=== PATIENT | female | born 1950 | race Caucasian/White ===

== ENCOUNTER 2020-12-11 11:03 | Outpatient (REF) | payer MEDICARE, SELFPAY ==
--- NOTE | ~2020-12-11 | XR_ITS ---
EXAMINATION: XR CHEST CLINICAL INFORMATION: Cough COMPARISON: None TECHNIQUE: 2 views of the chest were obtained. FINDINGS: The lungs are well expanded. There is no focal consolidation, edema, or effusion. No pneumothorax. The cardiomediastinal silhouette is within normal limits. No acute osseous abnormality. XR/XR chest 2V IMPRESSION: No acute pulmonary finding.
== END 2020-12-11 11:04 | disposition home or self-care (01) ==
LOC: HO.XRAY 11:03
PROVIDERS: Absent Provider Internal Medicine Geriatric Medicine; PCP Internal Medicine Geriatric Medicine; Visit Provider Emergency Medicine
DX: R05 Cough (principal)
CPT/HCPCS: 71046

== ENCOUNTER 2022-07-30 10:46 | Outpatient (REF) | payer MEDICARE, SELFPAY ==
--- NOTE | ~2022-07-30 | MM_ITS ---
EXAMINATION: MM SCREENING DIGITAL BREAST TOMOSYNTHESIS, BILATERAL CLINICAL INFORMATION: Screening. Asymptomatic. The lifetime risk of breast cancer based on the Tyrer-Cuzick Model is 5.7%. COMPARISON: Mammography: May 21, 2018 and studies dating back to September 02, 2014 TECHNIQUE: Digital breast tomosynthesis is performed in both the craniocaudal and mediolateral oblique views along with computer-aided detection (CAD). Synthesized 2D images are generated from the tomosynthesis. FINDINGS: The breasts are almost entirely fatty (ACR BI-RADS breast composition Category a). There are no significant masses, abnormal calcifications, or other abnormalities. MM/MM tomosynthesis screening BI IMPRESSION: No significant changes from prior exam. ASSESSMENT: BI-RADS 1: Negative RECOMMENDATION: Routine annual mammography screening. This patient's information was entered into a reminder system with a target due date for their next mammogram.
== END 2022-07-30 10:47 | disposition home or self-care (01) ==
LOC: HO.MAMMO 10:46
PROVIDERS: PCP Internal Medicine Geriatric Medicine; Visit Provider Internal Medicine Geriatric Medicine
DX: Z12.31 Encounter for screening mammogram for malignant neoplasm of breast (principal)
CPT/HCPCS: 77063; 77067

== ENCOUNTER 2023-07-18 12:11 | Outpatient (REF) | payer MEDICARE, SELFPAY ==
--- NOTE | ~2023-07-18 | XR_ITS ---
EXAMINATION: XR ELBOW, LEFT CLINICAL INFORMATION: Left elbow tendinitis, pain began today. COMPARISON: None available. TECHNIQUE: AP, lateral, and oblique views of the left elbow. FINDINGS: The bones and soft tissues are normal. No fracture or joint effusion. Alignment is anatomic. Joint spaces are maintained. XR/XR elbow LT min 3V IMPRESSION: Unremarkable left elbow.
== END 2023-07-18 12:12 | disposition home or self-care (01) ==
LOC: HO.HHCX 12:11
PROVIDERS: Visit Provider Internal Medicine
DX: M77.8 Other enthesopathies, not elsewhere classified (principal)
CPT/HCPCS: 73080

== ENCOUNTER 2023-07-28 12:43 | Outpatient (AMB) | payer MEDICARE, SELFPAY ==
--- NOTE | 2023-07-28 12:53 | MHC.OFFVIS ---
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 Patient reports ongoing pain for a month. She states that she went to a walk in center and they gave her prednisone for her pain which is giving her relief. Patient reports her pain is getting better every day. Allergies acetaminophen [From MIDRIN] Allergy (Severe, Verified 07/28/23 12:57) VOMITING dichloralphenazone [From MIDRIN] Allergy (Severe, Verified 07/28/23 12:57) VOMITING isometheptene [From MIDRIN] Allergy (Severe, Verified 07/28/23 12:57) VOMITING metoclopramide [From REGLAN] Allergy (Severe, Verified 07/28/23 12:57) SEVERE VOMITNG morphine [MORPHINE] Allergy (Severe, Verified 07/28/23 12:57) ANXIOUS, DYSPHORIA, anomalous reaction acyclovir [ACYCLOVIR] Allergy (Intermediate, Verified 07/28/23 12:57) HIVES sumatriptan Allergy (Unknown, Verified 07/28/23 12:57) Unknown amitriptyline Adverse Reaction (Unknown, Verified 07/28/23 12:57) palpitations Amitriptyline Allergy (Unknown, Uncoded 07/28/23 12:57) Unknown Organidin NR Allergy (Unknown, Uncoded 07/28/23 12:57) Unknown Midrin Adverse Reaction (Unknown, Uncoded 05/28/17 00:00) vomiting 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 The patient reports ongoing pain for a month, since 06/2023. She claims she was seen at a Walk-in center and was prescribed Prednisone for her pain, which gave her relief. She states the pain is getting better daily. [facility] Social History (Updated 07/28/23 @ 13:00 by Lili Christianson) Alcohol intake: never Patient Tobacco Use Status: Never used Tobacco Current occupational status: disabled Current occupation: right hand dominant Review of Systems Const All systems reviewed & are unremarkable except as noted in HPI and below Physical Exam Vital Signs: BMI result Body Mass Index 35.3 Const General: cooperative and no acute distress Orientation/consciousness: patient oriented x3 Resp Effort & Inspection: normal respiratory effort and able to speak in complete sentences Cardio Peripheral pulses: Peripheral pulses 2+ throughout Skin General skin exam: no rashes or lesions noted Neuro General: patient oriented x3 Extrem Other: Left elbow: Normal to inspection. No ecchymosis, erythema, or edema. No tenderness to palpation over the olecranon. Minimal tenderness to palpation lateral epicondyle. No tenderness medial epicondyle. Able to full flexion, extend, pronation, and supination. Diminished sensation numbness and tingling bilaterally upper extremities due to diabetic neuropathy. Assessment & Plan Assessment & Plan (1) Left tennis elbow: Code(s): M77.12 - Lateral epicondylitis, left elbow Plan Ms. Bernal is a 72-year-old right hand dominant female who presents in the office today, as a new patient, for an evaluation of left elbow pain. The patient reports ongoing pain for a month, since 06/2023. She claims she was seen at a Walk-in center and was prescribed Prednisone for her pain, which gave her relief. She states the pain is getting better daily. The patient confirms completion of the prescription for Prednisone, which gave her relief from her pain. She is no longer experiencing any symptoms. However, she would like to be referred to be seen for her bilateral upper extremity numbness and tingling in regards to her diabetic neuropathy. She will be scheduled to physiatry for further evaluation and treatment. Follow up with orthopedics will be PRN, or sooner if needed. Patient Instructions: Scribed for Edna Stout PA-C by [facility], on 07/28/2023 at 12:46 pm, EST. Coding Level of Care Code New Pt Level 3 (81343) Diagnoses Left tennis elbow M77.12
[2023-07-28 13:00] VITALS: BMI 35.3
== END 2023-07-28 13:21 | disposition home or self-care (01) ==
PROVIDERS: PCP Internal Medicine Geriatric Medicine; Visit Provider Physician Assistant
DX: M77.12 Lateral epicondylitis, left elbow (principal)
CPT/HCPCS: 99203

== ENCOUNTER → 2023-07-28 12:43 | Outpatient (BNVA) | payer MEDICARE, SELFPAY | PROVIDERS: PCP Internal Medicine Geriatric Medicine; Visit Provider Physician Assistant | DX: M77.12 Lateral epicondylitis, left elbow (principal) | CPT/HCPCS: 99202 ==

== ENCOUNTER 2023-09-24 09:26 | Outpatient (AMB) | payer MEDICARE, SELFPAY ==
[2023-09-24 09:46] VITALS: BMI 34.7
--- NOTE | 2023-09-24 09:46 | A.OFFVIS_ITS ---
Intake Vital Signs 09/24/23 09:46 Height 5 ft 2 in Weight 190 lb BMI 34.7 Intake Visit Reasons: New Prob- B/L Hand Feet pain Intake Note: Elsa 72 yr old female presents today for a new problem visit for bilateral foot and hand pain. States she is experiencing numbness and tingling in her upper and lower extremities. States she is diabetic and feels her symptoms are worsening. States she has had EMG studies about 6-7 years ago. States she has fallen multiple times injuring her knees and hands. Patient has tried P.T with temporary relief. Hx of left hand fx about 5-6 years ago. Allergies acetaminophen [From MIDRIN] Allergy (Severe, Verified 09/24/23 10:00) VOMITING dichloralphenazone [From MIDRIN] Allergy (Severe, Verified 09/24/23 10:00) VOMITING isometheptene [From MIDRIN] Allergy (Severe, Verified 09/24/23 10:00) VOMITING metoclopramide [From REGLAN] Allergy (Severe, Verified 09/24/23 10:00) SEVERE VOMITNG morphine [MORPHINE] Allergy (Severe, Verified 09/24/23 10:00) ANXIOUS, DYSPHORIA, anomalous reaction acyclovir [ACYCLOVIR] Allergy (Intermediate, Verified 09/24/23 10:00) HIVES sumatriptan Allergy (Unknown, Verified 09/24/23 10:00) Unknown amitriptyline Adverse Reaction (Unknown, Verified 09/24/23 10:00) palpitations Amitriptyline Allergy (Unknown, Uncoded 09/24/23 10:00) Unknown Organidin NR Allergy (Unknown, Uncoded 09/24/23 10:00) Unknown Midrin Adverse Reaction (Unknown, Uncoded 09/24/23 10:00) vomiting HPI HPI Comments History of Present Illness Details Diabetic diagnosed 1990. At one time she was on insulin. Now on Trulicity. Non alcohol drinker. Hypothyroid. No history of cancer, hepatitis or HIV. Numbness on her feet and hands, tingling in hands. 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 Trigger finger right middle finger. EMG not available for my review. Was seeing neurologist for memory issues and frequent falls. Does not know what diagnosis was. [facility] Social History Alcohol intake: never Patient Tobacco Use Status: Never used Tobacco Current occupational status: disabled Current occupation: right hand dominant Review of Systems Const All systems reviewed & are unremarkable except as noted in HPI and below Physical Exam Vital Signs: BMI result Body Mass Index 34.7 Constitutional: Patient appears to be in no acute distress, well nourished and well developed. MSK: She complains of trigger finger but none seen on exam today. No intrinsic hand weakness noted. No atrophy noted. Jeff test negative. Carpal compression test negative. Tinel sign negative. Strength is 5/5 in all muscle groups tested. No increased tone noted. Neurological: Neurologic examination of the upper and lower extremities was nonfocal with intact sensation, muscle stretch reflexes and without focal motor deficits . Villarreal?s negative bilaterally. Babinski was down going bilaterally. Clonus was negative. Results Reviewed Results Reviewed: Last HBA1c 7.4 I reviewed records from the following: ortho Assessment & Plan Assessment & Plan (1) Numbness in feet: Code(s): R20.0 - Anesthesia of skin (2) Numbness in both hands: Code(s): R20.0 - Anesthesia of skin (3) Trigger finger of right hand: Code(s): M65.30 - Trigger finger, unspecified finger Qualifiers: Trigger finger location: middle finger Qualified Code(s): M65.331 - Trigger finger, right middle finger Plan Suspect neuropathy, could be related to diabetes or hypothyroidism. No signs of Carpal Tunnel Syndrome clinical on exam. Possible trigger finger right 3rd digit. We will schedule for EMG bilateral upper and lower extremities. We will put on a finger splint for possible trigger finger. Assessment and plan discussed with patient, and patient was agreeable. All questions were answered thoroughly. Carly Talbert MD, NIKOLAI Board Certified, [place] [employer] and Rehabilitation (ABPMR) Board Certified, [place] [employer] Electrodiagnostic Medicine (ABEM) Orders: Orders NE electromyogram (EMG) Today R20.0 - Anesthesia of skin NE nerve conduction velocity Today R20.0 - Anesthesia of skin Coding Level of Care Code New Pt Level 4 (09190) Diagnoses Numbness in feet R20.0 Numbness in both hands R20.0 Trigger middle finger of right hand M65.331 Trigger finger location: middle finger
== END 2023-09-24 10:32 | disposition home or self-care (01) ==
PROVIDERS: PCP Internal Medicine Geriatric Medicine; Visit Provider Physical Medicine & Rehabilitation
DX: R20.0 Anesthesia of skin (principal); M65.331 Trigger finger, right middle finger
CPT/HCPCS: 99204

== ENCOUNTER → 2023-09-24 09:26 | Outpatient (BNVA) | payer MEDICARE, SELFPAY | PROVIDERS: PCP Internal Medicine Geriatric Medicine; Visit Provider Physical Medicine & Rehabilitation | DX: R20.0 Anesthesia of skin (principal); M65.331 Trigger finger, right middle finger | CPT/HCPCS: 99202 ==

== ENCOUNTER 2023-11-06 13:07 | Outpatient (REF) | payer MEDICARE, SELFPAY ==
--- NOTE | 2023-11-06 13:12 | EMG_ITS ---
Chief complaint: History of diabetes, hypothyroidism, numbness on both hands, right worse than left. Numbness on right leg worse than left. Trigger finger right digit 3. Reason for referral: Evaluate for ne Procedure done: Bilateral upper extremities and lower extremity NCS/EMG Precautions and/or limitations: None The limb temperature was monitored continuously and remained between 32-36 degrees C during the performance of the NCS. Nerve Conduction Studies Anti Sensory Summary Table ?Stim Site NR Onset (ms) Norm Onset (ms) Peak (ms) Norm Peak (ms) O-P Amp (?V) Norm O-P Amp Site1 Site2 Delta-0 (ms) Dist (cm) Mark (m/s) Norm Mark (m/s) Left Median Anti Sensory (2nd Digit) Wrist ? 3.3 4.0 <3.6 22.9 >10 Wrist 2nd Digit 3.3 14.0 42 Right Median Anti Sensory (2nd Digit) Wrist ? 3.3 4.7 <3.6 13.3 >10 Wrist 2nd Digit 3.3 14.0 42 Right Radial Anti Sensory (Thumb) Forearm ? 1.4 2.0 <3.1 21.0 Forearm Thumb 1.4 0.0 Left Sural Anti Sensory (Lat Mall) Calf ? 1.9 2.9 <4.0 11.6 >5.0 Calf Lat Mall 1.9 14.0 74 Right Sural Anti Sensory (Lat Mall) Calf ? 2.7 3.5 <4.0 5.3 >5.0 Calf Lat Mall 2.7 14.0 52 Left Ulnar Anti Sensory (5th Digit) Wrist ? 2.8 3.3 <3.7 4.2 >15.0 Wrist 5th Digit 2.8 14.0 50 Right Ulnar Anti Sensory (5th Digit) Wrist ? 2.4 3.1 <3.7 3.2 >15.0 Wrist 5th Digit 2.4 14.0 58 Motor Summary Table ?Stim Site NR Onset (ms) Norm Onset (ms) O-P Amp (mV) Norm O-P Amp iAmp (mV) Amp (1st) (%) Site1 Site2 Delta-0 (ms) Dist (cm) Mark (m/s) Norm Mark (m/s) Left Median Motor (Abd Poll Brev) Wrist ? 3.9 <3.9 4.8 >4.5 6.0 100.0 Elbow Wrist 3.3 20.0 61 >45 Elbow ? 7.2 4.1 5.2 85.4 Right Median Motor (Abd Poll Brev) Wrist ? 4.8 <3.9 6.8 >4.5 8.2 100.0 Elbow Wrist 3.6 19.0 53 >45 Elbow ? 8.4 6.2 7.7 91.2 Left Peroneal Motor (Ext Dig Brev) Ankle ? 3.9 <4.0 2.8 >2.5 3.3 100.0 Ankle Ext Dig Brev 3.9 0.0 B Fib ? 9.8 3.1 3.7 110.7 B Fib Ankle 5.9 30.0 51 >40 Poplt ? 10.5 3.0 3.6 107.1 Poplt B Fib 0.7 5.0 71 >40 Right Peroneal Motor (Ext Dig Brev) Ankle ? 3.0 <4.0 1.2 >2.5 1.3 100.0 Ankle Ext Dig Brev 3.0 0.0 B Fib ? 9.6 1.3 1.6 108.3 B Fib Ankle 6.6 29.0 44 >40 Poplt ? 11.0 1.4 1.6 116.7 Poplt B Fib 1.4 5.0 36 >40 Left Tibial Motor (Abd Morales Brev) Ankle ? 4.3 <5 3.9 >2.5 5.6 100.0 Ankle Abd Morales Brev 4.3 0.0 Knee ? 11.6 1.9 2.4 48.7 Knee Ankle 7.3 34.0 47 >40 Right Tibial Motor (Abd Morales Brev) Ankle ? 3.8 <5 2.9 >2.5 4.3 100.0 Ankle Abd Morales Brev 3.8 0.0 Knee ? 10.7 3.7 5.1 127.6 Knee Ankle 6.9 37.0 54 >40 Left Ulnar Motor (Abd Dig Minimi) Wrist ? 3.0 <3.0 6.4 >5 7.3 100.0 B Elbow Wrist 3.0 18.0 60 >45 B Elbow ? 6.0 5.4 6.4 84.4 A Elbow B Elbow 1.5 10.0 67 >45 A Elbow ? 7.5 5.1 6.1 79.7 Right Ulnar Motor (Abd Dig Minimi) Wrist ? 2.7 <3.0 6.5 >5 7.8 100.0 B Elbow Wrist 3.0 18.0 60 >45 B Elbow ? 5.7 7.2 8.4 110.8 A Elbow B Elbow 1.6 10.0 63 >45 A Elbow ? 7.3 5.9 7.0 90.8 EMG ?Side Muscle Nerve Root Ins Act Fibs Psw Amp Dur Poly Recrt Int Pat Comment Right 1stDorInt Ulnar C8-T1 Nml Nml Nml Nml Nml 0 Nml Complete Right Biceps Musculocut C5-6 Nml Nml Nml Nml Nml 0 Nml Complete Right Triceps Radial C6-7-8 Nml Nml Nml Nml Nml 0 Nml Complete Right Deltoid Axillary C5-6 Nml Nml Nml Nml Nml 0 Nml Complete Right FlexCarpiUln Ulnar C8,T1 Nml Nml Nml Nml Nml 0 Nml Complete Right AbdHallucis MedPlantar S1-2 Nml Nml Nml Nml Nml 0 Nml Complete Right AntTibialis Dp Br Peron L4-5 Nml Nml Nml Nml Nml 0 Nml Complete Right PostTibialis Tibial L5, S1 Nml Nml Nml Nml Nml 0 Nml Complete Right MedGastroc Tibial S1-2 Nml Nml Nml Nml Nml 0 Nml Complete Right VastusMed Femoral L2-4 Nml Nml Nml Nml Nml 0 Nml Complete FINDINGS: Right median motor nerve showed prolonged distal latency, normal amplitude and normal conduction velocity. Bilateral median sensory nerve showed prolonged peak latency. Right peroneal nerve showed normal distal latency, small amplitude and slow conduction velocity across the fibular neck. All other nerves tested were within normal. Concentric needle EMG was performed in selected muscles of the right upper and lower extremity. Study did not reveal signs of electric abnormalities as shown in the table below. IMPRESSION: 1. This is an abnormal study. 2. There is electrodiagnostic evidence for right moderate-severe and left mild median neuropathy at the wrist, consistent with Carpal Tunnel Syndrome. 3. There is electrodiagnostic evidence for right peroneal neuropathy at the fibular neck. 4. There is no electrodiagnostic evidence for ulnar neuropathy, brachial plexopathy, cervical radiculopathy. tibial neuropathy. lumbosacral plexopathy, lumbar radiculopathy, or a more diffuse peripheral neuropathy. CLINICAL COMMENT: For Carpal Tunnel Syndrome: We will refer to Dr. Gonzales for consideration of surgery.. For peroneal neuropathy: Will refer to PT. Watch out for footdrop. Continue good control of diabetes. Thank you for your kind referral. Carly Talbert MD, NIKOLAI Board Certified, [place] Board [employer] and Rehabilitation (ABPMR) Board Certified, [place] Board [employer] Electrodiagnostic [employer] (ABEM) CODIN [id number] x 2 MTDD
== END 2023-11-06 13:08 | disposition home or self-care (01) ==
LOC: HO.NEURO 13:07
PROVIDERS: PCP Internal Medicine Geriatric Medicine; Visit Provider Physical Medicine & Rehabilitation
DX: R20.0 Anesthesia of skin (principal); R20.2 Paresthesia of skin; M65.331 Trigger finger, right middle finger
CPT/HCPCS: 95886; 95913

== ENCOUNTER → 2023-11-06 13:12 | Outpatient (BNV) | payer MEDICARE, SELFPAY | PROVIDERS: PCP Internal Medicine Geriatric Medicine; Visit Provider Physical Medicine & Rehabilitation | DX: G56.03 Carpal tunnel syndrome, bilateral upper limbs (principal); G57.31 Lesion of lateral popliteal nerve, right lower limb | CPT/HCPCS: 95886; 95913 ==

== ENCOUNTER 2023-12-23 12:27 | Outpatient (AMB) | payer MEDICARE, SELFPAY ==
[2023-12-23 13:02] VITALS: BMI 34.7
--- NOTE | 2023-12-23 13:02 | A.OFFVIS_ITS ---
Intake Vital Signs 12/23/23 13:02 Height 5 ft 2 in Weight 190 lb BMI 34.7 Intake Visit Reasons: New Prob-Carpal tunnel syndrome, bilateral Intake Note: Elsa 73 yr old right hand dominant female presents today for her numbness and tingling in bilateral hands. Symptoms have been presents for about 1 year and has worsen in the last few months. States her right is worse. She is also hav0ng locking of her right middle finger every morning. States it takes her a while to straighten her finger and is painful. EMG done with Dr. Fischer. Patient is diabetic and doesn't recall her A1C number. Allergies acetaminophen [From MIDRIN] Allergy (Severe, Verified 12/23/23 13:09) VOMITING dichloralphenazone [From MIDRIN] Allergy (Severe, Verified 12/23/23 13:09) VOMITING isometheptene [From MIDRIN] Allergy (Severe, Verified 12/23/23 13:09) VOMITING metoclopramide [From REGLAN] Allergy (Severe, Verified 12/23/23 13:09) SEVERE VOMITNG morphine [MORPHINE] Allergy (Severe, Verified 12/23/23 13:09) ANXIOUS, DYSPHORIA, anomalous reaction acyclovir [ACYCLOVIR] Allergy (Intermediate, Verified 12/23/23 13:09) HIVES sumatriptan Allergy (Unknown, Verified 12/23/23 13:09) Unknown amitriptyline Adverse Reaction (Unknown, Verified 12/23/23 13:09) palpitations Amitriptyline Allergy (Unknown, Uncoded 12/23/23 13:09) Unknown Organidin NR Allergy (Unknown, Uncoded 12/23/23 13:09) Unknown Midrin Adverse Reaction (Unknown, Uncoded 12/23/23 13:09) vomiting HPI New Prob-Carpal tunnel syndrome, bilateral HPI Details Elsa is a 73 year old right hand dominant Diabetic woman who presents for a NCS review of her bilateral hand numbness. She complains of numbness in the thumb, index, and middle fingers bilaterally, R>L. Symptoms intermittent, but daily, worse at night, and have been present for ~1 year. She also complains of painful locking of her right middle finger. She reports having memory issues and cannot remember her last HgA1c. She reports having neuropathy in her legs PFSH Social History Alcohol intake: never Patient Tobacco Use Status: Never used Tobacco Current occupational status: disabled Current occupation: right hand dominant Review of Systems Const All systems reviewed & are unremarkable except as noted in HPI and below Physical Exam Vital Signs: BMI result Body Mass Index 34.7 Const General: cooperative, healthy appearing and no acute distress Orientation/consciousness: patient oriented x3 HEENT Head: Yes normocephalic and Yes atraumatic Eyes EOM: EOMs intact bilaterally Resp Effort & Inspection: normal respiratory effort and able to speak in complete sentences Cardio Jugular venous distension: no JVD Skin General skin exam: turgor normal Rashes: no rashes Neuro General: patient oriented x3 Extrem Other: Evaluation of Bilateral Upper Extremity: The patient is alert, oriented, and in no acute distress Neuro: Decreased sensation in the median nerve distribution bilaterally. normal sensation in the ulnar nerve distribution bilaterally No thenar or intrinsic wasting Good APB muscle belly firing and good finger cross Vascular: Cap refill brisk ROM: She can make a fist and extend all her digits Visible and palpable locking & catching of the right middle finger Tender over the a1 ashia of the right middle finger Flexion contracture of the right middle finger PIP joint of ~20 degrees After working on ROM exercises she was able to reduce this to ~10 degrees. Skin: No lacerations or abrasions. General: No Ecchymosis. No Erythema or evidence of infection. Nerve Conduction Study: IMPRESSION: 1. This is an abnormal study. 2. There is electrodiagnostic evidence for right moderate-severe and left mild median neuropathy at the wrist, consistent with Carpal Tunnel Syndrome. 3. There is electrodiagnostic evidence for right peroneal neuropathy at the fibular neck. 4. There is no electrodiagnostic evidence for ulnar neuropathy, brachial plexopathy, cervical radiculopathy. tibial neuropathy. lumbosacral plexopathy, lumbar radiculopathy, or a more diffuse peripheral neuropathy. Carly Talbert MD, NIKOLAI 11/06/23 Psych Appearance: grossly normal Affect: normal affect Attitude: cooperative Assessment & Plan Assessment & Plan (1) Carpal tunnel syndrome of right wrist: Code(s): G56.01 - Carpal tunnel syndrome, right upper limb (2) Carpal tunnel syndrome of left wrist: Code(s): G56.02 - Carpal tunnel syndrome, left upper limb (3) Trigger finger, right middle finger: Code(s): M65.331 - Trigger finger, right middle finger (4) Diabetes mellitus: Code(s): E11.9 - Type 2 diabetes mellitus without complications Plan Assessment & Plan: 1. Right carpal tunnel syndrome, moderate-severe Symptoms intermittent, but daily, worse at night This is her primary complaint today. 2. Right middle finger trigger finger I educated her about this condition I discussed operative and non-operative treatment options The patient would like to proceed with surgery The risks and benefits of operative treatment were discussed with the patient and the patient wishes to proceed with surgery. These risks include, but are not limited to risk of damage to blood vessels, nerves, tendons, infection, recurrence, incomplete relief of preoperative symptoms, persistent pain, possib le need for further surgery and the risks associated with regional blocks and anesthesia. The plan is to take the patient to the operating room sometime in the next few weeks for the following procedures: 1. Right carpal tunnel release, under local 2. Right middle finger trigger release, under local All of the preoperative paperwork including the consent was reviewed today. All the patient's questions were answered. The patient understands that they will be contacted by our senior master scheduler soon to schedule this procedure She denies blood thinners, asthma, heart, lung, kidney issues She is a Diabetic and does not know her most recent HgA1c They will need an updated HgA1c that is <8.1% in order to proceed with surgery, and they expressed understanding 3. Left carpal tunnel syndrome, mild Symptoms intermittent, but daily, worse at night Scribed for Caron Gonzales MD by Jorge Haque medical coding technician, on 12/23/23 at 1:35 PM, EST. Coding Level of Care Code New Pt Level 4 (04313) Diagnoses Carpal tunnel syndrome of right wrist G56.01 Carpal tunnel syndrome of left wrist G56.02 Trigger finger, right middle finger M65.331 Diabetes mellitus E11.9
== END 2023-12-23 13:43 | disposition home or self-care (01) ==
PROVIDERS: PCP Internal Medicine Geriatric Medicine; Visit Provider Orthopaedic Surgery
DX: G56.03 Carpal tunnel syndrome, bilateral upper limbs (principal); M65.331 Trigger finger, right middle finger; E11.9 Type 2 diabetes mellitus without complications
CPT/HCPCS: 99204

== ENCOUNTER → 2023-12-23 12:27 | Outpatient (BNVA) | payer MEDICARE, SELFPAY | PROVIDERS: PCP Internal Medicine Geriatric Medicine; Visit Provider Orthopaedic Surgery | DX: G56.01 Carpal tunnel syndrome, right upper limb (principal); G56.02 Carpal tunnel syndrome, left upper limb; M65.331 Trigger finger, right middle finger; E11.9 Type 2 diabetes mellitus without complications | CPT/HCPCS: 99202 ==

== ENCOUNTER 2024-01-13 11:00 | Outpatient (RCR) | payer MEDICARE, SELFPAY ==
--- NOTE | 2023-11-18 12:40 | MHC.PT.EP ---
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 Pt had nerve conduction tested on 11/06/23 which revealed There is electrodiagnostic evidence for right peroneal neuropathy at the fibular neck . Upon assessment, pt has LE sensation and proprioception equal and intact. She presents to PT with current impairments in pain, numbness, decreased LE strength, decreased muscle length, decreased balance, and impaired gait. She is limited functionally by prolonged standing and walking. She is a good candidate for skilled PT in order to address current impairments to maximize safety, functional mobility, and to decrease risk of falls. She is recommended to be seen 2x/week for 4 weeks and will be reassessed at that time Frequency and Duration: The patient will be seen 2x/week for 4 weeks Short Term Goals: Pt will be I with HEP to promote self management of symptoms Pt will improve R DF strength to at least 4+/5 Pt will improve B quad strength to at least 4+/5 Color Specialist Goals: Pt will improve B quad strength to 5/5 to assist with standing and walking Pt will tolerate standing and walking > 15 minutes with improved gait mechanics with LRAD Pt will demonstrate improvements in function as evidenced by statistically significant improvement in LEFI outcome measure Treatment Plan: Modalities to reduce pain, spasms and effusion. Manual therapy to restore motion and function. Therapeutic exercise to improve strength and flexibility. Neuromuscular re-education for posture and balance. Therapeutic activities to return to functional activities of daily living. Electronically signed by: Lilia Long, PT, DPT Please sign and return to therapist. Thank you for your referral.
--- NOTE | 2024-01-13 17:46 | MHC.PT.DC ---
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 She has demonstrated improvements in LE strength. She has improved her balance and gait noted throughout sessions. She is independent with HEP. She is being D/C to HEP. Provided pt with printed, updated copy of HEP. Pt reports no further questions or concerns for PT Electronically signed by: Please sign and return to therapist. Thank you for your referral.
== END 2024-01-13 17:46 | disposition home or self-care (01) ==
LOC: HO.PT 11:00
PROVIDERS: PCP Internal Medicine Geriatric Medicine; Visit Provider Physical Medicine & Rehabilitation
DX: G57.30 Lesion of lateral popliteal nerve, unspecified lower limb (principal)
CPT/HCPCS: 97110; 97112; 97162

== ENCOUNTER 2024-04-15 11:45 | Day surgery (SDC) | payer MEDICARE, SELFPAY ==
--- OUTSIDE RECORDS SUMMARY | 2024-04-15 11:47 | XMS_ITS | Continuity of Care Document ---
Author Organization [facility] Address [address] [place] [address]- Care Team Providers Care Orchard Sprayer Name Role Phone Name Alex MONTANEZ Primary Care Phys[id number] Date(s): 10/11[facility]20 - [facility]10[facility] [address] 4[address] Floor [place], [place] [address] Allergies, Adverse Reactions, Alerts Substance Reaction Severity Status acyclovir Active amitriptyline Active ergotamine Active metoclopramide Active morphine Active dichloralphenazone Active isometheptene mucate Active Imitrex Active Phenergan Active Inderal Active Compazine Active Midodrine Hydrochloride Acti ve Medications aspirin 81 mg oral tablet 1 tablet = 81 mg, By Mouth, Daily, 0 Refills, Maintenance, 12/07/16 15:05:24 Start Date: 12/07/16 Status: Ordered Atorvastatin 10 mg, By Mouth, Daily at bedtime, Maintenance, 06/12/15 14:15:26 Start Date: 06/12/15 Status: Ordered BiPAP Machine See Instructions, # 1 each, Maintenance, , 11/11/19 14:57:00 EST, Compound Start Date: 11/11/19 Status: Ordered Chlorthalidone By Mouth, Daily, 0 Refills, Maintenance, 03/22/19 8:18:00 EDT Start Date: 03/22/19 Status: Ordered Citalopram = 30 mg, By Mouth, Daily, 0 Refills, Maintenance, 06/12/15 14:14:06 Start Date: 06/12/15 Status: Ordered Estrace Vaginal Cream 0.1 mg/g 1 gram, Vaginally, Daily at bedtime, Apply daily at bedtime for 2 weeks and then 2 times per week, # 42 Gm, 3 Refills, Maintenance, 08/24/18 11:25:11 EST Start Date: 08/24/18 Status: Ordered ferrous sulfate 325 mg oral tablet 1 tablet = 325 mg, By Mouth, 2 times a day, 0 Refills, Maintenance, 12/07/16 15:05:46 EST Start Date: 12/07/16 Status: Ordered Flovent 110 mcg Inhaler HFA Refills 0, Maintenance, 08/15/17 8:41:25 Start Date: 08/15/17 Status: Ordered Freestyle Lite Lancets Maintenance, 08/15/17 8:42:53, Compound Start Date: 08/15/17 Status: Ordered Freestyle Lite Test Strips Maintenance, 08/15/17 8:43:07, Compound Start Date: 08/15/17 Status: Ordered glipiZIDE 5 mg oral tablet 5 mg, 1, tablet, By Mouth, Daily, Refills 0, Maintenance Start Date: 09/09/20 Status: Ordered Januvia 25 mg oral tablet 1 tablet = 25 mg, By Mouth, Daily, Maintenance Start Date: 09/09/20 Status: Ordered Latanoprost Ophthalmic 1 drops, Eyes, Both, Daily at bedtime, 0 Refills, Maintenance, 06/12/15 14:16:18 Start Date: 06/12/15 Status: Ordered levothyroxine 112 mcg (0.112 mg) oral capsule 1 capsule = 112 mcg, By Mouth, Daily, Maintenance Start Date: 09/09/20 Status: Ordered Lisinopril = 10 mg, By Mouth, Daily, 0 Refills, Maintenance, 06/12/15 14:14:31 EDT Start Date: 06/12/15 Status: Ordered Metformin = 500 mg, By Mouth, 0 Refills, Maintenance, 02/20/16 14:16:38 Start Date: 02/20/16 Status: Ordered mirabegron 50 mg oral tablet, extended release 1 tablet = 50 mg, By Mouth, Daily, do not crush or chew, # 30 tablet, 2 Refills, Maintenance, 10/12/20 8:43:00 EST, ER Tablet, [facility], Pt needs to make an appointment for more refills!, 155, cm, 05/22/20 20:55:00 EDT, Height Start Date: 10/12/20 Status: Ordered Misc Rx Refills 0, Maintenance, 07/18/17 11:39:09, Compound Start Date: 07/18/17 Status: Ordered ondansetron 4 mg oral tablet 1 tablet = 4 mg, By Mouth, PRN Nausea & Vomiting, 0 Refills, Maintenance, 07/18/17 11:38:32 Start Date: 07/18/17 Status: Ordered oxyCODONE 5 mg oral tablet = 5 mg, By Mouth, Every 6 hours, PRN Pain , Mild, # 30 tablet, 0 Refills, Acute 11/10/16 8:00:00, 11/10/15 12:21:17, Tablet Start Date: 11/10/15 Stop Date: 11/10/16 Status: Ordered Slow Fe (as elemental iron) 45 mg oral tablet, extended release 1 tablet = 45 mg, By Mouth, Daily, 0 Refills, Maintenance, 08/19/18 13:15:21 EST Start Date: 08/19/18 Status: Ordered Vitamin B12 500 mcg/mL injectable solution 0 Refills, Maintenance, 12/07/16 15:06:06 Start Date: 12/07/16 Status: Ordered Vitamin C 500 mg oral tablet 1 tablet = 500 mg, By Mouth, Daily, 0 Refills, Maintenance, 08/15/17 8:42:07 Start Date: 08/15/17 Status: Ordered Vitamin D 19903 iu oral capsule 50,000 International_Units, 1, capsule, By Mouth, Every week, Refills 0, Maintenance, 08/15/17 8:42:30 Start Date: 08/15/17 Status: Ordered Problem List Condition Effective Dates Status Health Status Inform ant Asthma(Confirmed) Active Vulvar atrophy(Confirmed) Active Depression(Confirmed) Active 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
--- OUTSIDE RECORDS SUMMARY | 2024-04-15 11:47 | XMS_ITS | Continuity of Care Document ---
Author Organization [facility] Address [address] [place] [address]- Care Team Providers Care Configuration Management Specialist Name Role Phone Name Alex MONTANEZ Primary Care Physician [phone] [id number] Date(s): 02/13/24 - 03/14/24 [facility] [address] [place] [address]- Attending Physician: Irving Marks Admitting Physician: Irving Marks Referring Physician: Irving Marks Referring Physician: Kinga Borrego Allergies, Adverse Reactions, Alerts Substance Reaction Severity Status acyclovir Active amitriptyline Active ergotamine Active metoclopramide Active morphine Active dichloralphenazone Active isometheptene mucate Active Imitrex Active Phenergan Active Inderal Active Compazine Active Midodrine Hydrochloride Acti ve Medications amLODIPine 5 mg oral tablet 0 Refills, Maintenance, 06/07/23 11:25:00 EDT, Partial fill upon patient request if the prescription is for a schedule II opioid drug. Start Date: 06/07/23 Status: Ordered aspirin 81 mg oral capsule 1 capsule = 81 mg, By Mouth, Daily, Maintenance Start Date: 06/07/23 Status: Ordered ASPIRIN LOW EC 81MG TAB TAKE 1 TABLET BY MOUTH ONCE DAILY Start Date: 11/22/22 Status: Ordered atorvastatin 10 mg oral tablet 1 tablet = 10 mg, By Mouth, Daily, # 30 tablet, 0 Refills, Maintenance, 11/22/22 1:55:00 EST, Partial fill upon patient request if the prescription is for a schedule II opioid drug. Start Date: 11/22/22 Status: Ordered cetirizine 10 mg oral tablet 1 tablet = 10 mg, By Mouth, Daily, # 30 tablet, 0 Refills, Maintenance, 11/22/22 1:54:00 EST, Tablet, Partial fill upon patient request if the prescription is for a schedule II opioid drug. Start Date: 11/22/22 Status: Ordered chlorthalidone 50 mg oral tablet TAKE 1 TABLET BY MOUTH ONCE DAILY Start Date: 06/07/23 Status: Ordered citalopram 20 mg oral tablet TAKE 1 & 1/2 (ONE & ONE-HALF) TABLETS BY MOUTH ONCE DAILY Start Date: 11/22/22 Status: Ordered citalopram 20 mg oral tablet TAKE 1 & 1/2 (ONE & ONE-HALF) TABLETS BY MOUTH ONCE DAILY Start Date: 08/04/23 Status: Ordered Farxiga 10 mg oral tablet TAKE 1 TABLET BY MOUTH ONCE DAILY IN THE MORNING Start Date: 06/06/23 Status: Ordered ferrous sulfate 324 mg (65 mg elemental iron) oral delayed release tablet 0 Refills, Maintenance, 11/22/22 1:55:00 EST, Partial fill upon patient request if the prescriptionis for a schedule II opioid drug. Start Date: 11/22/22 Status: Ordered ferrous sulfate 324 mg (65 mg elemental iron) oral delayed release tablet TAKE 1 TABLET BY MOUTH ON MONDAYS, FRIDAY, AND FRIDAYS Start Date: 08/04/23 Status: Ordered hydrALAZINE 10 mg oral tablet TAKE 1 TABLET BY MOUTH TWICE DAILY Start Date: 08/04/23 Status: Ordered levothyroxine 0.112 mg oral tablet 1 tablet = 112 mcg, By Mouth, Daily, # 30 tablet, 0 Refills, Maintenance, 11/22/22 1:55:00 EST, Tablet, Partial fill upon patient request if the prescription is for a schedule II opioid drug. Start Date: 11/22/22 Status: Ordered Lumigan 0.01% ophthalmic solution INSTILL 1 DROP INTO EACH EYE ONCE DAILY Start Date: 06/07/23 Status: Ordered Trulicity Pen 1.5 mg/0.5 mL subcutaneous solution INJECT 0.5 ML SUBCUTANEOUSLY ONCE A WEEK IN THE ABDOMEN, THIGH, OR UPPER ARM ROTATING INJECTION SITES Start Date: 08/04/23 Status: Ordered Vitamin B-12 1000 mcg oral tablet 1,000 mcg, 1, tablet, By Mouth, Daily, # 30 tablet, Refills 0, Maintenance, 11/22/22 1:55:00 EST, Partial fill upon patient request if the prescription is for a schedule II opioid drug. Start Date: 11/22/22 Status: Ordered Vitamin C By Mouth, Daily, 0 Refills, Maintenance, Partial fill upon patient request if the prescription is for a schedule II opioid drug. Start Date: 06/07/23 Status: Ordered Vitamin D3 2000 intl units oral tablet TAKE 1 TABLET BY MOUTH ONCE DAILY Start Date: 11/22/22 Status: Ordered Vitamin D3 50 mcg (2000 intl units) oral tablet, chewable 1 tablet = 50 mcg, By Mouth, Daily, 0 Refills, Maintenance, 02/04/23 8:07:00 EDT, Partial fill uponpatient request if the prescription is for a schedule II opioid drug. 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 Confirmed Active Glaucoma Confirmed 07/03/15 Active History of subarachnoid hemorrhage - while anticoagulated for PE Confirmed Active History of pulmonary embolus (PE) Confirmed Active Patient is Anabaptism Confirmed Active Hypercholesterolemia Confirmed Active Hypertension Confirmed Active Hypothyroidism Confirmed Active Morbid obesity Confirmed Active Obstructive sleep apnea Confirmed Active Pernicious anemia Confirmed Active Severe obesity (BMI 35.0-39.9) with comorbidity Confirmed Active Type II diabetes mellitus Confirmed Active Vitamin D deficiency Confirmed Active Social History Social History Type Response Smoking Status Never smoker entered on: 06/13/15 Sex Patient Care team information Care Team Personnel Name: Hayde Jerome RN Position: [facility] RN Member Role: Primary Care Nurse Name: Alex Veras MD Position: [facility] Outreach Member Role: PCP Address: Address: [address] [place] [address]- Name: Angelica Wylie RN Position: [facility] RN Member Role: Primary Care Nurse Name: Cherelle Pedraza RN Position: [facility] Onco RN Member Role: Primary Care Nurse Name: Emily Rivera RN Position: [facility] SN RN Member Role: Primary Care Nurse Name: Mio Marx MD Position: [facility] Renal MD Member Role: Lifetime Consulting Physician Address: Address: [address] [place] [address] [facility] [place] [address]- Care Team Related Persons Name: LARS BARAHONA Address: [address] [place] [address] Name: LAURE GARCIA Address: home [address] [facility] [place], [place]
--- OUTSIDE RECORDS SUMMARY | 2024-04-15 11:47 | XMS_ITS | Continuity of Care Document ---
Author Organization [facility] Address [address] [place] [address]- Care Team Providers Care Table Maker Name Role Phone Name Alex MONTANEZ Primary [facility] Physician [id number] Date(s): 10/09/20 - 11/08/20 [facility] [address] [address]- Attending Physician: Irving Marks Admitting Physician: Irving Marks Referring Physician: AdmtrIrving Allergies, Adverse Reactions, Alerts Substance Reaction Severity Status acyclovir Active amitriptyline Active Imitrex Active Phenergan Active Inderal Active Midodrine Hydrochloride Acti ve ergotamine Active metoclopramide Active isometheptene mucate Active morphine Active dichloralphenazone Active Compazine Active Medications aspirin 81 mg oral tablet 1 [...] Refills, Maintenance, 10/12/20 8:43:00 EST, ER Tablet, [facility], Pt needs to make an [...] Start Date: 08/15/17 Status: Ordered Vitamin D 63873 iu oral capsule 50,000 International_Units, 1, capsule, [...] of pulmonary embolus (PE)(Confirmed) Active Patient is Taoist(Confirmed) Active Hypercholesterolemia(Confirmed) Active Hypertension(Confirmed) Active Hypothyroidism(Confirmed) Active Morbid obesity(Confirmed) Active Obstructive sleep apnea(Confirmed) Active Pernicious anemia(Confirmed) Active Type II diabetes mellitus(Confirmed) Active Vitamin D deficiency(Confirmed) Active Social History Social History Type Response Smoking Status Never smoker entered on: 06/13/15 Sex
--- OUTSIDE RECORDS SUMMARY | 2024-04-15 11:47 | XMS_ITS | Continuity of Care Document ---
Author Organization [facility] Address [address] [place] [address]- Care Team Providers Care Landscape Account Manager Name Role Phone Name Alex MONTANEZ Primary Care Physician [phone] Encounter [facility] Date(s): 12/23/22 - 01/22/23 [facility] [address] [place], [place] [address] Attending Physician: Irving Marks Admitting Physician: AdmtrIrving Referring Physician: Admtr Ar8 Allergies, Adverse Reactions, Alerts Substance Reaction Severity Status acyclovir Active amitriptyline Active ergotamine Active metoclopramide Active morphine Active dichloralphenazone Active isometheptene mucate Active Imitrex Active Phenergan Active Inderal Active Compazine Active Midodrine Hydrochloride Acti ve Medications ASPIRIN LOW EC 81MG TAB TAKE 1 [...] opioid drug. Start Date: 11/22/22 Status: Ordered citalopram 20 mg oral tablet TAKE 1 & 1/2 (ONE & ONE-HALF) TABLETS BY MOUTH ONCE DAILY Start Date: 11/22/22 Status: Ordered ferrous sulfate 324 mg (65 mg elemental iron) oral delayed release tablet 0 Refills, Maintenance, 11/22/22 1:55:00 EST, Partial fill upon patient request if the prescriptionis for a schedule II opioid drug. Start Date: 11/22/22 Status: Ordered glipiZIDE 5 mg oral tablet 5 mg, 1, tablet, By Mouth, Daily, # 30 tablet, Refills 0, Maintenance, 11/22/22 1:55:00 EST, Partial fill upon patient request if the prescription is for a schedule II opioid drug. Start Date: 11/22/22 Status: Ordered levothyroxine 0.112 mg oral tablet 1 tablet = 112 mcg, By Mouth, Daily, # 30 tablet, 0 Refills, Maintenance, 11/22/22 1:55:00 EST, Tablet, Partial fill upon patient request if the prescription is for a schedule II opioid drug. Start Date: 11/22/22 Status: Ordered Trulicity Pen 1.5 mg/0.5 mL subcutaneous solution 0.5 mL = 1.5 mg, Subcutaneous Injection, Every week, 0 Refills, Maintenance, 11/22/22 1:54:00 EST, Solution, Partial fill upon patient request if the prescription is for a schedule II opioid drug. Start Date: 11/22/22 Status: Ordered Vitamin B-12 1000 mcg oral tablet 1,000 mcg, 1, tablet, By Mouth, Daily, # 30 tablet, Refills 0, Maintenance, 11/22/22 1:55:00 EST, Partial fill upon patient request if the prescription is for a schedule II opioid drug. 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 Confirmed Active History of subarachnoid hemorrhage - while anticoagulated for PE Confirmed Active History of pulmonary embolus (PE) Confirmed Active Patient is Episcopal Confirmed Active Hypercholesterolemia Confirmed Active Hypertension Confirmed [...] Team Personnel Name: Hayde Jerome RN Position: S RN Member Role: Primary Care Nurse Name: Alex Veras MD Position: S Outreach Member Role: PCP Address: Address: [address] [place] [id number] Name: Angelica Wylie RN Position: S RN Member Role: Primary Care Nurse Name: Cherelle Pedraza RN Position: [facility] RN Member Role: Primary Care Nurse Name: Emily Rivera RN Position: [facility] SN RN Member Role: Primary Care Nurse Care Team Related Persons Name: LARS BARAHONA Address: [address] [place] [address] Name: LAURE GARCIA Address: home [address] [facility]
--- OUTSIDE RECORDS SUMMARY | 2024-04-15 11:47 | XMS_ITS | Continuity of Care Document ---
Author Organization [facility] Address [address] [place] [address]- Care Team Providers Care Online Merchandising Manager Name Role Phone Name Alex MONTANEZ Primary [facility] Phys[id number] Date(s): [facility]/22 - 03/06/22 [facility] [address] [place] [address]- Attending Physician: Irving Marks Admitting Physician: Irving [...] Daily, do not crush or chew, # 90 tablet, 3 Refills, Maintenance, 02/04/22 8:47:00 EDT, ER Tablet, [facility], Pt needs to make an appointment for more refills!, 155, cm, 02/04/22 8:32:00 EDT, Height, 105.7, kg,... Start Date: 02/04/22 Status: Ordered Misc Rx Refills 0, Maintenance, [...] Start Date: 08/15/17 Status: Ordered Vitamin D 11962 iu oral capsule 50,000 International_Units, 1, capsule, [...] of pulmonary embolus (PE)(Confirmed) Active Patient is Worship(Confirmed) Active Hypercholesterolemia(Confirmed) Active Hypertension(Confirmed) Active Hypothyroidism(Confirmed) Active Morbid obesity(Confirmed) Active Obstructive sleep apnea(Confirmed) Active Pernicious anemia(Confirmed) Active Severe obesity(Confirmed) Active Type II diabetes mellitus(Confirmed) Active Vitamin D deficiency(Confirmed) Active Social History Social History Type Response Smoking Status Never smoker entered on: 06/13/15 Sex
--- OUTSIDE RECORDS SUMMARY | 2024-04-15 11:47 | XMS_ITS | Continuity of Care Document ---
Author Organization [facility] Address [address] [place] [address]- Care Team Providers Care Machinist General Name Role Phone Name Alex MONTANEZ Primary Care Physician [phone] [facility] [id number] Date(s): 12/22/20 - 01/21/21 [facility] [address] [address]- Attending Physician: Irving Marks Admitting Physician: Irving [...] not crush or chew, # 30 tablet, 0 Refills, Maintenance, 01/04/21 15:56:00 EDT, ER Tablet, [facility], Pt needs to make an appointment for more refills!, 155, cm, 05/22/20 20:55:00 EDT, Height Start Date: 01/04/21 Status: Ordered Misc Rx Refills 0, Maintenance, [...] Start Date: 08/15/17 Status: Ordered Vitamin D 78361 iu oral capsule 50,000 International_Units, 1, capsule, [...] of pulmonary embolus (PE)(Confirmed) Active Patient is Yazidi(Confirmed) Active Hypercholesterolemia(Confirmed) Active Hypertension(Confirmed) Active Hypothyroidism(Confirmed) Active Morbid obesity(Confirmed) Active Obstructive sleep apnea(Confirmed) Active Pernicious anemia(Confirmed) Active Type II diabetes mellitus(Confirmed) Active Vitamin D deficiency(Confirmed) Active Social History Social History Type Response Smoking Status Never smoker entered on: 06/13/15 Sex
--- OUTSIDE RECORDS SUMMARY | 2024-04-15 11:47 | XMS_ITS | Continuity of Care Document ---
Author Organization [facility] Address [address] [place] [address]- Care Team Providers Care Ebd Teacher Name Role Phone Name Alex MONTANEZ Primary Care Physician [phone] Encounter [facility] Date(s): 05/07/23 - 06/06/[address] [address] Allergies, Adverse Reactions, Alerts Substance Reaction Severity Status acyclovir Active amitriptyline Active ergotamine Active dichloralphenazone Active Imitrex Active Phenergan Active Inderal Active Midodrine Hydrochloride Acti ve metoclopramide Active isometheptene mucate Active morphine Active Compazine Active Medications amLODIPine 10 mg oral tablet 10 mg, 1, tablet, By Mouth, Daily, Refills 0, Maintenance, 02/04/23 8:08:00 EDT, Partial fill upon patient request if the prescription is for a schedule II opioid drug. Start Date: 02/04/23 Status: Ordered ASPIRIN LOW EC 81MG TAB [...] ONCE DAILY Start Date: 11/22/22 Status: Ordered Farxiga 10 mg oral tablet [...] drug. Start Date: 11/22/22 Status: Ordered Vitamin D3 [...] pulmonary embolus (PE) Confirmed Active Patient is Taoist Confirmed Active Hypercholesterolemia Confirmed Active Hypertension Confirmed [...] Team Personnel Name: Hayde Jerome RN Position: [facility] RN Member Role: Primary Care Nurse Name: Alex Veras MD Position: [facility] Outreach Member Role: PCP Address: Address: [address] [place] [address]- Name: Angelica Wylie RN Position: [facility] RN Member Role: Primary Care Nurse Name: Cherelle Pedraza RN Position: [facility] RN Member Role: Primary Care Nurse Name: Emily Rivera RN Position: [facility] SN RN Member Role: Primary Care Nurse Name: Mio Marx MD Position: [facility] Renal MD Member Role: Lifetime Consulting Physician Address: Address: [address] [facility] [place] [address]- Care Team Related Persons Name: LARS BARAHONA Address: [address] [place] [address] Name: LAURE GARCIA Address: [address] [facility]
--- OUTSIDE RECORDS SUMMARY | 2024-04-15 11:47 | XMS_ITS | Continuity of Care Document ---
Author Organization [facility] Address [address] [place] [address]- Care Team Providers Care Virginia Line Attendant Name Role Phone Name Alex MONTANEZ Primary Care Physician [phone] Encounter [facility] [place] Date(s): 12/19/22 - 01/22/23 [facility] [address] [place] [address]- Attending Physician: Denis Hernandez MD Admitting Physician: Denis Hernandez MD Referring Physician: Mio Marx MD Allergies, Adverse Reactions, Alerts Substance Reaction Severity [...] pulmonary embolus (PE) Confirmed Active Patient is Catholic Confirmed Active Hypercholesterolemia Confirmed Active Hypertension Confirmed [...] S Outreach Member Role: PCP Address: Address: [address] [place] [address] Name: Angelica Wylie RN Position: S RN Member Role: Primary Care Nurse Name: Cherelle Pedraza RN Position: S RN Member Role: Primary Care Nurse Name: Emily Rivera RN Position: [facility] SN RN Member Role: Primary Care Nurse Care Team Related Persons Name: LARS BARAHONA Address: [address] [place] [address] Name: LAURE GARCIA Address: home [address] [facility]
--- OUTSIDE RECORDS SUMMARY | 2024-04-15 11:47 | XMS_ITS | Continuity of Care Document ---
Author Organization [facility] Address [address] [place] [address]- Care Team Providers Care Painter Shipyard Name Role Phone Name Alex MONTANEZ Primary Care Physician En[place] [facility] [place] Date(s): 08/04/23 - 09/03/23 [facility] [address] [address]- Attending Physician: Irving Marks Admitting Physician: Irving [...] pulmonary embolus (PE) Confirmed Active Patient is Adventism Confirmed Active Hypercholesterolemia Confirmed Active Hypertension Confirmed [...] Team Personnel Name: Hayde Jerome RN Position: [facility] RN Member Role: Primary Care Nurse Name: Alex Veras MD Position: [facility] Outreach Member Role: PCP Address: Address: [address] [place] [address]- Name: Angelica Wylie RN Position: [facility] RN Member Role: Primary Care Nurse Name: Cherelle Pedraza RN Position: [facility] RN Member Role: Primary Care Nurse Name: Emily Rivera RN Position: [facility] RN Member Role: Primary Care Nurse Name: Mio Marx MD Position: [facility] Renal MD Member Role: Lifetime Consulting Physician Address: Address: [address] [place] [address] [facility] [place] [address]- Care Team Related Persons Name: LARS BARAHONA Address: [address] [place] [address] Name: LAURE GARCIA Address: home [address] [facility] [place]
--- OUTSIDE RECORDS SUMMARY | 2024-04-15 11:47 | XMS_ITS | Continuity of Care Document ---
Author Organization [facility] Emanuel frank [facility] Address [address] 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 Name Role Phone Name Alex MONTANEZ Primary Care Physician En[place] [facility] [place] Date(s): 02/04/23 - 03/06/23 [facility] [address], [address] [place] [address]- Attending Physician: Irving Marks Admitting Physician: Irving Marks Referring Physician: AdmtrIrving Allergies, Adverse Reactions, Alerts Substance Reaction Severity Status acyclovir Active amitriptyline Active ergotamine Active metoclopramide Active morphine Active dichloralphenazone Active isometheptene mucate Active Imitrex Active Phenergan Active Inderal Active Compazine Active Midodrine Hydrochloride Acti ve Medications amLODIPine 10 mg oral tablet 10 [...] pulmonary embolus (PE) Confirmed Active Patient is Jehovah's witness Confirmed Active Hypercholesterolemia Confirmed Active Hypertension Confirmed Active Hypothyroidism Confirmed Active Morbid obesity Confirmed Active Obstructive sleep apnea Confirmed Active Pernicious anemia Confirmed Active Severe obesity (BMI 35.0-39.9) with comorbidity Confirmed Active Type II diabetes mellitus Confirmed Active Vitamin D deficiency Confirmed Active Social History Social History Type Response Smoking Status Never smoker entered on: 06/13/15 Sex Laboratory * Event Display: Laboratory Result Scanned Authored Date: Patient Care team information Care Team Personnel Name: Hayde Jerome RN Position: S RN Member Role: Primary Care Nurse Name: Name Alex MONTANEZ Position: S Outreach Member Role: PCP Address: Address: [address] [place] [address] Name: Angelica Wylie RN Position: S RN Member Role: Primary Care Nurse Name: Cherelle Pedraza RN Position: S RN Member Role: Primary Care Nurse Name: Emily Rivera RN Position: [facility] SN RN Member Role: Primary Care Nurse Care Team Related Persons Name: LARS BARAHONA Address: [address] [place] [address] Name: LAURE GARCIA Address: home [address] [facility] [place] [place]
--- OUTSIDE RECORDS SUMMARY | 2024-04-15 11:47 | XMS_ITS | Continuity of Care Document ---
Author Organization [facility] Address [address] [facility], [address] [place] [address]- Care Team Providers Care Collar Separator Name Role Phone Name Alex MONTANEZ Primary Care Physician [facility] [id number] Date(s): 03/08/21 - 04/07/21 [facility] [employer] [facility] [address] [facility], [address] [place], [place] [address] Attending Physician: Irving Marks Admitting Physician: AdmIrving patel Referring Physician: AdmtrIrving Allergies, Adverse Reactions, Alerts [...] chew, # 90 tablet, 3 Refills, Maintenance, 03/08/21 16:32:00 EDT, ER Tablet, [facility], Pt needs to make an appointment for more refills!, 155, cm, 05/22/20 20:55:00 EDT, Height Start Date: 03/08/21 Status: Ordered Misc Rx Refills 0, Maintenance, [...] Start Date: 08/15/17 Status: Ordered Vitamin D 51051 iu oral capsule 50,000 International_Units, 1, capsule, [...] of pulmonary embolus (PE)(Confirmed) Active Patient is Congregation(Confirmed) Active Hypercholesterolemia(Confirmed) Active Hypertension(Confirmed) Active Hypothyroidism(Confirmed) Active Morbid obesity(Confirmed) Active Obstructive sleep apnea(Confirmed) Active Pernicious anemia(Confirmed) Active Type II diabetes mellitus(Confirmed) Active Vitamin D deficiency(Confirmed) Active Social History Social History Type Response Smoking Status Never smoker entered on: 06/13/15 Sex
--- OUTSIDE RECORDS SUMMARY | 2024-04-15 11:47 | XMS_ITS | Continuity of Care Document ---
Author Organization [facility] [facility] Address [address] [facility], [address] [place] [address]- Care Team Providers Care General Maintenance Technician Name Role Phone Name Alex MONTANEZ Primary [facility] Phys[id number] [address] [facility], [address] [place] [address]- Allergies, Adverse Reactions, Alerts Substance Reaction Severity [...] not crush or chew, # 90 tablet, 1 Refills, Maintenance, 10/24/21 17:02:00 EST, ER Tablet, [facility], Pt needs to make an appointment for more refills!, 155, cm, 03/08/21 16:36:00 EDT, Height, 105.7, kg... Start Date: 10/24/21 Status: Ordered Misc Rx Refills 0, Maintenance, [...] Start Date: 08/15/17 Status: Ordered Vitamin D 95122 iu oral capsule 50,000 International_Units, 1, capsule, [...] of pulmonary embolus (PE)(Confirmed) Active Patient is Confucianism(Confirmed) Active Hypercholesterolemia(Confirmed) Active Hypertension(Confirmed) Active Hypothyroidism(Confirmed) Active Morbid obesity(Confirmed) Active Obstructive sleep apnea(Confirmed) Active Pernicious anemia(Confirmed) Active Type II diabetes mellitus(Confirmed) Active Vitamin D deficiency(Confirmed) Active Social History Social History Type Response Smoking Status Never smoker entered on: 06/13/15 Sex
--- OUTSIDE RECORDS SUMMARY | 2024-04-15 11:47 | XMS_ITS | Continuity of Care Document ---
Author Organization [facility] Address [address] [place] [address]- Care Team Providers Care Lab Support Tech Name Role Phone Name Alex MONTANEZ Primary Care Physician Encounter [facility] [place] Date(s): 04/25/20 - 05/25/20 [facility] [address] [address]- [facility] Allergies, Adverse Reactions, Alerts Substance Reaction Severity [...] 8:43:07, Compound Start Date: 08/15/17 Status: Ordered Latanoprost Ophthalmic 1 drops, Eyes, Both, Daily at bedtime, 0 Refills, Maintenance, 06/12/15 14:16:18 Start Date: 06/12/15 Status: Ordered levothyroxine 100 mcg (0.1 mg) oral capsule 1 capsule = 100 mcg, By Mouth, Daily, 0 Refills, Maintenance, 11/11/19 13:34:00 EST Start Date: 11/11/19 Status: Ordered Lisinopril = 10 mg, By Mouth, Daily, 0 Refills, Maintenance, 06/12/15 14:14:31 EDT Start Date: 06/12/15 Status: Ordered Metformin = 500 mg, By Mouth, 0 Refills, Maintenance, 02/20/16 14:16:38 Start Date: 02/20/16 Status: Ordered mirabegron 50 mg oral tablet, extended release 1 tablet = 50 mg, By Mouth, Daily, do not crush or chew, # 30 tablet, 5 Refills, Maintenance, 03/14/20 14:26:00 EDT, ER Tablet, [facility], Pt needs to make an appointment for more refills., 155, cm, 12/10/19 10:35:00 EST, Height Start Date: 03/14/20 Status: Ordered Misc Rx Refills 0, Maintenance, [...] Start Date: 08/15/17 Status: Ordered Vitamin D 77302 iu oral capsule 50,000 International_Units, 1, capsule, [...] of pulmonary embolus (PE)(Confirmed) Active Patient is Muslim(Confirmed) Active Hypercholesterolemia(Confirmed) Active Hypertension(Confirmed) Active Hypothyroidism(Confirmed) Active Morbid obesity(Confirmed) Active Obstructive sleep apnea(Confirmed) Active Pernicious anemia(Confirmed) Active Type II diabetes mellitus(Confirmed) Active Vitamin D deficiency(Confirmed) Active Social History Social History Type Response Smoking Status Never smoker entered on: 06/13/15 Sex
--- OUTSIDE RECORDS SUMMARY | 2024-04-15 11:48 | XMS_ITS | Continuity of Care Document ---
Author Organization [facility] Address [address] [place] [address]- Care Team Providers Care Machine Cleaner Name Role Phone Name Alex MONTANEZ Primary Care Physician [phone] [id number] Date[facility] - 11/03/[address] [address]- Discharge Disposition: A-D/C Walkout Attending Physician: Not on Staff, Attending MD Admitting Physician: Not on Staff, Admitting MD Referring Physician: Not on Staff, Referring MD Allergies, Adverse Reactions, Alerts Substance Reaction [...] Refills, Maintenance, 02/04/22 8:47:00 EDT, ER Tablet, 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 Confirmed Active History of pulmonary embolus (PE) Confirmed Active Patient is Pentecostal Confirmed Active Hypercholesterolemia Confirmed Active Hypertension Confirmed Active Hypothyroidism Confirmed Active Morbid obesity Confirmed Active Obstructive sleep apnea Confirmed Active Pernicious anemia Confirmed Active Severe obesity Confirmed Active Type II diabetes mellitus Confirmed Active Vitamin D deficiency Confirmed Active Results Radiology Reports * Exam Date Time Procedure Performing Provider Status 11/03/22 2:07 AM Chest 2 Views Frontal and Lat Annabella Briones; Auth (Verified) Notes: (Chest 2 Views Frontal and Lat) Reason For Exam: Chest Pain;Other: RESULT: Chest 2 Views Frontal and Lat Chest 2 Views Frontal and Lat Hx of Present Illness: fall today; Reason: Other:; Chest Pain; Clinical Question(s): Other: COMPARISON: 10/26/2015. FINDINGS: LINES AND TUBES: None. LUNGS AND PLEURA: Clear lungs. Normal pulmonary vascularity. No pleural effusion. No pneumothorax. HEART, MEDIASTINUM AND MARGOT: Heart is normal in size. Normal mediastinal and hilar contour. BONES AND SOFT TISSUES: No acute abnormality. IMPRESSION: No acute abnormality. WSN: [id number] Ordering Physician: Ta Houston Dictated By: Noemi Rodríguez MD Dictated Date/Time: 11/03/22 8:24 am Reviewed By: Noemi Rodríguez MD Signed By: Noemi Rodríguez MD Signed Date/Time: 11/03/22 8:24 am Transcribed By: LULU Transcribed Date/Time: 11/03/22 8:24 am Vital Signs Most recent to oldest [Reference Range]: 1 2 3 Oxygen Saturation [94-100 %] 100 % (11/03/22 10:40 AM) 100 % (11/03/22 8:12 AM) 100 % (11/03/22 6:14 AM) Pulse Rate [55-90 bpm] 62 bpm (11/03/22 10:40 AM) 63 bpm (11/03/22 8:12 AM) 65 bpm (11/03/22 6:14 AM) Blood Pressure [90-138/55-84 mm Hg] 185/79mm Hg *H* (11/03/22 10:40 AM) 176/84mm Hg *H* (11/03/22 8:12 AM) 187/78mm Hg *H* (11/03/22 6:14 AM) Temperature [96.8-100.4 DegF] 98.6 DegF (11/03/22 10:40 AM) 98.0 DegF (11/03/22 8:12 AM) 97.8 DegF (11/03/22 6:14 AM) Mode of Delivery (Oxygen) Room air (11/03/22 10:40 AM) Room air (11/03/22 8:12 AM) Room air (11/03/22 6:14 AM) Blood pressure sites Arm, right (11/03/22 10:40 AM) Arm, right (11/03/22 8:12 AM) Arm, right (11/03/22 6:14 AM) Temperature Route Oral (11/03/22 10:40 AM) Oral (11/03/22 8:12 AM) Oral (11/03/22 6:14 AM) Social History Social History Type Response Smoking Status Never smoker entered on: 06/13/15 Sex EKG study * Event Display: ECG 12-Lead Authored Date: Please click on pdf link to open report * Event Display: ECG 12-Lead Authored Date: Ventricular Rate: 68 BPM QRS Duration: 98 ms Q-T Interval: 424 ms QTC Calculation(Bazett): 450 ms R [place]: 22 degrees T [place]: 46 degrees Normal sinus rhythm RSR' or QR pattern in V1 suggests right ventricular conduction delay Cannot rule out Anterior infarct , age undetermined Abnormal ECG When compared with ECG of 01-NOV-2015 08:53, Confirmed by KAROLINA PAYNE MD ([id number]) on 11/03/2022 5:25:44 PM [place]: KAROLINA PAYNE MD Note * BHSPowerscribe , CIS S: TRANSCRIBE Noemi Rodríguez MD: VERIFY Event Display: Result: Authored Date: [id number] Chest 2 Views Frontal and Lat Hx of Present Illness: fall today; Reason: Other:; Chest Pain; Clinical Question(s): Other: COMPARISON: 10/26/2015. FINDINGS: LINES AND TUBES: None. LUNGS AND PLEURA: Clear lungs. Normal pulmonary vascularity. No pleural effusion. No pneumothorax. HEART, MEDIASTINUM AND MARGOT: Heart is normal in size. Normal mediastinal and hilar contour. BONES AND SOFT TISSUES: No acute abnormality. IMPRESSION: No acute abnormality. WSN: [id number] Ordering Physician: Ta Houston Dictated By: Noemi Rodríguez MD Dictated Date/Time: 11/03/22 8:24 am Reviewed By: Noemi Rodríguez MD Signed By: Noemi Rodríguez MD Signed Date/Time: 11/03/22 8:24 am Transcribed By: LULU Transcribed Date/Time: 11/03/22 8:24 am Patient Care team information Care Team Personnel Name: Hayde Jeroem RN Position: S RN Member Role: Primary Care Nurse Name: Alex Veras MD Position: S Outreach Member Role: PCP Address: Address: [address] [place] [address] Name: Emily Rivera RN Position: [facility] SN RN Member Role: Primary Care Nurse Care Team Related Persons Name: LARS BARAHONA Address: [address] [place] [address] Name: LAURE GARCIA Address: home [address] [facility]
--- OUTSIDE RECORDS SUMMARY | 2024-04-15 11:48 | XMS_ITS | Continuity of Care Document ---
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 Name Role Phone Name Alex MONTANEZ Primary Care Physician Encounter [facility] Date(s): 11/21/22 - 11/22/[address] [id number] Discharge Disposition: A-D/C Home Attending Physician: Gilma Gregory MD Admitting Physician: Naeem Pablo MD Referring Physician: Not on Staff, Referring [...] pulmonary embolus (PE) Confirmed Active Patient is Confucianist Confirmed Active Hypercholesterolemia Confirmed Active Hypertension Confirmed Active Hypothyroidism Confirmed Active Morbid obesity Confirmed Active Obstructive sleep apnea Confirmed Active Pernicious anemia Confirmed Active Severe obesity (BMI 35.0-39.9) with comorbidity Confirmed Active Type II diabetes mellitus Confirmed Active Vitamin D deficiency Confirmed Active Results Radiology Reports * Exam Date Time Procedure Performing Provider Status 11/22/22 12:07 AM US Retroperitoneum Comp Fatimah Lan ; Auth (Verified) Notes: (US Retroperitoneum Comp) Reason For Exam: SIMONE, r/o hydro;Other: RESULT: US Retroperitoneum Comp US Retroperitoneum Comp History: Acute kidney injury. COMPARISON: None. FINDINGS: Right kidney: 10.7 cm in length. No hydronephrosis. Normal parenchymal thickness and mild increase in echotexture. No stones. No suspicious mass. Left kidney: 10.1 cm in length. No hydronephrosis. Normal parenchymal thickness and mild increase echotexture. No stones. No suspicious mass. Urinary bladder: Incompletely distended, but no evidence of stone, mass, wall thickening or debris. IMPRESSION: No evidence of hydroureteronephrosis. I have personally reviewed the images and I agree with this report. WSN: [id number] Ordering Physician: Scar Erazo Dictated By: Kevin Holland MD Dictated Date/Time: 11/22/22 6:44 am Reviewed By: Brennon Guo MD Signed By: Brennon Guo MD Signed Date/Time: 11/22/22 6:49 am Transcribed By: LULU Transcribed Date/Time: 11/22/22 0:01 am * Exam Date Time Procedure Performing Provider Status 11/21/22 11:35 PM Chest 2 Views Frontal and Lat Jen Franz; Jojo (Verified) Notes: (Chest 2 Views Frontal and Lat) Reason For Exam: Cough RESULT: Chest 2 Views Frontal and Lat Chest 2 Views Frontal and Lat Reason: Cough; Clinical Question(s): Pneumonia COMPARISON: 11/03/2022 FINDINGS: LINES AND TUBES: None. LUNGS AND PLEURA: Clear lungs. Normal pulmonary vascularity. No pleural effusion. No pneumothorax. HEART, MEDIASTINUM AND MARGOT: Unchanged. Aorta is calcified. BONES AND SOFT TISSUES: No acute abnormality. IMPRESSION: No acute abnormality. WSN: [id number] Ordering Physician: Scar Erazo Dictated By: Stephan Benz MD Dictated Date/Time: 11/21/22 11:37 p Reviewed By: Stephan Benz MD Signed By: Stephan Benz MD Signed Date/Time: 11/21/22 11:37 pm Transcribed By: LULU Transcribed Date/Time: 11/21/22 11:36 pm Vital Signs Most recent to oldest [Reference Range]: 1 2 3 Height 155 cm (11/22/22 3:51 PM) 155 cm (11/22/22 11:01 AM) 155 cm (11/22/22 7:24 AM) Weight 90 kg (11/22/22 4:20 AM) 90.0 kg (11/21/22 7:23 PM) Oxygen Saturation [94-100 %] 100 % (11/22/22 3:51 PM) 100 % (11/22/22 11:01 AM) 98 % (11/22/22 7:24 AM) Pulse Rate [55-90 bpm] 62 bpm (11/22/22 3:51 PM) 70 bpm (11/22/22 11:01 AM) 70 bpm (11/22/22 7:24 AM) Body Mass Index [18.5-24.99 kg/m2] 37.46 kg/m2 *>HHI* (11/22/22 4:20 AM) 37.46 kg/m2 *>HHI* (11/21/22 7:23 PM) Blood Pressure [90-138/55-84 mm Hg] 132/50mm Hg (11/22/22 3:51 PM) 143/60mm Hg *H* (11/22/22 11:01 AM) 148/66mm Hg *H* (11/22/22 7:24 AM) Respiratory Rate [16-30 br/min] 20 br/min (11/22/22 3:51 PM) 20 br/min (11/22/22 11:01 AM) 20 br/min (11/22/22 7:24 AM) Temperature [96.8-100.4 DegF] 98.4 DegF (11/22/22 3:51 PM) 97.5 DegF (11/22/22 11:01 AM) 97.5 DegF (11/22/22 7:24 AM) Mode of Delivery (Oxygen) Room air (11/22/22 3:51 PM) Room air (11/22/22 11:01 AM) Room air (11/22/22 7:24 AM) Blood pressure sites Arm, right (11/22/22 3:51 PM) Arm, left (11/22/22 11:01 AM) Arm, right (11/22/22 7:24 AM) Temperature Route Oral (11/22/22 3:51 PM) Oral (11/22/22 11:01 AM) Oral (11/22/22 7:24 AM) Dry Weight 90 kg (11/22/22 4:20 AM) 90.0 kg (11/21/22 7:23 PM) Weight Obtained Via Bed scale (11/22/22 4:20 AM) Standing scale (11/21/22 7:23 PM) Dry Weight Obtained Via Standing scale (11/21/22 7:23 PM) Social History Social History Type Response Smoking Status Never smoker entered on: 06/13/15 Sex Admission evaluation note * Yared MONTANEZ, Tania: MODIFY, MODIFY, PERFORM Event Display: Admission Note Authored Date: [id number] Patient: ??LILO JACKSON ? Age:??72 Years?Sex:??Female?:??1950?? History of Present Illness 72-year-old female with past medical history of asthma, depression, hyperlipidemia, hypertension, hypothyroidism, pernicious anemia, type 2 diabetes, had a DVT was anticoagulated with however developed a small subarachnoid hemorrhage, coming in today after being sent from her PCP for elevated kidney function. ?? According to the patient she went for routine lab work-up to the PCP.?? Her lab work obtained showed a creatinine of 4.1 which prompted her to be sent to the ED for further work-up.?? Apart from thispatient feels completely at her baseline and has no particular complaints.?? She denies any fever, chills, urinary issues, dysuria, difficulty urinating, decreased urination.?? Denied poor p.o. intake, nausea, vomiting, diarrhea.?? Denies chest pain, palpitations.?? Denies any new medications, denies NSAID use. ?? On presentation to ED patient is afebrile, hemodynamically stable.?? Lab work-up showing normal white count, stable anemia, normal INR, largely normal electrolytes.?? Creatinine of 4.3 which is increased from 4.1 previously.?? Her last known creatinine was in 2016 which was 1.0. ?? Looking at her urogynecology notes it appears the patient has issues with urinary frequency, urgency.?? She has mixed urinary incontinence, occasional UTIs for which she is on Myrbetriq and behavioral strategies. Review of Systems Full review of systems conducted, negative unless mentioned in the HPI Objective Vital Signs?? Temperature: 98.1 DegF (11/21/22 19:23:00) Temperature Route: Oral (11/21/22 19:23:00) Pulse Rate: 58 bpm (11/22/22 01:14:00) Respiratory Rate: 16 br/min (11/22/22 01:14:00) Systolic Blood Pressure: 137 mm Hg (11/22/22 01:14:00) Diastolic Blood Pressure: 78 mm Hg (11/22/22 01:14:00) Blood pressure sites: Arm, right (11/22/22 01:14:00) Mean Arterial Pressure: 94 mm Hg (11/21/22 19:23:00) Pulse Pressure: 59 mm Hg (11/22/22 01:14:00) Oxygen Saturation: 98 % (11/22/22:14:00) Mode of Delivery (Oxygen): Room air (11/22/22 01:14:00) Early Warning Score: 0 (11/22/22 01:28:36) Early Warning Score: 0 (11/22/22 01:28:36) ? Physical Exam ?? General Appearance: no acute distress Eyes: ROSANNA. No scleral icterus. ENT:?? MM moist. Cardiovascular: RRR S1 and S2 heard with no M/R/G. Respiratory: Clear to auscultation, no wheeze or crackles GI: Soft. Nontender and nondistended. Normal bowel sounds present. no guarding, rigidity MSK:?? No edema or erythema in the lower extremities. Skin: No rashes seen on chest, abdomen. Neuro:?? No slurred speech. Moving upper and lower extremities independently Psych: oriented x3. Lines: Peripheral IV in place. Assessment/Plan ??72-year-old female with past medical history of asthma, depression, hyperlipidemia, hypertension,hypothyroidism, pernicious anemia, type 2 diabetes, had a DVT was anticoagulated with however developed a small subarachnoid hemorrhage, coming in today after being sent from her PCP for elevated kidney function. ?? Acute kidney injury Sent from her PCP after??routine labs were drawn which showed a creatinine of 4.1. ??Last known creatinine??in 2016 was 1.0 Has some component of baseline CKD with creatinine around 1.0-1.1?? Patient denies any associated??complaints??including??difficulty urinating, fever, chills, poor p.o. intake,??leg swelling, fever, chills,??new medications, NSAID use ?? Repeat labs in the ED showed a creatinine of 4.3.?? No??pertinent??findings on physical exam,??patient is mildly dry on exam, will trial IV fluids and??recheck creatinine Otherwise unclear cause for patient's??elevated kidney function.?? Hard to say whether its been slowly rising over the??last few years versus acute increase. ?? Plan -UA ordered -Renal consult placed -Renal ultrasound ordered -Bladder scans every 6 hours -Continue LR at 100 cc an hour -Monitor BMP daily -Renally dose medications -Avoid nephrotoxic medications -Monitor urine output ? Chronic/stable medical condition Depression: Continue citalopram Hyperlipidemia: Continue atorvastatin Type 2 diabetes: Hold home glipizide, Trulicity, insulin sliding scale and POC glucose checks. Hypothyroidism: Continue home levothyroxine Mixed urinary incontinence, Myrbetriq nonformulary ?? Quality measures Code:??Full Diet:??Renal DVT prophylaxis:??Ambulating,??hold chemoprophylaxis ? [place] [id number] Histories Allergies Allergies ?(Active and Proposed Allergies Only) Imitrex? (Severity: Unknown severity, Onset: Unknown) Phenergan? (Severity: Unknown severity, Onset: Unknown) Inderal? (Severity: Unknown severity, Onset: Unknown) amitriptyline? (Severity: Unknown severity, Onset: Unknown) metoclopramide? (Severity: Unknown severity, Onset: Unknown) acyclovir? (Severity: Unknown severity, Onset: Unknown) isometheptene mucate? (Severity: Unknown severity, Onset: Unknown) dichloralphenazone? (Severity: Unknown severity, Onset: Unknown) ergotamine? (Severity: Unknown severity, Onset: Unknown) Compazine? (Severity: Unknown severity, Onset: Unknown) morphine? (Severity: Unknown severity, Onset: Unknown) Midodrine Hydrochloride? (Severity: Unknown severity, Onset: Unknown) ? Past Medical History/Problem List Active Problems??(16) Asthma Depression Glaucoma - narrow angle s/p bilateral iridotomies History of pulmonary embolus (PE) History of subarachnoid hemorrhage - while anticoagulated for PE Hypercholesterolemia Hypertension Hypothyroidism Morbid obesity Obstructive sleep apnea Patient is Confucianist Pernicious anemia Severe obesity (BMI 35.0-39.9) with comorbidity Type II diabetes mellitus Vitamin D deficiency Vulvar atrophy ? Past Surgical History Repair of meniscus - right knee Tubal ligation Lap Cholecystectomy Bladder lift, possible Rios urethropexy 1980s Bilateral laser iridotomy ? Social History Alcohol Details:??Use: Never. Employment/School Details:??Status: Unemployed. Exercise Details:??Self assessment: Fair condition. ??Regular exercise: Yes. Home/Environment Details:??Living situation: Home/Independent. ??Lives with: [facility]. Nutrition/Health Details:??Diet: Low sodium. Sexual Details:??Sexually involved in last 6 months: No. Substance Abuse Details:??Use: Never. Tobacco Details:??Never smoker ? Family History Mother: Blood clot; Cancer of uterus ?11-FEB-2015 22:28:03<$>; Diabetesmellitus type II; Endometriosis; Hyperlipidemia; Hypertension; Osteoporosis Father: Diabetes mellitus type II; Heart attack; Hyperlipidemia; Hypertension Brother: Diabetes mellitus type II; Hyperlipidemia; Hypertension Sister: Blood clot; Cancer of breast; Cancer of uterus ?11-FEB-2015 22:28:03&l t;$>; Diabetes mellitus type II; Endometriosis; Heart attack; Hyperlipidemia; Hypertension; Osteoporosis; Stroke ? Medications Home Medications Atorvastatin (atorvastatin 10 mg oral tablet)?1?tab(s)?10?Milligram?By Mouth?Daily Cetirizine (cetirizine 10 mg oral tablet)?1?tab(s)?10?Milligram?By Mouth?Daily Cholecalciferol (Vitamin D3 2000 intl units oral tablet)?TAKE 1 TABLET BY MOUTH ONCE DAILY Citalopram (citalopram 20 mg oral tablet)?TAKE 1 & 1/2 (ONE & ONE-HALF) TABLETS BY MOUTHONCE DAILY Cyanocobalamin (Vitamin B-12 1000 mcg oral tablet)?1,000?Microgram?1?tablet?By Mouth?Daily dulaglutide (Trulicity Pen 1.5 mg/0.5 mL subcutaneous solution)?0.5?Milliliter?1.5?Milligram?Subcutaneous Injection?Every week GlipiZIDE (glipiZIDE 5 mg oral tablet)?5?Milligram?1?tablet?By Mouth?Daily Levothyroxine (levothyroxine 0.112 mg oral tablet)?1?tab(s)?112?Microgram?By Mouth?Daily mirabegron (Myrbetriq 50 mg oral tablet, extended release)?1?tab(s)?50?Milligram?By Mouth?Daily?do not crush or chew Miscellaneous Rx (ASPIRIN LOW EC 81MG TAB)?TAKE 1 TABLET BY MOUTH ONCE DAILY Miscellaneous Rx (VITAMIN C 500MG ? CHW)?CHEW AND SWALLOW 1 TABLET ONCE DAILY ? Results Recent Labs BLOOD COUNT & DIFF WBC 5.8 k/mm3 ()?? 11/21/2022 19:03 RBC 3.50 m/mm3 (Low)?? 11/21/2022 19:03 Hgb 10.2 Gm/dL (Low)?? 11/21/2022 19:03 Hct 33.0 % (Low)?? 11/21/2022 19:03 MCV 94.3 femtoliters ()?? 11/21/2022 19:03 MCH 29.1 pg ()?? 11/21/2022 19:03 MCHC 30.9 g/dL (Low)?? 11/21/2022 19:03 Platelet Count 197 k/mm3 ()?? 11/21/2022 19:03 RDW-SD 46.2 femtoliters ()?? 11/21/2022 19:03 MPV 11.2 femtoliters ()?? 11/21/2022 19:03 Nucleated RBC (Automated) 0.0 #/100 WBC'S ()?? 11/21/2022 19:03 Abs. NRBC 0.0 k/mm3 ()?? 11/21/2022 19:03 Abs. Neut 3.5 k/mm3 ()?? 11/21/2022 19:03 Abs. Lymph 1.7 k/mm3 ()?? 11/21/2022 19:03 Abs. [place] 0.4 k/mm3 ()?? 11/21/2022 19:03 Abs. Eo 0.1 k/mm3 ()?? 11/21/2022 19:03 Abs. Baso 0.0 k/mm3 ()?? 11/21/2022 19:03 Neut % 59.7 % ()?? 11/21/2022 19:03 Lymph % 29.8 % ()?? 11/21/2022 19:03 [place] % 7.2 % ()?? 11/21/2022 19:03 Eos % 2.4 % ()?? 11/21/2022 19:03 Baso % 0.7 % ()?? 11/21/2022 19:03 Imm Gran 0.2 % ()?? 11/21/2022 19:03 Abs. Imm Gran 0.0 k/mm3 ()?? 11/21/2022 19:03 ?? CHEM GENERAL Sodium 142 mmol/L ()?? 11/22/2022 00:35 Potassium 4.4 mmol/L ()?? 11/22/2022 00:35 Chloride 107 mmol/L ()?? 11/22/2022 00:35 Bicarbonate Level 26 mmol/L ()?? 11/22/2022 00:35 Anion Gap 9 ()?? 11/22/2022 00:35 Glucose Level 77 mg/dL ()?? 11/21/2022 19:03 BUN 44 mg/dL (High)?? 11/22/2022 00:35 Creatinine-Blood 4.3 mg/dL (High)?? 11/22/2022 00:35 Estimated GFR Creatinine 11 ML/MIN/1.73 M2 ()?? 11/22/2022 00:35 Calcium 9.1 mg/dL ()?? 11/21/2022 19:03 Protein, Total 7.6 Gm/dL ()?? 11/21/2022 19:03 Albumin 3.9 Gm/dL ()?? 11/21/2022 19:03 AG Ratio 1.1 ()?? 11/21/2022 19:03 Alkaline Phosphatase 106 units/L (High)?? 11/21/2022 19:03 AST (SGOT) 17 units/L ()?? 11/21/2022 19:03 ALT (SGPT) 9 units/L ()?? 11/21/2022 19:03 Bilirubin, Total 0.2 mg/dL ()?? 11/21/2022 19:03 ?? COAG INR 1.1 ()?? 11/21/2022 19:03 Protime (PT) 11.5 seconds (High)?? 11/21/2022 19:03 ?? VIROLOGY COVID-19 by RT-PCR NEGATIVE ()?? 11/21/2022 00:25 ? Hospital Progress note * Angelica Wylie RN: PERFORM, MODIFY, MODIFY, MODIFY, MODIFY, SIGN, VERIFY Event Display: Progress Note Hospital Authored Date: Patient: LILO JACKSON Age: 72 years Sex: Female : 1950 Associated Diagnoses: None Author: Angelica Wylie RN Findings Problem Related to Alteration in Genitourinary : Alteration in Genitourinary Function/new 11/22/2022 5:00 EST Alteration in Status Related to Other: SIMONE Goals & Outcomes, Genitourinary Pt will achieve normal/improved fluid balance, Pt will maintainadequate function appropriate for pt, Pt will maintain normal fluid balance, Pt will resume normal pattern of elimination, Pt will resume/maintain mental status, Pt will state psychosocial implications of renal failure Interventions, Assess/monitor/maintain Genitourinary status, Encourage PO fluid intake as allowed by diet BH Goals/Interventions, Genitourinary Yes Genitourinary, Problem Start 11/22/2022 5:11 Reviewed Plan with, Genitourinary Patient Patient Progression, Genitourinary Plan Initiation Genitourinary, Problem Ongoing Yes . Nursing Data Cardiac Data. : Cardiac Data. 11/22/2022 4:00 EST Cardiovascular Symptoms None Nail Bed Color, Fingers Weiser Skin Temperature Upper Extremities Warm Skin Temperature Lower Extremities Warm Heart Sounds S1, S2 Heart Rhythm Regular Capillary Refill < 3 seconds Dorsalis Pedis Pulse, Left Normal Dorsalis Pedis Pulse, Right Normal Cardiovascular WNL except . Respiratory/Pulmonary Data. 11/22/2022 4:00 EST Respiratory Symptoms None Respiratory effort Unlabored Respiratory Assessment Comment denies sob Cough No cough Respiratory pattern Regular Left Upper Lobe Breath Sounds Clear Right Upper Lobe Breath Sounds Clear Right Middle Lobe Breath Sounds Diminished Left Lower Lobe Breath Sounds Diminished Right Lower Lobe Breath Sounds Diminished Respiratory WNL except . Vital Signs : VITAL SIGNS SECTION 11/22/2022 4:51 EST Early Warning Score 0.00 11/22/2022 4:51 EST Temperature 98.1 DegF Temperature Route Oral Pulse Rate 65 bpm Respiratory Rate 18 br/min Systolic Blood Pressure 133 mm Hg Diastolic Blood Pressure 62 mm Hg Blood pressure sites Arm, right Mean Arterial Pressure 86 mm Hg Pulse Pressure 71 mm Hg Oxygen Saturation 99 % Mode of Delivery (Oxygen) Room air 11/22/2022 4:33 EST Early Warning Score 0.00 11/22/2022 4:20 EST Temperature 98.1 DegF Temperature Route Oral Pulse Rate 64 bpm Respiratory Rate 18 br/min Systolic Blood Pressure 133 mm Hg Diastolic Blood Pressure 62 mm Hg Blood pressure sites Arm, right Mean Arterial Pressure 86 mm Hg Pulse Pressure 71 mm Hg . Evaluation P: per nursing care plan I: r/t nursing care plan E: Assumed care of patient at 0404 this am, pt ambulating with steady gait and one assist to unit bed, denies dizziness, afebrile, VS wnl. Respirations even and unlabored on room air, LS CTA, dim at the bases, denies sob, sats wnl, educated on IS use and able to return demonstration. Pt denies NVD,states voiding without difficulty, denies dysuria. IVFs infusing per order, LR at 100mL/hr. Educated patient on plan of care and call rao use, fall risk precautions in place, call rao within reach,hourly rounding maintained. See CIS for full assessment data and flow sheets, will continue monitoring as needed. . Note * Cherelle Pedraza RN: PERFORM Event Display: Discharge/Transfer Note Hospital Authored Date: [id number] Nursing Discharge Note Entered On: 11/22/2022 17:39 EST Performed On: 11/22/2022 17:38 EST by Cherelle Pedraza RN Nursing Discharge Note 2 Discharge Time : 11/22/2022 17:38 EST Discharge Level of Care at Discharge : Home/Residential/Foster Care Patient Left Unit Via : Wheelchair Patient Accompanied Off Unit with : Responsible adult DC Instructions Provided & Signed by Pt : Yes Patient Understands D/C Instructions : Yes Patient Instructions Discharge Signed : Yes Did Pt have Specialty Bed or Wound Vac : No Cherelle Pedraza RN - 11/22/2022 17:38 EST * Do CAKE KNOCKER, Vi T: PERFORM Event Display: Discharge/Transfer Note Hospital Authored Date: [id number] Patient: ??MANUEL, LILO ? Age:??72 Years?Sex:??Female?:??1950?? Patient Information Discharge Location: [facility] Primary Care Physician: Alex Veras MD Admit Date/Time: 11/21/22 17:40 Discharge Disposition Discharge Disposition: Home: No Services Discharge Diagnosis ?? chronic kidney disease DM _ Discharge Medications Atorvastatin (atorvastatin 10 mg oral tablet)?1?tab(s)?10?Milligram?By Mouth?Daily Cetirizine (cetirizine 10 mg oral tablet)?1?tab(s)?10?Milligram?By Mouth?Daily Cholecalciferol (Vitamin D3 2000 intl units oral tablet)?TAKE 1 TABLET BY MOUTH ONCE DAILY Citalopram (citalopram 20 mg oral tablet)?TAKE 1 & 1/2 (ONE & ONE-HALF) TABLETS BY MOUTHONCE DAILY Cyanocobalamin (Vitamin B-12 1000 mcg oral tablet)?1,000?Microgram?1?tablet?By Mouth?Daily dulaglutide (Trulicity Pen 1.5 mg/0.5 mL subcutaneous solution)?0.5?Milliliter?1.5?Milligram?Subcutaneous Injection?Every week GlipiZIDE (glipiZIDE 5 mg oral tablet)?5?Milligram?1?tablet?By Mouth?Daily Levothyroxine (levothyroxine 0.112 mg oral tablet)?1?tab(s)?112?Microgram?By Mouth?Daily Miscellaneous Rx (ASPIRIN LOW EC 81MG TAB)?TAKE 1 TABLET BY MOUTH ONCE DAILY Miscellaneous Rx (VITAMIN C 500MG ? CHW)?CHEW AND SWALLOW 1 TABLET ONCE DAILY ? Medications Started none Medications Discontinued Myrbetriq Doses Changed none Allergies Allergies ?(Active and Proposed Allergies Only) Imitrex? (Severity: Unknown severity, Onset: Unknown) Phenergan? (Severity: Unknown severity, Onset: Unknown) Inderal? (Severity: Unknown severity, Onset: Unknown) amitriptyline? (Severity: Unknown severity, Onset: Unknown) metoclopramide? (Severity: Unknown severity, Onset: Unknown) acyclovir? (Severity: Unknown severity, Onset: Unknown) isometheptene mucate? (Severity: Unknown severity, Onset: Unknown) dichloralphenazone? (Severity: Unknown severity, Onset: Unknown) ergotamine? (Severity: Unknown severity, Onset: Unknown) Compazine? (Severity: Unknown severity, Onset: Unknown) morphine? (Severity: Unknown severity, Onset: Unknown) Midodrine Hydrochloride? (Severity: Unknown severity, Onset: Unknown) ? PCP Follow-Up/Heads-Up chronic kidney disease??F/u Serologies ordered: SPEP, immunofixation, light chains, complements C3/C4, and DANILO, Discontinue Myrbetriq as it is not recommend it patients with GFR < 15.??Avoid nephrotoxins, NSAIDS, f/u with PCP and renal outpt Objective Assessment and Plan ??72-year-old female with past medical history of asthma, depression, hyperlipidemia, hypertension,hypothyroidism, pernicious anemia, type 2 diabetes, had a DVT was anticoagulated with however developed a small subarachnoid hemorrhage, coming in today after being sent from her PCP for elevated kidney function. Renal consulted labs drawn 10 days ago with creatinine 5.9mg/dL in outpatient records.Prior to that, her most recent creatinine was from 2 years ago and was 1.4mg/dL.??This is most likely CKD that has progressed over the past couple years rather than SIMONE. However, with recent creatinine 5.9mg/dL only 10 days ago, she could have had an SIMONE and this could be currently recovering or patient could have established a new baseline. ?? chronic kidney disease Sent from her PCP after??routine labs were drawn which showed a creatinine of 4.1. ??Last known creatinine??in 2016 was 1.0 Has some component of baseline CKD with creatinine around 1.0-1.1?? Patient denies any associated??complaints??including??difficulty urinating, fever, chills, poor p.o. intake,??leg swelling, fever, chills,??new medications, NSAID use Repeat labs in the ED showed a creatinine of 4.3.?? No??pertinent??findings on physical exam,??patient is mildly dry on exam, will trial IV fluids and??recheck creatinine Otherwise unclear cause for patient's??elevated kidney function.?? Hard to say whether its been slowly rising over the??last few years versus acute increase. -UA unremarkable -Renal consulted labs drawn 10 days ago with creatinine 5.9mg/dL in outpatient records. Prior to that, her most recent creatinine was from 2 years ago and was 1.4mg/dL.??This is most likely CKD that has progressed over the past couple years rather than SIMONE. However, with recent creatinine 5.9mg/dL only 10 days ago, she could have had an SIMONE and this could be currently recovering or patient could have established a new baseline. f/u Serologies ordered: SPEP, immunofixation, light chains, complements C3/C4, and DANILO - Discontinue Myrbetriq as it is not recommend it patients with GFR < 15. - Avoid nephrotoxins, NSAIDS -Renal ultrasound neg -Bladder scans no retention f/u with PCP and renal outpt ?? Chronic/stable medical condition Depression: Continue citalopram Hyperlipidemia: Continue atorvastatin Type 2 diabetes: resume home glipizide, Trulicity, Hypothyroidism: Continue home levothyroxine Mixed urinary incontinence, dc Myrbetriq? . Physical Exam Constitutional: Alert, in no acute distress. Head: Normocephalic. Respiratory:??Clear to auscultation. No wheezing or rhonchi.??No use of accessory muscles.?? Cardiovascular:??S1 S2 regular. No murmurs, rubs or gallops. Gastrointestinal:??Abdomen soft, non-tender, non-distended. Normal bowel sounds.?? Extremities: No lower extremity pitting edema.?? Neurologic:??No focal neurological deficits. Moves all extremities spontaneously.?? Skin:??No rash.?? Psychiatric: Normal mood and affect. Consultants renal Pending Results DANILO Screen ordered on 11/22/2022 C3 Complement ordered on 11/22/2022 C4 Complement ordered on 11/22/2022 [place] Star and Lambda Light Chains ordered on 11/22/2022 Immunofixation Serum ordered on 11/22/2022 Protein Electrophoresis ordered on 11/22/2022 Patient Education Titles Chronic Kidney Disease (CKD)?? Follow-Up Appointments Added Follow Up ?Time Frame ?Comments Jimi Barnes?2 to 3 weeks?please call for appt in 2-3 weeks Alex Name?2 to 5 weeks?please call for appt in 2-5 weeks Patient Instructions Discontinue Myrbetriq?? Avoid nephrotoxins, NSAIDS, f/u with PCP and renal outpt ?? if patient develops new symptoms, include severe chest pain, shortness of breath, abdominal pain, high fevers, nausea and vomiting unable to tolerate by mouth, please come back to ED Post Discharge Care Diet: Diabetic Diet Activity: Ambulate with assistance ??3 times a day ??unless otherwise specified Code Status: ?? Full Resuscitation Prognosis: Good Discharge ?11/22/22 14:32:00 EST Discharge Prescriptions ?None, ??after labs drawn, ??11/22/22 14:32:00 EST Home Health Face to Face ^HomeHealthFTF Results Discharge Labs BLOOD COUNT & DIFF WBC 4.4 k/mm3 ()?? 11/22/2022 06:53 RBC 3.33 m/mm3 (Low)?? 11/22/2022 06:53 Hgb 9.7 Gm/dL (Low)?? 11/22/2022 06:53 Hct 32.0 % (Low)?? 11/22/2022 06:53 MCV 96.1 femtoliters ()?? 11/22/2022 06:53 MCH 29.1 pg ()?? 11/22/2022 06:53 MCHC 30.3 g/dL (Low)?? 11/22/2022 06:53 Platelet Count 151 k/mm3 ()?? 11/22/2022 06:53 RDW-SD 47.9 femtoliters (High)?? 11/22/2022 06:53 MPV 11.3 femtoliters ()?? 11/22/2022 06:53 Nucleated RBC (Automated) 0.0 #/100 WBC'S ()?? 11/22/2022 06:53 Abs. NRBC 0.0 k/mm3 ()?? 11/22/2022 06:53 Abs. Neut 3.5 k/mm3 ()?? 11/21/2022 19:03 Abs. Lymph 1.7 k/mm3 ()?? 11/21/2022 19:03 Abs. [place] 0.4 k/mm3 ()?? 11/21/2022 19:03 Abs. Eo 0.1 k/mm3 ()?? 11/21/2022 19:03 Abs. Baso 0.0 k/mm3 ()?? 11/21/2022 19:03 Neut % 59.7 % ()?? 11/21/2022 19:03 Lymph % 29.8 % ()?? 11/21/2022 19:03 [place] % 7.2 % ()?? 11/21/2022 19:03 Eos % 2.4 % ()?? 11/21/2022 19:03 Baso % 0.7 % ()?? 11/21/2022 19:03 Imm Gran 0.2 % ()?? 11/21/2022 19:03 Abs. Imm Gran 0.0 k/mm3 ()?? 11/21/2022 19:03 ?? CHEM GENERAL Sodium 140 mmol/L ()?? 11/22/2022 06:53 Potassium 4.3 mmol/L ()?? 11/22/2022 06:53 Chloride 107 mmol/L ()?? 11/22/2022 06:53 Bicarbonate Level 24 mmol/L ()?? 11/22/2022 06:53 Anion Gap 9 ()?? 11/22/2022 06:53 Glucose Level 76 mg/dL ()?? 11/22/2022 06:53 Glucose, POC 127 mg/dL (High)?? 11/22/2022 11:59 BUN 44 mg/dL (High)?? 11/22/2022 06:53 Creatinine-Blood 4.3 mg/dL (High)?? 11/22/2022 06:53 Estimated GFR Creatinine 11 ML/MIN/1.73 M2 ()?? 11/22/2022 06:53 Calcium 9.0 mg/dL ()?? 11/22/2022 06:53 Protein, Total 7.6 Gm/dL ()?? 11/21/2022 19:03 Albumin 3.9 Gm/dL ()?? 11/21/2022 19:03 AG Ratio 1.1 ()?? 11/21/2022 19:03 Alkaline Phosphatase 106 units/L (High)?? 11/21/2022 19:03 AST (SGOT) 17 units/L ()?? 11/21/2022 19:03 ALT (SGPT) 9 units/L ()?? 11/21/2022 19:03 Bilirubin, Total 0.2 mg/dL ()?? 11/21/2022 19:03 ?? COAG INR 1.1 ()?? 11/21/2022 19:03 Protime (PT) 11.5 seconds (High)?? 11/21/2022 19:03 ?? UA/URINALYSIS Appear/Color, Urine COLORLESS ()?? 11/22/2022 10:00 Specific [place], Urine 1.009 ()?? 11/22/2022 10:00 pH, Urine 6.5 ()?? 11/22/2022 10:00 Albumin, Urine 1+ (Abnormal)?? 11/22/2022 10:00 Glucose, Urine NEGATIVE ()?? 11/22/2022 10:00 Ketones, Urine NEGATIVE ()?? 11/22/2022 10:00 Bilirubin, Urine NEGATIVE ()?? 11/22/2022 10:00 Hemoglobin, Urine NEGATIVE ()?? 11/22/2022 10:00 Nitrite, Urine NEGATIVE ()?? 11/22/2022 10:00 Leukocyte, Urine 1+ (Abnormal)?? 11/22/2022 10:00 Urobilinogen NORMAL mg/dL ()?? 11/22/2022 10:00 WBC's, Urine 9 /HPF (High)?? 11/22/2022 10:00 RBC's, Urine 1 /HPF ()?? 11/22/2022 10:00 Squamous Epith 1 /HPF ()?? 11/22/2022 10:00 ?? URINE OTHER Creatinine, Urine Random 69.7 mg/dL ()?? 11/22/2022 10:00 Sodium, Urine Random 105 mmol/L ()?? 11/22/2022 10:00 Chloride, Urine Random 85 mmol/L ()?? 11/22/2022 10:00 Urea Nitrogen, Urine Random 336.6 mg/dL ()?? 11/22/2022 10:00 Protein, Total Urine Random 48 mg/dL ()?? 11/22/2022 10:00 TP/Cr Ratio 0.68 (High)?? 11/22/2022 10:00 Creatinine, Urine 69.7 mg/dL ()?? 11/22/2022 10:00 Malb/Creat Ratio 407.3 mg/Gm (High)?? 11/22/2022 10:00 Urine Creat For Micro Alb 69.7 mg/dL ()?? 11/22/2022 10:00 Micro-Albumin 283.9 mg/L (High)?? 11/22/2022 10:00 ?? VIROLOGY COVID-19 by RT-PCR NEGATIVE ()?? 11/21/2022 00:25 ? 35??minutes spent on discharge * Cherelle Pedraza RN: PERFORM Event Display: Patient Education/Instruction Authored Date: [id number] Inpatient Adult Discharge Instructions [address] [address] Name: LILO JACKSON : 1950 Visit: 11/21/2022 17:40:00 Current Date: 11/22/2022 17:08 Account: [id number] Inpatient Adult Discharge Instructions We would like to thank you for allowing us to assist you with your healthcare needs. The following includes patient education materials and information regarding your injury/illness. Our entire staffstrives to provide an excellent experience for our patients and their families. PLEASE ENSURE YOU FOLLOW-UP PER THE INSTRUCTIONS BELOW! ?? YOUR OPINION IS IMPORTANT TO US! Please complete the survey you may receive by mail or email. Your feedback will be used to make improvements to the healthcare experiences of our patients and their families. Surveys are administered by [employer] ?? If further treatment with your primary care physician or another doctor is recommended, it is important for you to keep the appointment. Call your primary care physician or return to the Emergency Department immediately if your condition worsens, fails to improve, or new symptoms develop. If you need to find a doctor, you can call [facility] for a referral at [phone] or toll free at [phone] or log in to [email or web address].. ?? You can view and manage your care through the patient portal or by using a health care waldemar of your choosing. [employer] is a website that allows you to securely view your medical information including your hospital discharge summary, office visit summaries, medications and follow-up visits. You can also request appointments, renew medications, and request access to your medical information using a health care waldemar of your choosing, or just ask a question. You can enroll at [email or web address] or register during your next office visit. You have been discharged from [facility], Patient Care Unit: D3B. If you have any questions regarding these instructions after you leave, please call us and we will be happy to assist you. [facility] Your Care Team Attending Physician Bri MONTANEZ, Gilma Consulting Providers Shahram MONTANEZ, Rena Discharging Providers Do CAKE KNOCKER, Vi T Reason for Admission General medical Tests Performed Below is a partial list of the tests performed during your hospitalization. You may have had other tests and procedures not included in this list. Please discuss all test results with your provider. Basic Metabolic Panel BUN C3 Complement C4 Complement CBC CBC w/ Differential Comprehensive Metabolic Panel COVID-19 (Novel Coronavirus), Rapid PCR Creatinine Electrolytes GLUCOSE POC Immunofixation Serum?-- Results Pending -- INR UA UREA NITROGEN, URINE MG/DL Urine Chloride Urine Creatinine Urine Microalbumin Urine Protein/Creatinine Ratio Urine Sodium CXR W/ Frontal and Lat US Renal Comp ? You will be contacted within 72 hours with your results. Primary Care Provider Name Alex MONTANEZ Advance Directive Health Care Proxy on File Yes - Health Care Proxy Discharge Vitals Temperature: 98.4 DegF Height: 155 cm Pulse Rate: 62 bpm Weight: 90 kg Respiratory Rate: 20 br/min Body Mass Index:??37.46 kg/m2??Critical Systolic Blood Pressure: 132 mm Hg Body surface area: 1.97 Diastolic Blood Pressure:??50 mm Hg??Low ?? Oxygen Saturation: 100 % ?? Studies Pending All tests and labs ordered during this hospital stay have been completed unless listed below. Please discuss all pending results with your provider listed above in these instructions. ?? DANILO Screen Free [place] and Lambda Light Chains Immunofixation Serum Protein Electrophoresis (SPEP) What to do next Instructions From Your Doctor Discontinue Myrbetriq?? Avoid nephrotoxins, NSAIDS, f/u with PCP and renal outpt ?? if patient develops new symptoms, include severe chest pain, shortness of breath, abdominal pain, high fevers, nausea and vomiting unable to tolerate by mouth, please come back to ED Discharge Orders Diet:??Diabetic Diet Activity:??Ambulate with assistance 3 times a day unless otherwise specified Code Status:?? Full Resuscitation Prognosis:??Good You Need to Schedule the Following Appointments Follow Up with??Jimi Barnes When??Within 2 to 3 weeks Why: please call for appt in 2-3 weeks Where: [address] [place] [address] [facility] (1) Follow Up with??Alex Veras When??Within 2 to 5 weeks Why: please call for appt in 2-5 weeks Where: [address] [place] [id number] [employer] (1) Discharge Medications LILO JACKSON :1950 Visit Date:11/21/2022 Medications: Please continue your medications until treatment is completed or stopped by your provider. Medications not listed below should be discontinued. Discuss any questions related to medications with your provider. What How Much When Instructions Next Dose Changed Atorvastatin (atorvastatin 10 mg oral tablet) 1 tab(s) Oral Daily 11/23/22 - AM Changed Citalopram (citalopram 20 mg oral tablet) TAKE 1 & 1/ 2 (ONE & ONE-HALF) TABLETS BY MOUTH ONCE DAILY ?? 11/23/22 - AM Changed Cyanocobalamin (Vitamin B-12 1000 mcg oral tablet) 1 tab(s) Oral Daily 11/23/22 - AM Changed Ferrous Sulfate (ferrous sulfate 324 mg (65 mg elemental iron) oral delayed release tablet) 11/23/22 - AM Changed GlipiZIDE (glipiZIDE 5 mg oral tablet) 1 tab(s) Oral Daily 11/23/22 - AM Changed Levothyroxine (levothyroxine 0.112 mg oral tablet) 1 tab(s) Oral Daily 11/23/22 - AM Changed Miscellaneous Rx (ASPIRIN LOW EC 81MG TAB) TAKE 1 TABLET BY MOUTH ONCE DAILY ?? 11/23/22 - AM Changed Miscellaneous Rx (VITAMIN C 500MG CHW) CHEW AND SWALLOW 1 TABLET ONCE DAILY ?? Unchanged Cetirizine (cetirizine 10 mg oral tablet) 1 tab(s) Oral Daily 11/23/22 - AM Unchanged Cholecalciferol (Vitamin D3 2000 intl units oral tablet) TAKE 1 TABLET BY MOUTH ONCE DAILY ?? 11/23/22 - AM Unchanged dulaglutide (Trulicity Pen 1.5 mg/ 0.5 mL subcutaneous solution) 0.5 Milliliter Subcutaneous Injection Every week RESUME HOME SCHEDULE ?? What How Much When Comments Stop Taking Ascorbic Acid (Vitamin C 500 mg oral tablet) 1 tab(s) Oral Daily Stop Taking Aspirin (aspirin 81 mg oral tablet) 1 tab(s) Oral Daily Stop Taking Chlorthalidone Oral Daily Stop Taking Durable Medical Equipment (BiPAP Machine) See instructions ?? Stop Taking Durable Medical Equipment (Freestyle Lite Lancets) Stop Taking Durable Medical Equipment (Freestyle Lite Test Strips) Stop Taking Ergocalciferol (Vitamin D 89727 iu oral capsule) 50,000 International Unit Oral Every week Stop Taking Estradiol Topical (Estrace Vaginal Cream 0.1 mg/ g) 1 gram Vaginally Daily at Bedtime Apply daily at bedtime for 2 weeks and then 2 times per week ?? Stop Taking Fluticasone (Flovent 110 mcg Inhaler HFA) Stop Taking Latanoprost Ophthalmic 1 Drops Both eyes Daily at Bedtime Stop Taking Lisinopril 10 Milligram Oral Daily Stop Taking Metformin 500 Milligram Oral Stop Taking mirabegron (mirabegron 50 mg oral tablet, extended release) 1 tab(s) Oral Daily do not crush or chew ?? Stop Taking mirabegron (Myrbetriq 50 mg oral tablet, extended release) 1 tab(s) Oral Daily do not crush or chew ?? Stop Taking Ondansetron (ondansetron 4 mg oral tablet) 1 tab(s) Oral As needed for Nausea & Vomiting Stop Taking Oxycodone (oxyCODONE 5 mg oral tablet) 5 Milligram Oral Every 6 hours as needed for Pain , Mild Stop Taking sitagliptin (Januvia 25 mg oral tablet) 1 tab(s) Oral Daily Test Results Below is a partial list of the most recent Laboratory test results done prior to this discharge. You may have had other tests and procedures not included in this list. Please discuss all test resultswith your provider. Basic Metabolic Panel (11/22/2022) ???Sodium - 140 mmol/L???Potassium - 4.3 mmol/L???Chloride - 107 mmol/L???Bicarbonate Level - 24 mmol/L???Anion Gap - 9???Glucose Level - 76 mg/dL???BUN - 44 mg/dL???Creatinine-Blood - 4.3 mg/dL???Estimated GFR Creatinine - 11 ML/MIN/1.73 M2???Calcium - 9.0 mg/dL BUN (11/22/2022) ???BUN - 44 mg/dL C3 Complement (11/22/2022) ???Complement C3 - 112 mg/dL C4 Complement (11/22/2022) ???Complement C4 - 29 mg/dL CBC (11/22/2022) ???WBC - 4.4 k/mm3???RBC - 3.33 m/mm3???Hgb - 9.7 Gm/dL???Hct - 32.0 %???MCV - 96.1 femtoliters???MCH - 29.1 pg???MCHC - 30.3 g/dL???Platelet Count - 151 k/mm3???RDW-SD - 47.9 femtoliters???MPV - 11.3 femtoliters???Nucleated RBC (Automated) - 0.0 #/100 WBC'S???Abs. NRBC - 0.0 k/mm3 CBC w/ Differential (11/21/2022) ???WBC - 5.8 k/mm3???RBC - 3.50 m/mm3???Hgb - 10.2 Gm/dL???Hct - 33.0 %???MCV - 94.3 femtoliters???MCH - 29.1 pg???MCHC - 30.9 g/dL???Platelet Count - 197 k/mm3???RDW-SD - 46.2 femtoliters???MPV - 11.2 femtoliters???Nucleated RBC (Automated) - 0.0 #/100 WBC'S???Abs. NRBC - 0.0 k/mm3???Abs. Neut - 3.5 k/mm3???Abs. Lymph - 1.7 k/mm3???Abs. [place] - 0.4 k/mm3???Abs. Eo - 0.1 k/mm3???Abs. Baso - 0.0 k/mm3???Neut % - 59.7 %???Lymph % - 29.8 %???[place] % - 7.2 %???Eos % - 2.4 %???Baso % - 0.7 %???Imm Gran - 0.2 %???Abs. Imm Gran - 0.0 k/mm3 Comprehensive Metabolic Panel (11/21/2022) ???Sodium - 141 mmol/L???Potassium - 4.6 mmol/L???Chloride - 106 mmol/L???Bicarbonate Level - 26 mmol/L???Anion Gap - 9???Glucose Level - 77 mg/dL???BUN - 43 mg/dL???Creatinine-Blood - 4.1 mg/dL???Estimated GFR Creatinine - 11 ML/MIN/1.73 M2???Calcium - 9.1 mg/dL???Protein, Total - 7.6 Gm/dL???Albumin - 3.9 Gm/dL???AG Ratio - 1.1???Alkaline Phosphatase - 106 units/L???AST (SGOT) - 17 units/L???ALT (SGPT) - 9 units/L???Bilirubin, Total - 0.2 mg/dL COVID-19 (Novel Coronavirus), Rapid PCR (11/21/2022) ???COVID-19 by RT-PCR - NEGATIVE Creatinine (11/22/2022) ???Creatinine-Blood - 4.3 mg/dL???Estimated GFR Creatinine - 11 ML/MIN/1.73 M2 Electrolytes (11/22/2022) ???Sodium - 142 mmol/L???Potassium - 4.4 mmol/L???Chloride - 107 mmol/L???Bicarbonate Level - 26 mmol/L???Anion Gap - 9 GLUCOSE POC (11/22/2022) ???Glucose, POC - 127 mg/dL INR (11/21/2022) ???INR - 1.1???Protime (PT) - 11.5 seconds UA (11/22/2022) ???Appear/Color, Urine - COLORLESS???Specific [place], Urine - 1.009???pH, Urine - 6.5???Albumin, Urine - 1+???Glucose, Urine - NEGATIVE???Ketones, Urine - NEGATIVE???Bilirubin, Urine - NEGATIVE???Hemoglobin, Urine - NEGATIVE???Nitrite, Urine - NEGATIVE???Leukocyte, Urine - 1+???Urobilinogen - NORMAL???WBC's, Urine - 9 /HPF???RBC's, Urine - 1 /HPF???Squamous Epith - 1 /HPF UREA NITROGEN, URINE MG/DL (11/22/2022) ???Urea Nitrogen, Urine Random - 336.6 mg/dL Urine Chloride (11/22/2022) ???Chloride, Urine Random - 85 mmol/L Urine Creatinine (11/22/2022) ???Creatinine, Urine Random - 69.7 mg/dL Urine Microalbumin (11/22/2022) ???Malb/Creat Ratio - 407.3 mg/Gm???Urine Creat For Micro Alb - 69.7 mg/dL???Micro-Albumin - 283.9 mg/L Urine Protein/Creatinine Ratio (11/22/2022) ???Protein, Total Urine Random - 48 mg/dL???TP/Cr Ratio - 0.68???Creatinine, Urine - 69.7 mg/dL Urine Sodium (11/22/2022) ???Sodium, Urine Random - 105 mmol/L Allergies (NKA means No Known Allergies) Compazine Imitrex Inderal Midodrine Hydrochloride Phenergan acyclovir amitriptyline dichloralphenazone ergotamine isometheptene mucate metoclopramide morphine Problems Active Problems??(16) Asthma?? Depression?? 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 History of pulmonary embolus (PE)?? History of subarachnoid hemorrhage - while anticoagulated for PE?? Hypercholesterolemia?? Hypertension?? Hypothyroidism?? Morbid obesity?? Obstructive sleep apnea?? Patient is Confucianist?? Pernicious anemia?? Severe obesity (BMI 35.0-39.9) with comorbidity?? Type II diabetes mellitus?? Vitamin D deficiency?? Vulvar atrophy?? Education Materials Below is the list of Educational Leaflet Providered with your Discharge Instructions. Chronic Kidney Disease (CKD)?? Valuables and Belongings I fully understand and agree that [facility] accepts no responsibility for all my personal property including clothing, toilet articles, radios, jewelry, dentures, hearing aids, rings, money, or any other property that is in my possession or is brought to me after admission. I understand certain valuables may be placed in a hospital safe for a short period of time. I understand that the hospital is not liable for loss or damage due to accident, fire, or other natural occurrence while said property is in the safe. I accept full responsibility for any personal property that I keep with me, and will not hold the hospital responsible in case of loss or disappearance. I acknowledge that i have been encouraged to send valuables and belongings home. ?? No Valuables/Belongings: No valuables/belongings present Date for Pt to Sign Valuables/Belongings: 11/22/22 03:18:00 ?? Other Discharge Information ? Pulmonary Rehab Status?? Pulmonary Rehab Discharge Status?? Respiratory Rate: 20 br/min ? Common Emergency Awareness Tips IS IT A STROKE? Act FAST and Check for these signs: FACE Does the face look uneven? ARM Does one arm drift down? SPEECH Does their speech sound strange? TIME Call at any sign of stroke ?? Heart Attack Signs Chest discomfort: Most heart attacks involve discomfort in the center of the chest and lasts more than a few minutes, or goes away and comes back. It can feel like uncomfortable pressure, squeezing, fullness or pain. Discomfort in upper body: Symptoms can include pain or discomfort in one or both arms, back, neck, jaw or stomach. Shortness of breath: With or without discomfort. Other signs: Breaking out in a cold sweat, nausea, or lightheaded. Remember, MINUTES DO MATTER. If you experience any of these heart attack warning signs, call to get immediate medical attention! ?? Smoking can increase your chances of developing chronic health problems and can cause harmful effects to other family members in your house. If you smoke, you are strongly encouraged to quit. Please call [facility] [employer] [facility] at [phone] or [phone] ([phone]) or log in to [email or web address] for referrals to smoking cessation programs. ?? The National Suicide Prevention Hotline is available 28/04 if you or someone you know needs to find a reason to keep living. By calling 4-179-440-[employer] (4172) you'll be connected to a skilled, trained counselor at a crisis center in your area. INPATIENT DISCHARGE INSTRUCTIONS SIGNATURE PAGE LILO JACKSON Location:[facility] Registration Date and Time:11/21/2022 17:40 EST Primary Care Physician: Alex Veras MD, I MANUEL LILO, have received the above patient education materials/instructions and have verbalizedunderstanding. If ambulance or transport services are being used I further acknowledge being given a choice of service. ?? If you need to contact me, please call me at this number: . Patient/Hose Sprayer Name: Patient/Hose Sprayer Signature: Relationship to Patient: Witness Name/Signature: Date: * Do Padmini JACOBO T: PERFORM, SIGN, VERIFY Event Display: Patient Education Handout Authored Date: [id number] * Do Padmini JACOBO T: PERFORM Event Display: Patient Education Leaflets Authored Date: [id number] Chronic Kidney Disease (CKD) ?? [id number] Chronic Kidney Disease (CKD) The role of the kidneys is to remove waste products and extra water from the blood.??When the kidneys don't work as they should, waste products start to build up in the blood. This is called chronic kidney disease (CKD). CKD means that you have kidney damage or a decrease in kidney function lastingat least 3 months. CKD allows extra water, waste, and toxins to build up in the body. This can eventually become life-threatening. You might need dialysis or a kidney transplant to stay alive. This most severe form is called end-stage renal disease. Diabetes is one of the leading causes of chronic renal failure. Other causes include high blood pressure, hardening of the arteries (atherosclerosis), lupus, inflammation of the blood vessels (vasculitis), and past viral or bacterial infections. Certain zybd-yxi-qqsiiwi pain medicines can cause renal failure when taken often over a long period of time. These include aspirin, ibuprofen, and related anti-inflammatory medicines called NSAIDs (nonsteroidal anti- inflammatory drugs). Home care These guidelines will help you care for yourself at home: ??? If you have diabetes, talk??with yourhealthcare provider about keeping your blood sugar under control. Ask if you need to make and changes to your diet, lifestyle, or medicines. ??? If you have high blood pressure: o Take prescribed medicine to lower your blood pressure to the recommended goal of less than 130/80. o Start a regular exercise program that you enjoy.??Check with your healthcare provider to be sure your planned exerciseprogram is right for you. o Eat less salt (sodium).??Your healthcare provider can tell you how muchsalt per day is safe for you. ??? If you are overweight, talk??with your??healthcare provider??about a weight loss plan. ??? If you smoke, you must quit. Smoking makes kidney disease worse and puts you at risk for developing other serious illnesses.??Talk??with your healthcare provider about ways to help you quit.??For more information, visit the following links: o www.smokefree.gov/sites/default/files/pdf/kdapmyjt-cvb-nfw-accessible.pdf o www.smokefree.gov o www.cancer.org/healthy/stayawayfromt obacco/guidetoquittingsmoking ??? Most people with??CKD need to follow a special diet. Make sure you understand yours. In general, you will need to limit protein, salt, potassium, and phosphorus.??You also need to limit how much fluid you drink. ??? CKD is a risk factor for heart disease. Talk??with your healthcare provider about any other risk factors you might have and what you can do to lessenthem. ??? Talk??with your healthcare provider about any medicines you are taking to find out if they need to be reduced or stopped. ??? For your own safety, check with your healthcare provider beforetaking any medicines or supplements. Don't use the following syvx-mym-zhoyzon medicines. Or consultyour healthcare provider before using them: o Aspirin and NSAIDs such as ibuprofen or naproxen. Using acetaminophen for fever or pain is OK. o Laxatives and antacids containing magnesium or aluminum o Fleet or phospho-soda enemas containing phosphorus o Certain stomach acid-blocking medicine such as cimetidine or ranitidine?? o Decongestants containing pseudoephedrine?? o Herbal supplements ?? Follow-up care Follow up with your healthcare provider as advised. Visit these websites to learn more: ??? [place] [employer] Patients at www.aakp.org ??? National Kidney Foundation at www.kidney.org ??? [place] [employer] at www.kidneyfund.org ??? National Kidney Disease Education Program at www.nkdep.nih.gov If an X-ray, ECG (electrocardiogram), or other diagnostic test was taken, you'll be told of any newfindings that may affect your care. ?? Call 911 Call 911 right away if any of these occur: ??? Severe weakness, dizziness, fainting, drowsiness, orconfusion ??? Chest pain or shortness of breath ??? Heart beating fast, slow, or irregularly ?? When to get medical advice Call your healthcare provider right away if you have any of these: ??? Upset stomach (nausea) or vomiting ??? Fever??of 100.4??F (38??C) or higher, or as advised by your provider ??? Unexpected weight gain or swelling in the legs, ankles, or around the eyes ??? Not peeing a lot, or not peeing at all ??? New symptoms or symptoms that get worse ?? Last Reviewed Date: 2022 ?? 3487-5567 [employer]. All rights reserved. This information is not intended as a substitute for professional medical care. Always follow your healthcare professional's instructions. ?? * Clari , CIS S: Stephan Denny MD: VERIFY Event Display: Result: Authored Date: [id number] Chest 2 Views Frontal and Lat Reason: Cough; Clinical Question(s): Pneumonia COMPARISON: 11/03/2022 FINDINGS: LINES AND TUBES: None. LUNGS AND PLEURA: Clear lungs. Normal pulmonary vascularity. No pleural effusion. No pneumothorax. HEART, MEDIASTINUM AND MARGOT: Unchanged. Aorta is calcified. BONES AND SOFT TISSUES: No acute abnormality. IMPRESSION: No acute abnormality. WSN: [id number] Ordering Physician: Scar Erazo Dictated By: Stephan Benz MD Dictated Date/Time: 11/21/22 11:37 p Reviewed By: Stephan Benz MD Signed By: Stephan Benz MD Signed Date/Time: 11/21/22 11:37 pm Transcribed By: LULU Transcribed Date/Time: 11/21/22 11:36 pm US Retroperitoneum * BHSPowerscribe , CIS S: TRANSCBrennon Vega MD: VERIFY Amalia MONTANEZ, Kevin Nice: SIGN Event Display: Result: Authored Date: [id number] US Retroperitoneum Comp History: Acute kidney injury. COMPARISON: None. FINDINGS: Right kidney: 10.7 cm in length. No hydronephrosis. Normal parenchymal thickness and mild increase in echotexture. No stones. No suspicious mass. Left kidney: 10.1 cm in length. No hydronephrosis. Normal parenchymal thickness and mild increase echotexture. No stones. No suspicious mass. Urinary bladder: Incompletely distended, but no evidence of stone, mass, wall thickening or debris. IMPRESSION: No evidence of hydroureteronephrosis. I have personally reviewed the images and I agree with this report. WSN: [id number] Ordering Physician: Scar Erazo Dictated By: Kevin Holland MD Dictated Date/Time: 11/22/22 6:44 am Reviewed By: Brennon Guo MD Signed By: Brennon Guo MD Signed Date/Time: 11/22/22 6:49 am Transcribed By: LULU Transcribed Date/Time: 11/22/22 0:01 am Patient Care team information Care Team Personnel Name: Hayde Jerome RN Position: [facility] RN Member Role: Primary Care Nurse Name: Alex Veras MD Position: [facility] Outreach Member Role: PCP Address: Address: [address] [place] [address] Name: Angelica Wylie RN Position: [facility] RN Member Role: Primary Care Nurse Name: Cherelle Pedraza RN Position: [facility] RN Member Role: Primary Care Nurse Name: Emily Rivera RN Position: [facility] SN RN Member Role: Primary Care Nurse Name: Nlisa NORMAN Attending Position: [facility] ED Medicine Name: Huy Estevez Position: [facility] ED TA [facility] Member Role: Adviser Sales Name: Sherif Delatorre RN Position: [facility] ED RN W/OE and Tasks Member Role: Patient Care Provider Care Team Related Persons Name: LARS BARAHONA Address: [address] [place] [address] Name: LAURE GARCIA Address: home [address] [facility] [place]
--- OUTSIDE RECORDS SUMMARY | 2024-04-15 11:48 | XMS_ITS | Continuity of Care Document ---
Author Organization [facility] Address [address] [place] [id number]- Care Team Providers Care Manager Highway Name Role Phone Name Alex MONTANEZ Primary Care Physician Encounter [facility] Date(s): 06/06/23 - 07/06/23 [facility] [address] [address]- Attending Physician: Irving Marks Admitting Physician: Irving [...] ONCE DAILY Start Date: 06/07/23 Status: Ordered Vitamin B-12 1000 mcg oral [...] pulmonary embolus (PE) Confirmed Active Patient is Protestant Confirmed Active Hypercholesterolemia Confirmed Active Hypertension Confirmed [...] S Outreach Member Role: PCP Address: Address: [address] [place] [address]- Name: Angelica Wylie RN Position: S RN Member Role: Primary Care Nurse Name: Cherelle Pedraza RN Position: S RN Member Role: Primary Care Nurse Name: Emily Rivera RN Position: [facility] SN RN Member Role: Primary Care Nurse Name: Mio Marx MD Position: [facility] Renal MD Member Role: Lifetime Consulting Physician Address: Address: [address] [place] [address] [facility] [place] [address]- Care Team Related Persons Name: LARS BARAHONA Address: [address] [place] [address] Name: LAURE GARCIA Address: home [address] [facility]
--- OUTSIDE RECORDS SUMMARY | 2024-04-15 11:48 | XMS_ITS | Continuity of Care Document ---
Author Organization [facility] Address [address] [place] [address]- Care Team Providers Care Travel Counselor [employer] Name Role Phone Name Alex MONTANEZ Primary Care Physician [phone] Encounter [facility] [id number] Date(s): 10/07/23 - 03/14/[address] [address]- Attending Physician: Sherri Byrd MD Admitting Physician: Sherri Byrd MD Referring Physician: Alex Veras MD Allergies, Adverse Reactions, Alerts Substance Reaction [...] pulmonary embolus (PE) Confirmed Active Patient is Advent Confirmed Active Hypercholesterolemia Confirmed Active Hypertension Confirmed [...] Care Nurse Name: Alex Veras MD Position: [facility] Outreach Member Role: PCP Address: Address: [address] [place] [address]- Name: Angelica Wylie RN Position: [facility] RN Member Role: Primary Care Nurse Name: Cherelle Pedraza RN Position: [facility] Onco RN Member Role: Primary Care Nurse Name: Emily Rivera RN Position: [facility] SN RN Member Role: Primary Care Nurse Name: Mio Marx MD Position: [facility] Renal MD Member Role: Lifetime Consulting Physician Address: Address: [address] [place] [address] [facility] [place] [address]- Care Team Related Persons Name: LARS BARAHONA Address: [address] [place] [address] Name: GARCIACARTER AARONLAURE Address: home [address] [facility]
[2024-04-15 12:31] VITALS: BMI 37.9
--- NOTE | 2024-04-15 14:47 | MHC.SHP ---
Pre-Procedural Eval Section A - 24 Hr Update-Section A only Date of Service: 04/15/24 The patient is an INPATIENT: No Changes since office visit: No Cold of Flu in the past 2 weeks, No New Medical Problems, No Changes in Medication and No Patient answered all questions The patient has been examined within 24 hours of the surgical procedure. The History & Physical has been completed within 30 days and I have reviewed it.: Yes Section B - Complete if H&P > 30 days Chief Complaint: Carpal tunnel syndrome, right upper limb Allergies: Allergies Allergy/AdvReac Type Severity Reaction Status Date / Time acetaminophen [From MIDRIN] Allergy Severe VOMITING Verified 12/23/23 13:09 dichloralphenazone Allergy Severe VOMITING Verified 12/23/23 13:09 [From MIDRIN] isometheptene [From MIDRIN] Allergy Severe VOMITING Verified 12/23/23 13:09 metoclopramide [From REGLAN] Allergy Severe SEVERE Verified 12/23/23 13:09 VOMITNG morphine [MORPHINE] Allergy Severe ANXIOUS, Verified 12/23/23 13:09 DYSPHORIA, anomalous reaction acyclovir [ACYCLOVIR] Allergy Intermediate HIVES Verified 12/23/23 13:09 sumatriptan Allergy Unknown Unknown Verified 12/23/23 13:09 amitriptyline AdvReac Unknown palpitation Verified 12/23/23 13:09 s Amitriptyline Allergy Unknown Unknown Uncoded 12/23/23 13:09 Organidin NR Allergy Unknown Unknown Uncoded 12/23/23 13:09 Midrin AdvReac Unknown vomiting Uncoded 12/23/23 13:09 Plan I have reviewed the history and physical and performed a pertinent physical examination on my patient. No changes have occurred unless specified. Time Spent With Patient Time: Total time managing care of this patient today ____ minutes.
--- NOTE | 2024-04-15 14:48 | MHC.SHP ---
Pre-Procedural Eval Section A - 24 Hr Update-Section A only Date of Service: 04/15/24 Changes since office visit: No Cold of Flu in the past 2 weeks, No New Medical Problems, No Changes in Medication and No Patient answered all questions The patient has been examined within 24 hours of the surgical procedure. The History & Physical has been completed within 30 days and I have reviewed it.: Yes Section B - Complete if H&P > 30 days Chief Complaint: Right carpal tunnel, right middle finger trigger f Allergies: Allergies Allergy/AdvReac Type Severity Reaction Status Date / Time acetaminophen [From MIDRIN] Allergy Severe VOMITING Verified 12/23/23 13:09 dichloralphenazone Allergy Severe VOMITING Verified 12/23/23 13:09 [From MIDRIN] isometheptene [From MIDRIN] Allergy Severe VOMITING Verified 12/23/23 13:09 metoclopramide [From REGLAN] Allergy Severe SEVERE Verified 12/23/23 13:09 VOMITNG morphine [MORPHINE] Allergy Severe ANXIOUS, Verified 12/23/23 13:09 DYSPHORIA, anomalous reaction acyclovir [ACYCLOVIR] Allergy Intermediate HIVES Verified 12/23/23 13:09 sumatriptan Allergy Unknown Unknown Verified 12/23/23 13:09 amitriptyline AdvReac Unknown palpitation Verified 12/23/23 13:09 s Amitriptyline Allergy Unknown Unknown Uncoded 12/23/23 13:09 Organidin NR Allergy Unknown Unknown Uncoded 12/23/23 13:09 Midrin AdvReac Unknown vomiting Uncoded 12/23/23 13:09 Exam Exam Comment: Right carpal tunnel syndrome and right middle finger trigger finger Plan Diagnosis/Plan: Unchanged I have reviewed the history and physical and performed a pertinent physical examination on my patient. No changes have occurred unless specified. Time Spent With Patient Time: Total time managing care of this patient today ____ minutes.
--- NOTE | 2024-04-15 14:49 | W.PM.OPN ---
Operative Note Operative Note Date of Service: 04/15/24 Narrative: Preop diagnosis: 1. Right Carpal tunnel syndrome 2. Right middle finger trigger finger Postop diagnosis: same Procedure: 1. Right Carpal tunnel release 2. Right middle finger trigger release Surgeon: Caron Gonzales MD Chief Deputy Coroner: VIBHA Vanegas Anesthesia: local block using 1% lidocaine with epinephrine Findings: Thickened transverse carpal ligament. EBL: Less than 5 mL Specimens: None Complications: None Disposition: Brought to recovery room in stable condition Plan: Follow-up for 10-14 days for wound check and suture removal Indications: The patient is a 73 years old, with right carpal tunnel syndrome and a right middle finger trigger finger that have been unresponsive to nonoperative management. The risks and benefits of operative treatment including but not limited to risk of damage to blood vessels, nerves, tendons, infection, persistent pain, persistent symptoms, or possible need for additional surgery were discussed with the patient and the patient wishes to proceed with surgery. Procedure: Once consent was obtained a local block was performed using a combination of 1% lidocaine with epinephrine. The patient was then brought back to the operating suite and placed on the operative table in supine position. The right upper extremity was prepped and draped in a standard surgical fashion. Once assured that we had a good block, a 1.5 cm oblique incision was made centered over the A1 ashia of the right middle finger . The incision was made through the skin to the subcutaneous tissues using a #15 blade. Careful dissection was made down to the level of the A1 ashia using tenotomy scissors, with care being taken to protect the nearby neurovascular structures. A longitudinal incision was made in the A1 ashia 1st using a #15 blade, then using tenotomy scissors under direct visualization. The A1 ashia was noted to be thickened. Following our A1 ashia release, we no longer saw any locking or catching of the digit with flexion and extension. Once assured that we had a good block, a 2.0 cm longitudinal incision was made centered over the carpal tunnel. The incision was made through the skin to the subcutaneous tissues using a #15 blade. Dissection was made down to the level of the transverse carpal ligament with care being taken to protect the palmar cutaneous nerve. Once the transverse carpal ligament was clearly visualized, a longitudinal incision was made in the transverse carpal ligament 1st using a #15 blade, then using tenotomy scissors under direct visualization. Care was taken to look for and protect the motor branch of the median nerve when seen in this area. Once satisfied with our carpal tunnel release the wound was copiously irrigated with normal saline and hemostasis was obtained with a brief period of local pressure. The skin edges were reapproximated with some 5.0 nylon suture material and a sterile dressing was applied. The patient appears to have tolerated the procedure well and with no complications. All digits were well vascularized at the conclusion of the case.
[2024-04-15 15:32] VITALS: BP 168/64; PULSE 68; RESP 18; TEMP 36.9; O2SAT 98
== END 2024-04-15 15:48 | disposition home or self-care (01) ==
PROVIDERS: PCP Internal Medicine; Visit Provider Orthopaedic Surgery
PROC: (CPT 64721; principal; 2024-04-15 14:10)
PROC: (CPT 26055; 2024-04-15 14:10)
DX: M65.331 Trigger finger, right middle finger (principal); G56.01 Carpal tunnel syndrome, right upper limb; R20.0 Anesthesia of skin; R20.2 Paresthesia of skin; E11.9 Type 2 diabetes mellitus without complications; G62.9 Polyneuropathy, unspecified; R41.3 Other amnesia; Z88.5 Allergy status to narcotic agent; Z88.8 Allergy status to other drugs, medicaments and biological substances
CPT/HCPCS: 26055; 64721; J0171

== ENCOUNTER → 2024-04-15 11:45 | Outpatient (BNV) | payer MEDICARE, SELFPAY | PROVIDERS: PCP Internal Medicine; Visit Provider Orthopaedic Surgery | DX: G56.01 Carpal tunnel syndrome, right upper limb (principal); M65.331 Trigger finger, right middle finger | CPT/HCPCS: 26055; 64721 ==

== ENCOUNTER 2024-04-29 13:54 | Outpatient (AMB) | payer MEDICARE, SELFPAY ==
[2024-04-29 13:59] VITALS: BMI 37.8
--- NOTE | 2024-04-29 13:59 | A.OFFVIS_ITS ---
Vital Signs 04/29/24 13:59 Height 5 ft 1 in Weight 200 lb BMI 37.8 Intake Visit Reasons: PO RT CTR RT MF trigger 04/15/24 AR Intake Note: Elsa is a 73 yo right hand dominant female who presents today postoperatively s/p right CTR and right middle finger trigger release done 04/15/[address] Gonzales. Patient denies numbness, tingling, locking on fingers. Patient reports she is still unable to make a full fist due to soreness. Patient is not taking anything for pain with. Stitches removed and steri strips applied. Allergies acetaminophen [From MIDRIN] Allergy (Severe, Verified 04/29/24 14:00) VOMITING dichloralphenazone [From MIDRIN] Allergy (Severe, Verified 04/29/24 14:00) VOMITING isometheptene [From MIDRIN] Allergy (Severe, Verified 04/29/24 14:00) VOMITING metoclopramide [From REGLAN] Allergy (Severe, Verified 04/29/24 14:00) SEVERE VOMITNG morphine [MORPHINE] Allergy (Severe, Verified 04/29/24 14:00) ANXIOUS, DYSPHORIA, anomalous reaction acyclovir [ACYCLOVIR] Allergy (Intermediate, Verified 04/29/24 14:00) HIVES sumatriptan Allergy (Unknown, Verified 04/29/24 14:00) Unknown amitriptyline Adverse Reaction (Unknown, Verified 04/29/24 14:00) palpitations Amitriptyline Allergy (Unknown, Uncoded 04/29/24 14:00) Unknown Organidin NR Allergy (Unknown, Uncoded 04/29/24 14:00) Unknown Midrin Adverse Reaction (Unknown, Uncoded 04/29/24 14:00) vomiting HPI HPI PO RT CTR RT MF trigger 04/15/24 AR: Details: Patient is a HPI Comments Details: Patient is a 73-year-old female who presents for 2 week postoperative evaluation for right carpal tunnel release and right middle finger trigger release, DOS 04/15/2024. Patient reports that she is doing well, and reports complete resolution of both her trigger finger and carpal tunnel symptoms. Patient does report that she is having difficulty with full extension of her right middle finger. Patient reports that the incision sites are healing, and she has not noticed any increased redness, discharge, or evidence of infection. Patient inquires about getting signed up for trigger release and carpal tunnel release on the left side. No other acute complaints or concerns at this time [facility] Medical History (Updated 05/03/24 @ 16:27 by VIBHA Vanegas) IBS (irritable bowel syndrome) Glaucoma Brain bleed Kidney disease Pulmonary embolism HTN (hypertension) COPD (chronic obstructive pulmonary disease) Asthma Hypothyroid Neuropathy Diabetes Surgical History (Updated 04/15/24 @ 12:31 by Angie Garibay RN) H/O tubal ligation History of hysterectomy Hx of appendectomy Social History Alcohol intake: never Patient Tobacco Use Status: Never used Tobacco Current occupational status: disabled Current occupation: right hand dominant Physical Exam Vital Signs: BMI result Body Mass Index 37.8 Extrem Other: Patient is alert, oriented, and in no acute distress. Neuro: Median, ulnar, radial nerves motor and sensory intact and sensation is normal to the tips of all digits. Vascular: Cap refill brisk Pain: Patient reports discomfort in the right middle finger with attempted full extension. Patient reports mild tenderness to palpation over the A1 ashia of the left index and middle fingers. ROM: Patient is able to extend middle finger fully against a table with encouragement, but this causes discomfort All other extension of the R hand full and intact Skin: Well-healing incision site over the A1 ashia of the right middle finger and volar right wrist, no erythema or evidence of infection, sutures in place General: No ecchymosis, erythema, or evidence of infection. Psych: Appears grossly normal Affect normal Attitude cooperative Assessment & Plan Assessment & Plan (1) Trigger finger, left index finger: Code(s): M65.322 - Trigger finger, left index finger Category: Medical (2) Trigger finger, left middle finger: Code(s): M65.332 - Trigger finger, left middle finger Category: Medical (3) Carpal tunnel syndrome of left wrist: Code(s): G56.02 - Carpal tunnel syndrome, left upper limb Category: Medical Plan 1. Carpal tunnel syndrome, right, status post carpal tunnel release DOS 04/15/2024 2. Trigger finger, right middle finger status post trigger release DOS 04/15/2024 Patient is recovering well postoperatively Patient is educated about the typical recovery course Patient is referred to OT hand therapy in order to improve range of motion of the right middle finger Patient reports complete resolution of carpal tunnel symptoms at this time Patient will follow-up p.r.n. with any acute concerns 3. Carpal tunnel syndrome, left 4. Trigger finger, left index finger 5. Trigger finger, left middle finger I educated the patient about the condition. I discussed both operative and nonoperative treatment options. The patient would like to proceed with surgery. [] The risks and benefits of operative treatment were discussed with the patient and the patient wishes to proceed with surgery. These risks include, but are not limited to, risk of damage to blood vessels, nerves, tendons, infection, recurrence, incomplete relief of preoperative symptoms, persistent pain, possible need for further surgery, and the risks associated with regional blocks and/or anesthesia. Plan is to take the patient to the operating room at some point in the next few weeks for the following procedures: 1. Left carpal tunnel release under local anesthesia 2. Left index finger trigger release under local anesthesia 3. Left middle finger trigger release under local anesthesia All of the preoperative paperwork including the consent was discussed today. All of the patient's questions were answered in the clinic today. The patient understands that they will be in contact with our surgical instrument technician to discuss scheduling their procedure. Patient reports diabetes, last A1c 7.0 Patient denies blood thinners, asthma, heart issues, lung issues, kidney issues, or current smoking. Orders: Orders OT Evaluation and Treatment 04/29/24 M65.331 - Trigger finger, right middle finger Coding Level of Care Code Est Pt Level 4 (18959) Diagnoses Trigger finger, left index finger M65.322 Trigger finger, left middle finger M65.332 Carpal tunnel syndrome of left wrist G56.02
== END 2024-04-29 14:46 | disposition home or self-care (01) ==
PROVIDERS: PCP Internal Medicine Geriatric Medicine
DX: M65.322 Trigger finger, left index finger (principal); M65.332 Trigger finger, left middle finger; G56.02 Carpal tunnel syndrome, left upper limb
CPT/HCPCS: 99214

== ENCOUNTER → 2024-04-29 13:54 | Outpatient (BNVA) | payer MEDICARE, SELFPAY | PROVIDERS: PCP Internal Medicine Geriatric Medicine | DX: G56.02 Carpal tunnel syndrome, left upper limb (principal); M65.322 Trigger finger, left index finger; M65.332 Trigger finger, left middle finger | CPT/HCPCS: 99212 ==

== ENCOUNTER 2024-05-26 10:00 | Outpatient (RCR) | payer MEDICARE, SELFPAY ==
--- NOTE | 2024-05-14 15:50 | MHC.OT.OEV ---
[address] [phone] F: [phone] Occupational Therapy Evaluation Patient Name: Elsa Bernal Diagnosis: (R)MF trigger finger release Date of Onset: Date of Surgery: 04/15/24 Attending Provider: Jaret Jackson Prescribed Treatment: MD Follow Up Appointment: History of Current Condition: Patient is a 73 y/o female s/p 4 weeks (04/15/2024) (R)MF trigger finger release and CTR with c/o minimal pain and decreased finger ROM. She reports she lives alone, in a apartment building on the 2nd floor with elevator access. She stated prior to the surgery she was in pain and had great difficulty with move her finger, since the surgery her pain has decreased and she is able to bend the finger. She reported her PLOF as (I)ADLs/IADLs. Denies numbness/tingling. 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 Living Situation, Family and/or Social Support: has a large family Current Level of Function and Occupation Self Care, Employment, Leisure: min(A) IADLs Sleep: Sleeps through night Driving: Does not drive Vision: Balance: Pain Assessment Pain Score: 3rd (L) finger Pain Scale Used: Numeric (0 - 10) Pain Location and Description: 2/10 around the 3rd finger - dull aching Aggravating Factors: Alleviating Factors: nothing for the pain Skin and Soft Tissue Assessment Skin and Soft Tissue: Comments: scar at volar wrist and palmar crease, no signs/symptoms of infection Nerve assessment Ulnar Nerve: Median Nerve: Radial Nerve: Comments: WFL Sensory Assessment Temperature: Light Touch: Proprioception: Vibration: Comments: [place] Luis Alberto monofilament test= WFL Edema Assessment Upper Extremity: Lower Extremity: Comments: WFL Dexterity Assessment Dexterity: Comments: Functional Dexterity Test= (R)49.6 seconds Special Tests Comments: AROM(PROM) Strength Cervical Cervical Flexion: Cervical Extension: Cervical Lateral Flexion: Cervical Rotation: Comments: Shoulder Flexion: Extension: Abduction: Internal Rotation: External Rotation: Comments: WFL Flexion: Extension: Abduction: Internal Rotation: External Rotation: Comments: Flexors 4-/5 extensors 4/5 Elbow Flexion: Extension: Pronation: Supination: Comments: WFL Flexion: Extension: Pronation: Supination: Comments: flexors 4-/5 extensors 4/5 Wrist Flexion: 60 Extension: 45 Ulnar Deviation: 30 Radial Deviation: 15 Comments: Flexion: Extension: Ulnar Deviation: Radial Deviation: Comments: flexors 4-/5 extensors 4/5 Thumb Thumb CMC Flexion: Thumb MCP Flexion: Thumb IP Flexion: Radial Abduction: Palmar Abduction: [place] ([place] 0-10): Comments: Finger opposition WFL Digits Index MCP: PIP: DIP: Long MCP: 60 flexion PIP: 45 flexion DIP: 60 flexion Ring MCP: PIP: DIP: Small MCP: PIP: DIP: Comments: Gross Grasp: (L)15 Lateral Pinch: Two-Point Pinch: Three-Jaw [place]: Comments: (R)cement block maker strength not tested at this time Patient Education Primary Language: Claims Service Representative Required: No Current Knowledge: Teaching Method: Education Needs Identified on Evaluation: How did patient/family demonstrate learning? Barriers to Learning: Readiness for Learning: Who was educated? Comments: Plan of Care Assessment: Patient is a 73 y/o female s/p (R)MF trigger release and circuit clerk (04/15/2024) with c/o pain and decreased ROM. Patient stated her pain 2/10 pain during activity. She denies numbness/tingling. (R)cement block maker strength was not assessed but she achieved 15lbs. of the (L). Functional Dexterity Test= 49.6 seconds indicating impaired coordination, as WNL is 27seconds or below. Patient's current ROM measurements are as follows: 45* wrist extension, 60* wrist flexion, 30* ulna deviation, 15* radial deviation, 60* MCP flexion, 45* PIP flexion, and 60* DIP flexion of the 3rd finger. Based on initial evaluation patient's CLOF is min (A) IADLs as patient reports 2/10 pain, presents with impaired strength, impaired ROM, impaired coordination and impaired performance during self care tasks. Due to the documented impairments it is recommended that patient receive skilled OT in order for her to achieve her PLOF of (I). Thank you for your referral. STG Duration: 2 weeks Short Term Goals: Patient will report 0/10 pain in (R)hand Patient will be (I) with scar massage techniques Patient will increase (R)wrist extension to 50* Patient will increase (R)wrist flexion to 65* LTG Duration: 4 weeks Usp Goals: Patient will be (I) with HEP Patient's (R)wrist ROM will be WFL patient's (R)3rd digit ROM will be WFL Frequency and Duration: The patient will be seen 2x a week for 4 weeks Treatment Plan: Therapeutic Exercise Therapeutic Activity Home Exercise Program Patient Education Desensitization/Sensory Re-ed Edema Control ADL Training Ultrasound Iontophoresis Paraffin Fluidotherapy MHP Cold Packs Joint Mobilization Soft Tissue Mobilization Kinesiotaping Skilled OT eval and treat Electronically Signed By: SRIKANTH Hanks/L, CLT Reviewed/agree with student documentation: Therapist: Please sign and return to therapist, Thank you for your referral.
== END 2024-06-21 11:52 | disposition home or self-care (01) ==
LOC: HO.OT 10:00
PROVIDERS: PCP Internal Medicine Geriatric Medicine
DX: M65.331 Trigger finger, right middle finger (principal)
CPT/HCPCS: 97035; 97110; 97140; 97166

== ENCOUNTER 2024-07-28 14:05 | Outpatient (REF) | payer OTHER, SELFPAY ==
[2024-07-28 16:46] LABS: Alanine Aminotransferase 18 U/L (0-31); Albumin Level 3.9 g/dL (3.5-5.0); Alkaline Phosphatase 94 U/L (39-117); Anion Gap 13 (12-20); Aspartate Amino Transferase 24 U/L (5-31); Bilirubin Total 0.3 mg/dL (0.0-1.0); Blood Urea Nitrogen 49 mg/dL (9-16); Calcium 9.6 mg/dL (8.4-10.2); Carbon Dioxide 25 mmol/L (22-29); Chloride 108 mmol/L (96-108); Cholesterol 183 mg/dL (<200); Estimated Glomerular Filt Rate 18; Glucose Random 141 mg/dL (60-115); HDL Cholesterol 60 mg/dL (>40); LDL Cholesterol Calculated 106 mg/dL (<100); Potassium 3.7 mmol/L (3.3-5.1); Sodium 142 mmol/L (135-145); Triglycerides 87 mg/dL (<150)
== END 2024-07-28 14:06 | disposition home or self-care (01) ==
LOC: HO.HHCL 14:05
PROVIDERS: Visit Provider Internal Medicine Geriatric Medicine
DX: I12.9 Hypertensive chronic kidney disease with stage 1 through stage 4 chronic kidney disease, or unspecified chronic kidney disease (principal); N18.5 Chronic kidney disease, stage 5
CPT/HCPCS: 36415; 80053; 80061

== ENCOUNTER 2024-08-05 06:52 | Day surgery (SDC) | payer OTHER, SELFPAY ==
[2024-08-05 08:08] VITALS: BMI 35.7
[2024-08-05 08:13] VITALS: BP 145/47; PULSE 70; RESP 16; TEMP 37; O2SAT 97
--- NOTE | 2024-08-05 08:46 | MHC.SHP ---
Pre-Procedural Eval Section A - 24 Hr Update-Section A only Date of Service: 08/05/24 The patient is an INPATIENT: No Changes since office visit: No Cold of Flu in the past 2 weeks, No New Medical Problems, No Changes in Medication and No Patient answered all questions The patient has been examined within 24 hours of the surgical procedure. The History & Physical has been completed within 30 days and I have reviewed it.: Yes Section B - Complete if H&P > 30 days Chief Complaint: left index and middle finger trigger,carpal tunnel Allergies: Allergies Allergy/AdvReac Type Severity Reaction Status Date / Time acetaminophen [From MIDRIN] Allergy Severe VOMITING Verified 04/29/24 14:00 dichloralphenazone Allergy Severe VOMITING Verified 04/29/24 14:00 [From MIDRIN] isometheptene [From MIDRIN] Allergy Severe VOMITING Verified 04/29/24 14:00 metoclopramide [From REGLAN] Allergy Severe SEVERE Verified 04/29/24 14:00 VOMITNG morphine [MORPHINE] Allergy Severe ANXIOUS, Verified 04/29/24 14:00 DYSPHORIA, anomalous reaction acyclovir [ACYCLOVIR] Allergy Intermediate HIVES Verified 04/29/24 14:00 sumatriptan Allergy Unknown Unknown Verified 04/29/24 14:00 amitriptyline AdvReac Unknown palpitation Verified 04/29/24 14:00 s Amitriptyline Allergy Unknown Unknown Uncoded 04/29/24 14:00 Organidin NR Allergy Unknown Unknown Uncoded 04/29/24 14:00 Midrin AdvReac Unknown vomiting Uncoded 04/29/24 14:00 Plan Diagnosis/Plan: Unchanged I have reviewed the history and physical and performed a pertinent physical examination on my patient. No changes have occurred unless specified. Time Spent With Patient Time: Total time managing care of this patient today ____ minutes.
--- NOTE | 2024-08-05 08:47 | W.PM.OPN ---
Operative Note Operative Note Date of Service: 08/05/24 Narrative: Preop diagnosis: 1. Left Carpal tunnel syndrome 2. Left index finger trigger finger 3. Left middle finger trigger finger Postop diagnosis: same plus tenosynovitis with hypertrophic tenosynovium about the FDS tendons of both the index and middle fingers. Procedure: 1. Left Carpal tunnel release 2. Left index finger trigger release 3. Left index finger FDS tenosynovectomy 4. Left middle finger trigger release 5. Left middle finger FDS tenosynovectomy Surgeon: Caron Gonzales MD Supervisor [employer]: Jaret DUNNE Anesthesia: local block using 1% lidocaine with epinephrine Findings: Thickened transverse carpal ligament. Hypertrophic tenosynovium about the FDS tendons of both the index finger and the middle finger. No locking or catching after A1 ashia releases and tenosynovectomy. EBL: Less than 5 mL Specimens: None Complications: None Disposition: Brought to recovery room in stable condition Plan: Follow-up for 10-14 days for wound check and suture removal Indications: The patient is 73 years old, with left carpal tunnel syndrome and left index finger and left middle finger trigger fingers that have been unresponsive to nonoperative management. The risks and benefits of operative treatment including but not limited to risk of damage to blood vessels, nerves, tendons, infection, persistent pain, persistent symptoms, or possible need for additional surgery were discussed with the patient and the patient wishes to proceed with surgery. Procedure: Once consent was obtained a local block was performed using a combination of 1% lidocaine with epinephrine. The patient was then brought back to the operating suite and placed on the operative table in supine position. The left upper extremity was prepped and draped in a standard surgical fashion. Once assured that we had a good block, a 1.5 cm oblique incision was made centered over the A1 ashia of the left index finger . The incision was made through the skin to the subcutaneous tissues using a #15 blade. Careful dissection was made down to the level of the A1 ashia using tenotomy scissors, with care being taken to protect the nearby neurovascular structures. A longitudinal incision was made in the A1 ashia 1st using a #15 blade, then using tenotomy scissors under direct visualization. The A1 ashia was noted to be thickened. She was also found to have hypertrophic tenosynovium about the FDS tendon. A tenosynovectomy was performed excising this hypertrophic tenosynovium from the FDS tendon using iris scissors. Following our A1 ashia release and tenosynovectomy, we no longer saw any locking or catching of the digit with flexion and extension. Once assured that we had a good block, a 1.5 cm oblique incision was made centered over the A1 ashia of the left middle finger . The incision was made through the skin to the subcutaneous tissues using a #15 blade. Careful dissection was made down to the level of the A1 ashia using tenotomy scissors, with care being taken to protect the nearby neurovascular structures. A longitudinal incision was made in the A1 ashia 1st using a #15 blade, then using tenotomy scissors under direct visualization. The A1 ashia was noted to be thickened. ?She was also found to have hypertrophic tenosynovium about the FDS tendon.? A tenosynovectomy was performed excising this hypertrophic tenosynovium from the FDS tendon using iris scissors.? Following our A1 ashia release and tenosynovectomy, we no longer saw any locking or catching of the digit with flexion and extension. Once assured that we had a good block, a 2.0 cm longitudinal incision was made centered over the carpal tunnel. The incision was made through the skin to the subcutaneous tissues using a #15 blade. Dissection was made down to the level of the transverse carpal ligament with care being taken to protect the palmar cutaneous nerve. Once the transverse carpal ligament was clearly visualized, a longitudinal incision was made in the transverse carpal ligament 1st using a #15 blade, then using tenotomy scissors under direct visualization. Care was taken to look for and protect the motor branch of the median nerve when seen in this area. Once satisfied with our carpal tunnel release the wound was copiously irrigated with normal saline and hemostasis was obtained with a brief period of local pressure. The skin edges were reapproximated with some 5.0 nylon suture material and a sterile dressing was applied. The patient appears to have tolerated the procedure well and with no complications. All digits were well vascularized at the conclusion of the case.
[2024-08-05 11:09] VITALS: BP 126/51; PULSE 70; RESP 16; O2SAT 98
== END 2024-08-05 11:10 | disposition home or self-care (01) ==
PROVIDERS: PCP Internal Medicine; Visit Provider Orthopaedic Surgery
PROC: (CPT 64721; principal; 2024-08-05 08:50)
PROC: (CPT 26055; 2024-08-05 08:50)
DX: G56.02 Carpal tunnel syndrome, left upper limb (principal); M65.322 Trigger finger, left index finger; M65.332 Trigger finger, left middle finger; M65.842 Other synovitis and tenosynovitis, left hand; I10 Essential (primary) hypertension; E11.9 Type 2 diabetes mellitus without complications; G62.9 Polyneuropathy, unspecified; J44.9 Chronic obstructive pulmonary disease, unspecified; Z88.8 Allergy status to other drugs, medicaments and biological substances; Z88.5 Allergy status to narcotic agent; Z98.890 Other specified postprocedural states
CPT/HCPCS: 64721; 26145 ×2; 26055 ×2; J0171; J2003

== ENCOUNTER → 2024-08-05 06:52 | Outpatient (BNV) | payer OTHER, SELFPAY | PROVIDERS: PCP Internal Medicine; Visit Provider Orthopaedic Surgery | DX: M65.322 Trigger finger, left index finger (principal); M65.332 Trigger finger, left middle finger; G56.02 Carpal tunnel syndrome, left upper limb | CPT/HCPCS: 26055; 64721 ==

== ENCOUNTER 2024-08-17 09:39 | Outpatient (AMB) | payer MEDICARE, SELFPAY ==
--- NOTE | 2024-08-17 09:49 | A.OFFVIS_ITS ---
Vital Signs 08/17/24 09:50 Height 5 ft 2 in Weight 195 lb BMI 35.7 Intake Visit Reasons: PO LT CTR/IF/MF trigger 08/05/24 AR Intake Note: Elsa is ba 73 year old right hand dominant female who presents today post operatively s/p Left carpal tunnel release, left index finger trigger release, left index finger FDS tenosynovectomy, left middle finger trigger release and l eft middle finger FDS tenosynovectomy w/ Dr Gonzales DOS: 08/05/2024. Patient reports that she is doing well with no concerns. Sutures removed & Steris applied Allergies acetaminophen [From MIDRIN] Allergy (Severe, Verified 04/29/24 14:00) VOMITING dichloralphenazone [From MIDRIN] Allergy (Severe, Verified 04/29/24 14:00) VOMITING isometheptene [From MIDRIN] Allergy (Severe, Verified 04/29/24 14:00) VOMITING metoclopramide [From REGLAN] Allergy (Severe, Verified 04/29/24 14:00) SEVERE VOMITNG morphine [MORPHINE] Allergy (Severe, Verified 04/29/24 14:00) ANXIOUS, DYSPHORIA, anomalous reaction acyclovir [ACYCLOVIR] Allergy (Intermediate, Verified 04/29/24 14:00) HIVES sumatriptan Allergy (Unknown, Verified 04/29/24 14:00) Unknown amitriptyline Adverse Reaction (Unknown, Verified 04/29/24 14:00) palpitations Amitriptyline Allergy (Unknown, Uncoded 04/29/24 14:00) Unknown Organidin NR Allergy (Unknown, Uncoded 04/29/24 14:00) Unknown Midrin Adverse Reaction (Unknown, Uncoded 04/29/24 14:00) vomiting HPI HPI PO LT CTR/IF/MF trigger 08/05/24 AR: Details: Patient is a 73-year-old female who presents for postoperative evaluation status post left carpal tunnel release, left index finger trigger release, and left middle finger trigger release, DOS 08/05/2024. Today, the patient reports that she is feeling very well, and is no complaints or concerns at this time. Patient states that both her numbness and tingling and locking and catching of her fingers have completely resolved. No other acute complaints or concerns at this time. [facility] Medical History (Updated 05/03/24 @ 16:27 by VIBHA Vanegas) IBS (irritable bowel syndrome) Glaucoma Brain bleed Kidney disease Pulmonary embolism HTN (hypertension) COPD (chronic obstructive pulmonary disease) Asthma Hypothyroid Neuropathy Diabetes Surgical History (Updated 08/05/24 @ 08:07 by Angie Garibay RN) History of knee surgery Hx of cholecystectomy H/O tubal ligation History of hysterectomy Hx of appendectomy Social History Alcohol intake: never Patient Tobacco Use Status: Never used Tobacco Current occupational status: disabled Current occupation: right hand dominant Physical Exam Vital Signs: BMI result Body Mass Index 35.7 Extrem Other: Patient is alert, oriented, and in no acute distress. Neuro: Normal sensation of the tips of all digits of the left hand at this time Vascular: Cap refill brisk Pain: No tenderness to palpation about any of the incision sites on the left hand Range of motion of the right hand painless ROM: Patient is able to flex and extend all digits of the left hand fully and without difficulty Skin: No lacerations or abrasions. General: No ecchymosis, erythema, or evidence of infection. Psych: Appears grossly normal Affect normal Attitude cooperative Assessment & Plan Assessment & Plan (1) Carpal tunnel syndrome of left wrist: Code(s): G56.02 - Carpal tunnel syndrome, left upper limb Category: Medical (2) Trigger finger, left index finger: Code(s): M65.322 - Trigger finger, left index finger Category: Medical (3) Trigger finger, left middle finger: Code(s): M65.332 - Trigger finger, left middle finger Category: Medical Plan 1. Left carpal tunnel syndrome status post carpal tunnel release 2. Left left index finger trigger finger status post release 3. Left middle finger trigger finger status post release DOS 08/05/2024 Patient appears to be recovering well postoperatively Patient is educated about the typical recovery course At this time, patient is informed that she will not require any further postoperative evaluation at this time, as she is recovering very well and shows no evidence of stiffness Patient was amenable to this plan Patient will follow-up as needed with any acute concerns Coding Level of Care Code Global (28922) Diagnoses Carpal tunnel syndrome of left wrist G56.02 Trigger finger, left index finger M65.322 Trigger finger, left middle finger M65.806
[2024-08-17 09:50] VITALS: BMI 35.7
== END 2024-08-17 09:59 | disposition home or self-care (01) ==
LOC: HO.HOS 09:39
PROVIDERS: PCP Internal Medicine Geriatric Medicine
DX: G56.02 Carpal tunnel syndrome, left upper limb (principal); M65.322 Trigger finger, left index finger; M65.332 Trigger finger, left middle finger
CPT/HCPCS: 99024

== ENCOUNTER → 2024-08-17 09:39 | Outpatient (BNVA) | payer MEDICARE, SELFPAY | PROVIDERS: PCP Internal Medicine Geriatric Medicine | DX: Z47.89 Encounter for other orthopedic aftercare (principal); M65.322 Trigger finger, left index finger; M65.332 Trigger finger, left middle finger; Z98.890 Other specified postprocedural states | CPT/HCPCS: 99212 ==

== ENCOUNTER 2024-09-15 15:29 | Outpatient (REF) | payer MEDICARE, SELFPAY ==
[2024-09-15 16:58] LABS: Anion Gap 15 (12-20); Blood Urea Nitrogen 40 mg/dL (9-16); Calcium 9.3 mg/dL (8.4-10.2); Carbon Dioxide 24 mmol/L (22-29); Chloride 106 mmol/L (96-108); Estimated Glomerular Filt Rate 17; Glucose Random 161 mg/dL (60-115); Potassium 3.8 mmol/L (3.3-5.1); Sodium 141 mmol/L (135-145)
== END 2024-09-15 15:30 | disposition home or self-care (01) ==
LOC: HO.HHCL 15:29
PROVIDERS: Visit Provider Internal Medicine Geriatric Medicine
DX: E11.22 Type 2 diabetes mellitus with diabetic chronic kidney disease (principal); N18.5 Chronic kidney disease, stage 5; E06.3 Autoimmune thyroiditis
CPT/HCPCS: 36415; 80048

== ENCOUNTER 2025-06-27 10:29 | Outpatient (REF) | payer OTHER, SELFPAY ==
--- OUTSIDE RECORDS SUMMARY | 2025-06-23 07:45 | XMS_ITS | Encounter Summary ---
Author Organization [facility] Address [address] [address] Phone Care Team Providers Care Telecommunications Field Engineer Name Role Phone Name, Alex MONTANEZ Primary Care Provider [phone] Reason for Visit * Reason Comments Chronic Kidney Disease Encounter Details Date Type Department Care Team (Latest Contact Info) Description 06/23/2025 7:45 AM EDT Office Visit [facility] [address] [phone] Norma Sandoval ARNP [address] [address] Chronic kidney disease, stage 4 (severe) (HCC) (Primary Dx); Hypertension; Anemia in chronic kidney disease; Secondary hyperparathyroidism of renal origin (HCC); Microalbuminuria Social History Tobacco Use Types Packs/Day Years Used Date Smoking Tobacco: Never Smokeless Tobacco: Never Alcohol Use Standard Drinks/Week Comments No 0 (1 standard drink = 0.6 oz pur e alcohol) Comments Unknown Sex and Gender Information Value Date Recorded Sex Assigned at Not on file Legal Sex Female 4:43 PM EST Gender Identity Not on file Sexual Orientation Not on file documented as of this encounter Last Filed Vital Signs Vital Sign Reading Time Taken Comments Blood Pressure 120/60 06/23/2025 8:14 AM EDT Pulse 58 06/23/2025 7:54 AM EDT Temperature - - Respiratory Rate - - Oxygen Saturation 100% 06/23/2025 7:54 AM EDT Inhaled Oxygen Concentration - - Weight 83.6 kg (184 lb 6.4 oz) 06/23/2025 7:54 A M EDT Height - - Body Mass Index 33.73 08/10/2020 12:00 PM EST documented in this encounter Progress Notes * Norma Sandoval ARNP - 06/23/2025 7:45 AM EDT Images from the original note were not included. Patient Name: Elsa Bernal, Female Date of : 1950, 74 y.o. Date: 06/23/2025 [] New Patient [x] Established Patient [] New Hospital Follow Up [] Established Hospital Follow Up [] Telemed Visit [] H&P Referring MD: No primary care provider on file. PCP: Name, MD Alex Reason For Visit CKD 3b, DM, HTN Elsa Bernal is a 74 y.o. female seen today in f/u re CKD 4 in setting of DM/HTN and h/o episode of SIMONE event. Overall doing well, no complaints today. Meds reconciled as noted. Denies chest pain, shortness of breath, worsening leg edema. Complains of mild arthritic complaints but avoids use of NSAIDs. She continues to be incontinent of urine - wears depends. The following portions of the patient's chart were reviewed in this encounter and updated as appropriate: Allergies Meds Problems Med Hx Surg Hx Fam Hx Constitutional: Negative for chills, fever, weight gain and weight loss. HENT: Negative for hearing loss and nosebleeds. Eyes: Negative for blurred vision and impaired. Respiratory: Negative for cough and shortness of breath. Cardiovascular: Negative for chest pain, palpitations and leg swelling. Gastrointestinal: Negative for abdominal pain, diarrhea, nausea, vomiting and poor appetite. Genitourinary: Negative for dysuria, flank pain, frequency, hematuria, urgency and urinary hesitancy. Musculoskeletal: Negative. Negative for back pain and joint pain. Skin: Negative for rash. Neurological: Negative for dizziness, tingling, tremors, numbness and headaches. Psychiatric/Behavioral: Negative. Full 13 point review of systems unremarkable except as noted above. Past Medical History: Diagnosis Date Acute injury of kidney 10/2015 Anemia Benign paroxysmal positional vertigo 07/28/2019 Closed fracture of left wrist 01/11/2019 Cobalamin deficiency 08/24/2017 Diabetes mellitus (HCC) 07/27/2019 Last Assessment & Plan: Less than 24-hour admission expected. Metformin continued. No imaging with contrast planned. MRI/MRA of the head only. -Monitor blood glucose Dizziness 07/27/2019 Last Assessment & Plan: Patient presenting with dizziness and vertigo with history of 3-4 similar episodes most recently 1 year ago. Patient has previously been treated by physical therapy with with [place]-Hallpike maneuvers. She does feel that her symptoms improved in the emergency department after 1 dose of meclizine. Given her complicated vascular history was felt that posterior stroke needed Essential hypertension Glaucoma H/O: pulmonary embolus 08/24/2017 Last Assessment & Plan: History of PE, previously on Coumadin which was discontinued in 06/2018.No concerning symptoms at the time of presentation. Denies shortness of breath. No tachycardia or hypoxia. No indication for further testing. Hyperlipidemia Hypothyroidism Seasonal allergy 04/01/2019 Sleep apnea Type 2 diabetes mellitus (HCC) Vaginal bleeding 08/25/2017 Past Surgical History: Procedure Laterality Date EYE SURGERY OTHER SURGICAL HISTORY tubal ligation Social History Tobacco Use Smoking status: Never Smokeless tobacco: Never Substance Use Topics Alcohol use: No Family History Problem Relation Age of Onset Diabetes Mother Diabetes Sibling Diabetes Father Kidney disease Sibling Hypertension Father Hypertension Mother Current Outpatient Medications Medication Sig Dispense Refill amLODIPine (NORVASC) 10 MG tablet Take 1 tablet (10 mg total) by mouth 1 (one) time each day 90 tablet 3 aspirin (ST ALEKS) 81 MG EC tablet Take 81 mg by mouth 1 (one) time each day atorvastatin (LIPITOR) 10 MG tablet Take 10 mg by mouth 1 (one) time each day bimatoprost (LUMIGAN) 0.01 % ophthalmic drops 1 drop every night C-Chewable 500 MG chewable tablet CHEW AND SWALLOW 1 TABLET ONCE DAILY calcitriol (ROCALTROL) 0.25 MCG capsule Take 1 capsule by mouth once daily 90 capsule 0 cetirizine (ZyrTEC) 10 MG tablet chlorthalidone (HYGROTON) 50 MG tablet Take 1 tablet by mouth once daily 90 tablet 0 cholecalciferol (VITAMIN D-3) 50 MCG (2000 UT) tablet Take 2,000 Units by mouth every morning citalopram (CeleXA) 20 MG tablet Take 30 mg by mouth 1 (one) time each day (Patient taking differently: Take 40 mg by mouth at bed time) cyanocobalamin (VITAMIN B-12) 1000 MCG tablet Take 1,000 mcg by mouth 1 (one) time each day Farxiga 10 MG tablet TAKE 1 TABLET BY MOUTH ONCE DAILY IN THE MORNING 90 tablet 0 hydrALAZINE (APRESOLINE) 10 MG tablet Take 10 mg by mouth in the morning and 10 mg in the evening and 10 mg before bedtime. levothyroxine (SYNTHROID, LEVOTHROID) 112 MCG tablet Take 112 mcg by mouth 1 (one) time each day Linzess 72 MCG capsule TAKE 1 CAPSULE BY MOUTH ONCE DAILY AT LEAST 1 HOUR BEFORE THE FIRST MEAL OF THE DAY losartan (Cozaar) 25 MG tablet Take 1 tablet (25 mg total) by mouth 1 (one) time each day 90 tablet3 Trulicity 1.5 MG/0.5ML solution pen-injector cyanocobalamin (VITAMIN B-12) 1000 MCG tablet Take 1,000 mcg by mouth 1 (one) time each day No current facility-administered medications for this visit. Allergies Allergen Reactions Beta Adrenergic Blockers Nausea And Vomiting Ergotamine Nausea And Vomiting Yzvojvvqvxcsj-Qvhsraoht-Cenz Nausea And Vomiting Morphine Palpitations and Other (see comments) Prochlorperazine Nausea And Vomiting Promethazine Nausea And Vomiting Propranolol Nausea And Vomiting Amitriptyline Palpitations Acyclovir Dichloralphenazone Isometheptene Metoclopramide Midodrine Migergot [Ergotamine-Caffeine] Other (see comments) Sumatriptan Nausea And Vomiting Objective: Vitals: 06/23/25 0754 06/23/25 0814 BP: 144/70 120/60 BP Location: Right upper arm Right upper arm Patient Position: Sitting Sitting BP Cuff Size: Adult Adult Pulse: 58 SpO2: 100% Weight: 184 lb 6.4 oz (83.6 kg) Vitals reviewed. Constitutional: She is oriented to person, place, and time. She appears well- developed. She does not appear ill. No distress. HEENT: Mouth/Throat: Oropharynx is clear and moist. Eyes: Conjunctivae are normal. Neck: No JVD present. Cardiovascular: Normal rate, regular rhythm and normal heart sounds. No murmur heard.She exhibits no edema. Pulmonary/Chest: Effort normal and breath sounds normal. No respiratory distress. Abdominal: Soft. There is no abdominal tenderness. No hernia. Obese abdomen Neurological: She is alert and oriented to person, place, and time. Skin: Skin is warm and dry. No rash noted. No erythema. Psychiatric: She has a normal mood and affect. Her behavior is normal. Judgment normal. No results found for: EGFRAFR Est GFR Non Date Value Ref Range Status 11/20/2023 22 ML/MIN/1.73 M2 Final Comment: Creatinine based estimated glomerular filtration (eGFR) in adults is calculated using the National [employer] recommended 2020 CKD-EPI equation. Estimates GFR from serum creatinine, age and sex. Testing performed or reported by [facility], a Service of [facility], [address] [place] [address] Kenneth Chavira MD, Spragger [facility]# [id number] Chemistry Lab Units 06/20/25 1158 05/24/25 0524 05/23/25 2047 05/07/25 0509 05/03/25 1256 03/28/25 0924 12/08/24 2000 10/26/24 1421 09/15/24 1530 07/28/24 1405 05/17/24 1315 01/21/24 1413 11/20/23 1339 CREATININE mg/dL 2.7* 2.3* 2.3* 2.4* -- 2* 2.10* 2.20* < > 2.65* 2.10* < > 2.3* BUN mg/dL 40* 40* 40* 50* -- 39* 31* 48* < > 49* 44* < > 47* EGFRNAFR ML/MIN/1.73 M2 -- -- -- -- -- -- -- -- -- -- -- -- 22 GLUCOSE mg/dL 170* 120* 86 92 -- 87 67* 105* < > 141* 137* < > 134* POTASSIUM mmol/L 4.8 5 4.5 4.6 -- 5 4.3 4.3 < > 3.7 4.6 < > 5.0 SODIUM mmol/L 140 140 140 139 -- 135 140 138 < > 142 140 < > 138 CO2 mmol/L 23 24 25 21 -- 23 22 24 < > 25 24 < > 24 CHLORIDE mmol/L 107 109* 104 105 -- 101 107 103 < > 108 106 < > 103 ALBUMIN g/dL 3.7* -- -- -- -- 3.7* -- 4.0 -- 3.9 3.9 -- 4.3 URIC ACID mg/dL -- -- -- -- 8.7* -- -- -- -- -- -- -- -- BILIRUBIN TOTAL mg/dL -- -- -- -- -- -- -- -- -- 0.3 -- -- -- AST U/L -- -- -- -- -- -- -- -- -- 24 -- -- -- ALT U/L -- -- -- -- -- -- -- -- -- 18 -- -- -- < > = values in this interval not displayed. Bone Mineral Lab Units 06/20/25115705/24/2552305/23/25204605/07/25 0509 03/28/25 0912/08/24 2000 10/26/24 14210/26/24 1421 09/15/24 1530 07/28/24 1405 05/17/24 1315 01/21/24 1413 11/20/23 1339 CALCIUM mg/dL 9 8.6 9.1 9.2 9.1 8.9 -- 9.5 < > 9.6 9.1 < > 9.2 PHOSPHORUS mg/dL 4 3.4 -- -- 4 -- -- 4.6* -- -- 3.2 -- 3.2 ALK PHOS U/L -- -- -- -- -- -- -- -- -- 94 -- -- -- MAGNESIUM mg/dL -- 1.9 -- -- -- -- -- -- -- -- -- -- 2.3 PTH pg/mL 170* -- -- -- 250* -- 217* -- -- -- 215* -- 227* VITAMIN D ng/mL -- -- -- -- -- -- -- 29* -- -- 17* -- 30.0 < > = values in this interval not displayed. CBC Lab Units 06/20/25115705/24/2552305/23/25204625 0509 03/28/25 0924 12/08/24 2000 WBC AUTO K/uL 5.3 4.33 4.89 5.3 3.8* 5.51 RBC AUTO M/uL 3.44* 3.19* 3.49* 3.5* 3.49* 3.55* MCV fL 99.7 100 98.9 96.3 98.3 94.4 HEMATOCRIT % 34.3* 31.9* 34.5* 33.7* 34.3* 33.5* HEMOGLOBIN g/dL 10.6* 9.5* 10.6* 10.7* 10.5* 10.6* PLATELETS AUTO K/uL 195 148* 165 176 178 172 Urine Lab Units 06/20/25 1227 03/28/25 0936 ALB MG/G CREAT UR mg/g Cre 351.9* 994.9* PLAN: Assessment & Plan 74 Y/O wF EPISODE OF SIMONE ON CKD 4 DIABETIC HYPERTENSIVE PATIENT 1. CKD 4: most c/w DN/HTN renal dis and renal func; Creat up to 2.7 from 2.3 GFR 18; normal electrolytes/bicarb 2. HyperK: resolved; K WNL 4.8 as of 06/20/25 despite on ARB 3. Edema: absent today 4. H/O PE and remains off a.c. given h/o SAH 5. Metabolic Bone Disease of CKD: cont to track CA, Phos, HCO3, PTH and vit D levels and treat accordingly Incr PTH and borderline low Vit D 29 - Target PTH <150, Improved PTH 170 on 06/20/25 with normal Ca/Phos levels; on Calcitriol regimen and daily Vit D supp 2,000 U/daily 6. Obesity: Stable weight 7. CEASAR 8. HTN: well controlled; goal <130/80 9. Proteinuria: Improved MA/Cr 351 from 994 on Losartan and SGLT2i 10. Anemia in CKD: Hgb within target at 10.6, Keep 10-12; Iron studies WNL, not on iron supp To Maximize renal protection: -cont w/ ARB, monitor for hyperk -will cont SGLT2i -avoid Kerendia for now given h/o hyperk -LDL target < 70 -cont to stress strict BP/BS control and avoid NSAIDS PLAN: - Recheck BMP in the next few weeks to re-eval bump up in creatinine - No medication changes made today - Monitor home BP, track and bring in readings to visits - c/w Calcitriol 0.25 mcg daily - c/w Losartan 25 mg QD - c/w Farxiga - Follow low NA diet - Avoid NSAIDs/Decongestant medications/Nephrotoxins - cont to track renal func and UACR; - Refer back to kidney transplant and AVF placement if EGFR remains <20 on lab recheck - Had dialysis modality education and prefers in-center HD - Protect non-dominant arm for AVR prep 1. Chronic kidney disease, stage 4 (severe) (HCC) 2. Hypertension 3. Anemia in chronic kidney disease 4. Secondary hyperparathyroidism of renal origin (HCC) 5. Microalbuminuria Orders Placed This Encounter Basic metabolic panel PTH, intact Renal function panel Urine Albumin / Creatinine Ratio Urine Protein / creatinine ratio CBC Ferritin Iron Panel (Fe, TIBC, TSAT) Return in about 3 months (around 09/22/2025) for Next scheduled follow-up with AMANDA Oquendo Cosigned by Leo Stack MD at 06/26/2025 8:48 PM EDT documented in this encounter Plan of Treatment Upcoming Encounters Date Type Department Care Team (Late st Contact Info) Description 09/22/2025 7:45 AM EST Office Visit [facility] [address] [address] Norma Sandoval ARNP [address] [address] Scheduled Orders Name Type Priority Associated Diagnoses Orde r Schedule Basic metabolic panel Lab Routine Chronic kidney disease, stage 4 (severe) (HCC) Hypertension Expected: 06/23/2025, Expires: 07/23/2026 PTH, intact Lab Routine Chronic kidney disease, stage 4 (severe) (HCC) Hypertension Anemia in chronic kidney disease Secondary hyperparathyroidism of renal origin (HCC) Expected: 09/05/2025, Expires: 10/05/2025 Renal function panel Lab Routine Chronic kidney disease, stage 4 (severe) (HCC) Hypertension Anemia in chronic kidney disease Secondary hyperparathyroidism of renal origin (HCC) Expected: 09/05/2025, Expires: 10/05/2025 Urine Albumin / Creatinine Ratio Lab Routine Chronic kidney disease, stage 4 (severe) (HCC) Hypertension Anemia in chronic kidney disease Secondary hyperparathyroidism of renal origin (HCC) Expected: 09/05/2025, Expires: 10/05/2025 Urine Protein / creatinine ratio Lab Routine Chronic kidney disease, stage 4 (severe) (HCC) Hypertension Anemia in chronic kidney disease Secondary hyperparathyroidism of renal origin (HCC) Expected: 09/05/2025, Expires: 10/05/2025 CBC Lab Routine Chronic kidney disease, stage 4 (severe) (HCC) Hypertension Anemia in chronic kidney disease Secondary hyperparathyroidism of renal origin (HCC) Expected: 09/05/2025, Expires: 10/05/2025 Ferritin Lab Routine Chronic kidney disease, stage 4 (severe) (HCC) Hypertension Anemia in chronic kidney disease Secondary hyperparathyroidism of renal origin (HCC) Expected: 09/05/2025, Expires: 10/05/2025 Iron Panel (Fe, TIBC, TSAT) Lab Routine Chronic kidney disease, stage 4 (severe) (HCC) Hypertension Anemia in chronic kidney disease Secondary hyperparathyroidism of renal origin (HCC) Expected: 09/05/2025, Expires: 10/05/2025 documented as of this encounter Visit Diagnoses Diagnosis Chronic kidney disease, stage 4 (severe) (HCC)- Primary Hypertension Anemia in chronic kidney disease Secondary hyperparathyroidism of renal origin (HCC) Secondary hyperparathyroidism of renal origin Microalbuminuria documented in this encounter Care Teams Telecommunications Field Engineer Relationship Specialty Start Date End Date Name, MD Alex [address] [place] [id number] PCP - General 10/16/20 documented as of this encounter
--- OUTSIDE RECORDS SUMMARY | 2025-06-27 10:40 | XMS_ITS | Encounter Summary ---
Author Organization [employer] Address [address] [facility] [address] [place] [address] Care Team Providers Care Joist Setter Name Role Phone Name, Alex MONTANEZ Primary Care Provider [phone] Reason for Visit * Reason Comments Gout Encounter Details Date Type Department Care Team ([facility] Contact Info) Description 06/27/2025 10:40 AM EDT Office Visit [facility] [address] [place] [address] Geri Braga MD [address] [place] [address] Acute gout involving toe of left foot, unspecified cause (Primary Dx) Social History Tobacco Use Types Packs/Day Years Used Date Smoking Tobacco: Never Passive Smoke Exposure: Never Smokeless Tobacco: Never Tobacco Cessation:Counseling Given: Not Answered Alcohol Use Standard Drinks/Week Comments Never 0 (1 standard drink = 0.6 oz pur e alcohol) Depression Answer Date Recorded Patient Health Questionnaire-9 Score 4 09/15/2024 Patient Health Questionnaire-9 Score 4 09/15/2024 Last PHQ-9: Questionnaire Data Not on file 1 11/16/2023 Housing Stability Answer Date Recorded What is your housing situation today? I have jayy mascorro 09/15/[address] you li ve. Do you have problems with any of the following? I am not sure 09/15/2024 Food Insecurity Answer Date Recorded Within the past 12 months, y ou worried that your food would run out before you got money to buy more: Never True 09/15/2024 Within the past 12 months,th e food you bought just didn't last and you didn't have enough money to get more: Never True 08/2024 Transportation Answer Date Recorded In the past 12 months, has l ack of transportation kept you from medical appts, meetings, work or from getting things needed for daily living? Yes, it has kept me from medical appointments or getting medications. 09/15/2024 Utilities Answer Date Recorded In the past 12 months, has t he electric, gas, oil or water company threatened to shut off services in your home? No 09/15/2024 Depression Answer Date Recorded Patient Health Questionnaire-2 Score 0 09/15/2024 Internet Access Answer Date Recorded Internet Access Q1 Yes 09/15/2024 Internet Access Q2 Not on file 09/15/2024 Comments Unknown Sex and Gender Information Value Date Recorded Sex Assigned at Female 08/05/2022 10:27 AM EDT Legal Sex Female 10:27 AM EDT Gender Identity Female 08/05/2022 10:27 AM EDT Sexual Orientation Straight 08/05/2022 10 :27 AM EDT documented as of this encounter Last Filed Vital Signs Vital Sign Reading Time Taken Comments Blood Pressure 128/70 06/27/2025 10:01 AM EDT Pulse 72 06/27/2025 10:01 AM EDT Temperature 36.7 C (98.1 F) 06/27/2025 10:01 AM EDT Respiratory Rate 16 06/27/2025 10:01 AM EDT Oxygen Saturation - - Inhaled Oxygen Concentration - - Weight 83.6 kg (184 lb 3.2 oz) 06/27/2025 10:01 AM EDT Height 154.9 cm (5' 1 ) 06/27/2025 10:01 AM EDT Body Mass Index 34.8 06/27/2025 10:01 AM EDT documented in this encounter Progress Notes * Geri Braga MD - 06/27/2025 10:40 AM EDT Images from the original note were not included. Subjective Patient ID: Elsa Bernal is a 74 y.o. female who presents for Gout. Leg Pain The pain is present in the left foot. The pain is at a severity of 6/10. The pain is moderate. The pain has been Constant since onset. Associated symptoms include an inability to bear weight. The symptoms are aggravated by movement and weight bearing. Review of Systems Constitutional: Negative. Respiratory: Negative. Negative for shortness of breath. Cardiovascular: Negative for chest pain and palpitations. Gastrointestinal: Negative. Genitourinary: Negative. Musculoskeletal: Positive for joint swelling. Negative for neck pain. Neurological: Negative for headaches. Objective Physical Exam Constitutional: Appearance: Normal appearance. Cardiovascular: Rate and Rhythm: Normal rate and regular rhythm. Pulses: Normal pulses. Heart sounds: Normal heart sounds. Pulmonary: Effort: Pulmonary effort is normal. Musculoskeletal: Left foot: Swelling present. Legs: Neurological: Mental Status: She is alert. Assessment/Plan Diagnoses and all orders for this visit: Acute gout involving toe of left foot, unspecified cause Comments: Started on Short course of prednisone for 5 days Advised Colchicine for 5 days to avoid further attacks Orders: - Uric acid; Future Other orders - colchicine 0.6 MG tablet; Take 1 tablet (0.6 mg) by mouth Once per day for 10 days. - predniSONE (Deltasone) 20 MG tablet; Take 2 tablets (40 mg) by mouth Once per day for 5 days. documented in this encounter Plan of Treatment Not on file documented as of this encounter Procedures Procedure Name Priority Date/Time Associated Diagnosis Comments URIC ACID Routine 06/27/2025 10:35 AM EDT Acute gout involving toe of left foot, unspecified cause documented in this encounter Results * (ABNORMAL) Uric acid (06/27/2025 10:35 AM EDT) Uric Acid 8.6(H) 2.4 - 5.7 mg/dL [facility] Blood Venous blood specimen / Unknown 06/27/2025 10:35 AM EDT 06/27/2025 11:17 AM EDT us Geri Braga MD LAB BLOOD ORDERABLES Final Resul t [facility] [address] [place] [address] [phone] documented in this encounter Visit Diagnoses Diagnosis Acute gout involving toe of left foot, unspecified cause- Primary documented in this encounter Additional Health Concerns Assessment Noted Time PHQ-9 Depression Total Score: 4 09/15/20 24 2:45 PM EST documented as of this encounter Care Teams Joist Setter Relationship Specialty Start Date End Date Name, MD Alex [address] [place] [address] PCP - General Family Medicine 01/10/16 documented as of this encounter
[2025-06-27 12:18] LABS: Uric Acid 8.6 mg/dL (2.4-5.7)
--- OUTSIDE RECORDS SUMMARY | 2025-06-27 12:49 | XMS_ITS | Encounter Summary ---
Author Organization [employer] Address [address] [facility] [address] [place] [address] Care Team Providers Care Welder Oxyhydrogen Name Role Phone Name, Alex MONTANEZ Primary Care Provider [phone] Reason for Visit * Reason Comments Med Refill Encounter Details Date Type Department Care Team ([facility] st Contact Info) Description 10/01/2023 Refill [facility] [address] [place] [address] [phone] Khushi Ross MD [address] [place] [address] Essential hypertension Social History Tobacco Use Types Packs/Day Years Used Date Smoking Tobacco: Never Passive Smoke Exposure: Never Smokeless Tobacco: Never Alcohol Use Standard Drinks/Week Comments Never 0 (1 standard drink = 0.6 oz pur e alcohol) Housing Stability Answer Date Recorded What is your housing situation today? I have housing today, but I am worried about losing housing in the future 07/25/[address] you li ve. Do you have problems with any of the following? None of the above 07/25/2023 Food Insecurity Answer Date Recorded Within the past 12 months, y ou worried that your food would run out before you got money to buy more: Never True 07/25/2023 Within the past 12 months,th e food you bought just didn't last and you didn't have enough money to get more: Never True Transportation Answer Date Recorded In the past 12 months, has l ack of transportation kept you from medical appts, meetings, work or from getting things needed for daily living? No 07/25/2023 Utilities Answer Date Recorded In the past 12 months, has t he electric, gas, oil or water company threatened to shut off services in your home? No 07/25/2023 Depression Answer Date Recorded Patient Health Questionnaire-2 Score 0 09/06/2022 Comments Unknown Sex and Gender Information Value Date Recorded Sex Assigned at Female 08/05/2022 10:27 AM EDT Legal Sex Female 10:27 AM EDT Gender Identity Female 08/05/2022 10:27 AM EDT Sexual Orientation Straight 08/05/2022 10 :27 AM EDT documented as of this encounter Plan of Treatment Not on file documented as of this encounter Visit Diagnoses Diagnosis Essential hypertension Unspecified essential hypertension documented in this encounter Care Teams Welder Oxyhydrogen Relationship Specialty Start Date End Date Name, MD Alex [address] [place] [address] PCP - General Family Medicine 01/10/16 documented as of this encounter
--- OUTSIDE RECORDS SUMMARY | 2025-06-27 12:49 | XMS_ITS | Encounter Summary ---
Author Organization [facility] Address [address] [place] [id number] Phone Care Team Providers Care Architectural Draftsman Name Role Phone Name, Alex MONTANEZ Primary Care Provider [phone] Lakesha Cruz PA-C Unavailable [phone] Encounter Details Date Type Department Care Team (Late st Contact Info) Description 04/03/2018 Procedure Pass [facility], Ct Scan - [address] [address] Social History Tobacco Use Types Packs/Day Years Used Date Smoking Tobacco: Never Smokeless Tobacco: Never Alcohol Use Standard Drinks/Week Comments No 0 (1 standard drink = 0.6 oz pur e alcohol) Comments No Sex and Gender Information Value Date Recorded Sex Assigned at Female 03/05/2018 8:20 PM EDT Legal Sex Female 10:00 PM EDT Gender Identity Female 03/05/2018 8:20 PM EDT Sexual Orientation Straight 03/05/2018 8: 20 PM EDT documented as of this encounter Plan of Treatment Not on file documented as of this encounter Visit Diagnoses Not on filedocumented in this encounter Additional Health Concerns Infection Onset Date Last Indicated Resolved Time CoV-Exposed Comment:Recent close contact documented in the Travel/Symptom Screening Form 10/03/2021 10/07/2021 10/18/2021 1:[address] CoV-Risk 12/08/2024 12/08/2024 12/19/2024 1:21 AM EDT documented as of this encounter Care Teams Architectural Draftsman Relationship Specialty Start Date End Date Name, MD Alex [address] [place] [id number] PCP - General Geriatric Psychiatry 10/02/17 Lakesha Cruz PA-C [address] [place] [address] [email or web address] Physician Report Programmer Hematology 01/05/22 documented as of this encounter Additional Source Comments The information contained in this document represents components of the legal health record. It is not the complete legal health record.[facility]
--- OUTSIDE RECORDS SUMMARY | 2025-06-27 12:50 | XMS_ITS | Encounter Summary ---
Author Organization [facility] Address [address] [facility] [address] [place] [address] Phone Care Team Providers Care Senior Informatica Developer Name Role Phone Name, Alex MONTANEZ Primary Care Provider [phone] Lakesha Cruz PA-C Unavailable [phone] Encounter Details Date Type Department Care Team (Latest Contact Info) Description 06/14/2020 Transcribe Orders [facility] [address] [place] [address] Name, MD Alex [address] [place], [place] [phone] Fatigue, unspecified type (Primary Dx) Social History Tobacco Use Types Packs/Day Years Used Date Smoking Tobacco: Never Smokeless Tobacco: Never Alcohol Use Standard Drinks/Week Comments Yes 0 (1 standard drink = 0.6 oz pur e alcohol) 1 drink every 5 years Comments No Sex and Gender Information Value Date Recorded Sex Assigned at Female 03/05/2018 8:20 PM EDT Legal Sex Female 10:00 PM EDT Gender Identity Female 03/05/2018 8:20 PM EDT Sexual Orientation Straight 03/05/2018 8: 20 PM EDT Occupation Industry Job Start Date Job End Date Disabled, retired Not on file Not on file Not on franci e documented as of this encounter Plan of Treatment Not on file documented as of this encounter Results * TSH with reflex (06/14/2020 2:11 PM EDT) TSH 3.53 0.27 - 4.20 uIU/mL [facility] Blood 06/14/2020 2:11 PM EDT 06/14/2020 2:15 PM EDT Alex Veras MD LAB BLOOD ORDERABLES Final Resul t [facility] [address] [place] [address] documented in this encounter Visit Diagnoses Diagnosis Fatigue, unspecified type- Primary documented in this encounter Additional Health Concerns Infection Onset Date Last Indicated Resolved Time CoV-Exposed Comment:Recent close contact documented in the Travel/Symptom Screening Form 10/03/2021 10/07/2021 10/18/2021 1:[address] CoV-Risk 12/08/2024 12/08/2024 12/19/2024 1:21 AM EDT documented as of this encounter Care Teams Senior Informatica Developer Relationship Specialty Start Date End Date Name, MD Alex [address] [place] [address] PCP - General Geriatric Psychiatry 10/02/17 Lakesha Cruz PA-C [address] [place] [address] [email or web address] Physician Applied Psychology Professor Hematology 01/05/22 documented as of this encounter Additional Source Comments The information contained in this document represents components of the legal health record. It is not the complete legal health record.[facility]
--- OUTSIDE RECORDS SUMMARY | 2025-06-27 12:50 | XMS_ITS | Encounter Summary ---
Author Organization [facility] Address [address] [place] [address] Phone Care Team Providers Care Certified Court Interpreter Name Role Phone Name, Alex MONTANEZ Primary Care Provider [phone] Reason for Visit * Reason Comments Med Refill Encounter Details Date Type Department Care Team (Late Contact Info) Description 01/01/2023 Refill [facility] [address] [place] [phone] Elliott Jj MD Type 2 diabetes mellitus without complication (HCC); Hypertension Social History Tobacco Use Types Packs/Day Years [...] on file documented as of this encounter Plan of Treatment Upcoming Encounters Date Type Department Care Team (Late st Contact Info) Description 09/22/2025 7:45 AM EST Office Visit [facility] [address] [facility] [address] [place] [address] Norma Sandoval ARNP [address] [facility] [address] [place] [address] documented as of this encounter Visit Diagnoses Diagnosis Type 2 diabetes mellitus without complication (HCC) Hypertension documented in this encounter Care Teams Certified Court Interpreter Relationship Specialty Start Date End Date Name, MD Alex [address] [place] [id number] PCP - General 10/16/20 documented as of this encounter
--- OUTSIDE RECORDS SUMMARY | 2025-06-27 12:50 | XMS_ITS | Encounter Summary ---
Author Organization [facility] Address [address] [place] [address] Phone Care Team Providers Care Retread Builder Name Role Phone Name, Alex MONTANEZ Primary Care Provider [phone] Encounter Details Date Type Department Care Team (Late Contact Info) Description 01/14/2023 Office Communication [facility] [address] [place] [address] Susanne Gurrola RN Social History Tobacco Use Types Packs/Day Years [...] Encounters Date Type Department Care Team (Late Contact Info) Description 09/22/2025 7:45 AM EST Office Visit [facility] [address] [address] Norma Sandoval ARNP [address] [address] documented as of this encounter Visit Diagnoses Not on filedocumented in this encounter Care Teams Retread Builder Relationship Specialty Start Date End Date Name, MD Alex [address] [place] [phone] PCP - General 10/16/20 documented as of this encounter
--- OUTSIDE RECORDS SUMMARY | 2025-06-27 12:50 | XMS_ITS | Encounter Summary ---
Author Organization [employer] Address [address] [place] [address] [address] [place] [address] Care Team Providers Care Drum Attendant Name Role Phone Name, Alex MONTANEZ Primary Care Provider [phone] Reason for Visit * Reason Comments Med Refill Encounter Details Date Type Department Care Team ([facility] Contact Info) Description 03/26/[address] [facility] [address] [place], [place] [phone] Name, MD Alex [address] [place] [address] Autoimmune hypothyroidism Social History Tobacco Use Types Packs/Day Years Used Date Smoking Tobacco: Never Smokeless Tobacco: Never Alcohol Use Standard Drinks/Week Comments Never 0 (1 standard drink = 0.6 oz pur e alcohol) Depression Answer Date Recorded Patient Health Questionnaire-2 Score 0 09/06/2022 Comments Unknown Sex and Gender Information Value Date Recorded Sex Assigned at Female 08/05/2022 10:27 AM EDT Legal Sex Female 10:27 AM EDT Gender Identity Female 08/05/2022 10:27 AM EDT Sexual Orientation Straight 08/05/2022 10 :27 AM EDT COVID-19 Exposure Response Date Recorded In the last 10 days, have yo u been in contact with someone who was confirmed or suspected to have Coronavirus/COVID-19? No / Unsure 03/19/2023 9:26 AM EDT documented as of this encounter Plan of Treatment Not on file documented as of this encounter Visit Diagnoses Diagnosis Autoimmune hypothyroidism documented in this encounter Care Teams Drum Attendant Relationship Specialty Start Date End Date Name, MD Alex [address] [place] [address] PCP - General Family Medicine 01/10/16 documented as of this encounter
--- OUTSIDE RECORDS SUMMARY | 2025-06-27 12:50 | XMS_ITS | Encounter Summary ---
Author Organization [employer] Address [address] [facility] [address] [place] [address] Care Team Providers Care Cutting Table Operator First Name Role Phone Name, Alex MONTANEZ Primary Care Provider [phone] Encounter Details Date Type Department Care Team (Latest Contact Info) Description 06/27/2025 Travel Social History Tobacco Use Types Packs/Day Years [...] filedocumented in this encounter Additional Health Concerns Assessment Noted Time PHQ-9 Depression Total Score: 4 09/15/20 24 2:45 PM EST documented as of this encounter Care Teams Cutting Table Operator First Relationship Specialty Start Date End Date Name, MD Alex [address] [place] [address] PCP - General Family Medicine 01/10/16 documented as of this encounter
--- OUTSIDE RECORDS SUMMARY | 2025-06-27 12:50 | XMS_ITS | Clinical Summary ---
Author Organization [employer] Address [address] [place] [address] 7[address] [place] [address] Care Team Providers Care Admitting Counselor Name Role Phone Name, Alex MONTANEZ Primary Care Provider [phone] Allergies Active Allergy Reactions Criticality Noted Date Comments Acetaminophen 02/05/2016 Other reaction(s): Nausea / Vomiting Acyclovir 01/01/2022 Amitriptyline Palpitations Medium 02/05/2016 Other reaction(s): Altered Heart Rate Beta Adrenergic Blockers Nausea And Vomiting High Dichloralphenazone 02/05/2016 Other reaction(s): Nausea / Vomiting Ergotamine Nausea And Vomiting High 05/04/2015 Ergotamine-Caffeine Other 05/03/2021 Other reaction(s): Other (see comments) Isometheptene 02/05/2016 Other reaction(s): Nausea / Vomiting Metoclopramide 01/01/2022 Midodrine 01/01/2022 Morphine Other,Palpitations High 05/04/2015 Other Nausea And Vomiting High 08/25/2017 Prochlorperazine Nausea And Vomiting High 08/25/2017 Promethazine Nausea And Vomiting High 08/25/2017 Sumatriptan Nausea And Vomiting 08/25/2017 Medications chlorthalidone (Hygroton) 50 MG tablet Take 1 tablet by mouth 1 (one) time each day. Active mometasone (Elocon) 0.1 % cream Apply topically at bed time. 03/01/20 16 Active ferrous sulfate 324 MG EC tablet Act delia fluticasone (Flonase) 50 MCG/ACT nasal spray Administer 1 spray into affected nostril(s) 1 (one) time each day. 03/15/20 19 Active glucose blood (FREESTYLE LITE) test strip every 6 (six) hours. 11/15/19 Active latanoprost (Xalatan) 0.005 % ophthalmic solution Administer 1 drop into affected eye(s) at bed time. 10/01/20 18 Active albuterol 108 (90 Base) MCG/ACT inhaler Inhale 2 puffs every 4 (four) hours if needed. 04/24/20 18 Active Alcohol Swabs (Alcohol Prep) pads Active Blood Pressure kit A ctive FreeStyle lancets 1 each by Other route in the morning, at noon, in the evening, and at bedtime. Use as instructed Active dapagliflozin (Farxiga) 10 MG TAKE 1 TABLET BY MOUTH ONCE DAILY IN THE MORNING 05/27/20 Active Blood Pressure kit 1 each in the morning. 1 kit 07/28/20 23 Active loperamide (Imodium A-D) 2 MG tabletIndications: Diarrhea due to COVID-19 Take 2 tablets to start, then take 1 tablet after each watery stool. Do not take more than 4 tablets in one day. 15 tablet 06/03/20 24 Active hydrALAZINE (Apresoline) 10 MG tablet TAKE 1 TABLET BY MOUTH TWICE DAILY 180 tablet 1 09/21/20 24 Active Blood Glucose Monitoring Suppl (FreeStyle Lite) deviceIndications: Type 2 diabetes mellitus with stage 4 chronic kidney disease, without long-term current use of insulin ([facility]) Inject under the skin 4 times daily. Use to check blood sugar by subcutaneous route 4 times per day 1 each 10/14/19 25 026 Active ascorbic acid (C-Chewable) 500 mg chewable tabletIndications: Pernicious anemia CHEW AND SWALLOW 1 TABLET ONCE DAILY 90 tablet 11/19/19 25 Active losartan (Cozaar) 25 MG tablet Take 25 mg by mouth Once per day. 11/30/19 25 026 Active cyanocobalamin (Vitamin B-12) 1000 MCG tabletIndications: Autoimmune hypothyroidism TAKE 1 TABLET BY MOUTH IN THE MORNING 90 tablet 1 01/14/20 25 Active cholecalciferol (Vitamin D-3) 50 MCG (2000 UT) tabletIndications: Vitamin D deficiency TAKE 1 TABLET BY MOUTH ONCE DAILY IN THE MORNING 90 tablet 1 01/14/20 25 Active Dulaglutide (Trulicity) 1.5 MG/0.5ML solution auto-injector Inject 1.5 mg under the skin 1 (one) time per week. 2 mL 3 02/09/20 25 Active cetirizine (EQ Allergy Relief, Cetirizine,) 10 MG tabletIndications: Allergic rhinitis, unspecified seasonality, unspecified trigger TAKE 1 TABLET BY MOUTH EVERY DAY 90 tablet 1 02/12/20 25 Active levothyroxine (Synthroid, Levoxyl) 112 MCG tabletIndications: Autoimmune hypothyroidism TAKE 1 TABLET BY MOUTH ONCE DAILY BEFORE BREAKFAST 90 tablet 1 02/16/20 25 Active aspirin (EQ Aspirin Adult Low Dose) 81 MG EC tablet TAKE 1 TABLET BY MOUTH EVERY DAY 90 tablet 1 02/16/20 25 Active amLODIPine (Norvasc) 10 MG tabletIndications: Essential hypertension TAKE 1 TABLET BY MOUTH IN THE MORNING 90 tablet 1 02/16/20 25 Active atorvastatin (Lipitor) 10 MG tablet TAKE 1 TABLET BY MOUTH EVERY DAY 90 tablet 1 02/16/20 25 Active citalopram (CeleXA) 20 MG tabletIndications: Depression, unspecified depression type TAKE 1 & 1/2 (ONE & ONE-HALF) TABLETS BY MOUTH ONCE DAILY 135 tablet 04/30/20 25 Active colchicine 0.6 MG tablet Take 1 tablet (0.6 mg) by mouth Once per day for 10 days. 10 tablet 06/27/20 25 025 Active predniSONE (Deltasone) 20 MG tablet Take 2 tablets (40 mg) by mouth Once per day for 5 days. 10 tablet 06/27/20 25 025 Active Active Problems Problem Noted Date Diagnosed Date Secondary hyperparathyroidism of renal origin Anemia in chronic kidney disease 11/30/2024 Left elbow tendonitis 07/18/2023 Type II diabetes mellitus 07/01/2023 Vitamin D deficiency 03/19/2023 Stage 4 chronic kidney disease 12/13/2022 History of stroke without residual deficits 08/06 On statin therapy 08/23/2022 Morbid obesity with BMI of 40.0-44.9, adult 08/06 Severe obesity 07/05/2022 Asthma 01/01/2022 Atrophic vulva 01/01/2022 Depressive disorder 01/01/2022 Hypothyroidism 01/01/2022 History of jehovah's witness or cultural beliefs affecti care 01/01/2022 Morbid obesity 01/01/2022 Renal osteodystrophy 05/03/2021 Type 2 diabetes mellitus wit h diabetic chronic kidney disease 05/03/2021 Type 2 diabetes mellitus without complication BPPV (benign paroxysmal positional vertigo) 07/07 Dizziness 07/27/2019 Overview (03/19/2023): Last Assessment & Plan: Patient presenting with dizziness and vertigo with history of 3-4 similar episodes most recently 1 year ago. Patient has previously been treated by physical therapy with with [employer]. She does feel that her symptoms improved in the emergency department after 1 dose of meclizine. Given her complicated vascular history was felt that posterior stroke needed to be ruled out prior to discharge. -MRI/MRA brain to be completed, hopefully tonight -Check orthostatic blood pressures -Continue meclizine 3 times daily -PT/OT evaluation -Stroke labs to be completed -No need for neck imaging with carotid ultrasound in 02/2019 which showed small amount of soft plaque in the carotid bulb on the right without significant plaquing on the left. No significant internal carotid artery stenosis seen. Vertebral arteries patent with antegrade flow bilaterally. -Echocardiogram completed in 04/2019 which showed borderline concentric LVH, normal LV systolic function, no wall motion abnormalities and normal LVEF 60%. No obvious valvular heart disease. Technically difficult study. No changes compared to prior echocardiogram from 2009. -If concerning MRI findings, tele-neurology consult should be considered. Diabetes mellitus 07/27/2019 Overview (07/01/2023): Last Assessment & Plan: Less than 24-hour admission expected. Metformin continued. No imaging with contrast planned. MRI/MRA of the head only. -Monitor blood glucose Seasonal allergies 04/01/2019 Closed fracture of wrist, le ft, with routine healing, subsequent encounter 01/11/2019 Renal insufficiency 11/30/2018 Overview (03/19/2023): Last Assessment & Plan: BUN 26 and creatinine 1.2 on arrival which appears to be new her baseline. She does have chronic hyperkalemia with potassium 5.7. -Recheck BMP at 10 PM. If potassium climbs may need Kayexalate or gentle IV fluids. -Renally dose medications as needed -Monitor labs daily Last Assessment & Plan: BUN 26 and creatinine 1.2 on arrival which appears to be new her baseline. She does have chronic hyperkalemia with potassium 5.7. -Recheck BMP at 10 PM. If potassium climbs may need Kayexalate or gentle IV fluids. -Renally dose medications as needed -Monitor labs daily Hypertension 11/30/2018 Overview (07/01/2023): Last Assessment & Plan: Blood pressure on arrival 149/66. Home medical regimen continued. -Amlodipine 10 mg daily -Chlorthalidone 12.5 mg daily -Lisinopril 10 mg daily Last Assessment & Plan: Blood pressure on arrival 149/66. Home medical regimen continued. -Amlodipine 10 mg daily -Chlorthalidone 12.5 mg daily -Lisinopril 10 mg daily Urinary tract infectious disease 08/03/2018 Stage 5 chronic kidney disease 05/25/2018 Proteinuria due to type 2 diabetes mellitus ([facility]) 05/25/2018 Type 2 diabetes mellitus 04/24/2018 Viral upper respiratory tract infection 01/31/20 18 Vaginal spotting 08/25/2017 B12 deficiency 08/24/2017 Iron deficiency anemia van alvaradoy to inadequate dietary iron intake 08/24/2017 Essential hypertension 07/04/2017 Assessment & Plan (07/18/2023 11:34 AM EDT): I advise low Na diet I will increase her amlodpine to 10mg daily, c/w chlortalidone 50mg RTC with nurse for BP check then f/u with PCP Serum creatinine raised 06/23/2017 High serum creatinine 06/23/2017 Peripheral venous insufficiency 03/25/2016 History of subarachnoid hemorrhage 01/23/2016 History of pulmonary embolus (PE) 01/23/2016 Autoimmune hypothyroidism 07/03/2015 Obesity 07/03/2015 Type 2 diabetes mellitus wit h stage 4 chronic kidney disease, without long-term current use of insulin 07/03/2015 Glaucoma 07/03/2015 Hypercholesterolemia 07/03/2015 Hypertensive disorder 07/03/2015 Obstructive sleep apnea syndrome 07/03/2015 Pernicious anemia 07/03/2015 Encounters Date Type Department Care Team Description 06/27/2025 10:40 AM EDT Office Visit [facility] [address] Geri Braga MD Acute gout involving toe of left foot, unspecified cause (Primary Dx) 06/27/2025 Travel 06/14/2025 Telephone [facility] [address] [place] [phone] Alex Veras MD Error (VOID this visit) 06/08/2025 Refill [facility] [address] [place] [phone] Aelx Veras MD 05/26/2025 Telephone [facility] [address] [place] [phone] Alex Veras MD 05/06/2025 2:00 PM EDT Office Visit [address] [address] Falguni Gutierrez CNP Acute gout involving toe of left foot, unspecified cause (Primary Dx) 05/06/2025 Travel 05/05/2025 Telephone [facility] [place] [address] Falguni Gutierrez CNP CHART PREP 05/03/[address] [address] Alex Veras MD ER Follow-up [facility]) 04/29/2025 Refill [facility] [place] [address] Alex Veras MD Depression, unspecified depression type 04/27/2025 9:30 AM EDT Office Visit [facility] [place] [address] Alex Veras MD Type 2 diabetes mellitus with stage 4 chronic kidney disease, without long-term current use of insulin ([facility]) (Primary Dx); History of colonoscopy; Hypertrophic toenail 04/27/2025 Abstract [facility] [address] [place] [address] Name, MD Alex 04/27/2025 Telephone [facility] [address] [facility] [place] [address] VelaMilena pen[place], [place] 04/27/2025 Travel from Last 3 Months Immunizations Immunization Administration Dates Next Due Hep A, Adult 07/22/2018 Influenza High-dose Quadriva lent Preservative Free 07/01/2023,06/18/2022,06/27/2021,10/21 Influenza injectable quadriv alent IIV4 with preservative 07/04/2017,07/18/2016 Influenza injectable quadriv alent preservative free 07/03/2015 Influenza, High Dose Seasona l, Preservative Free 09/15/2024,06/25/2019,07/03/2018 Influenza, Unspecified 06/18/2022,06/27/2021, Moderna Covid-19 Vaccine 12+ 01/16/2021,12/20/19 21 Pfizer Covid-19 Vaccine 12+ 09/15/2024,,07/30/2021 Pfizer Covid-19 Vaccine 12+ Bivalent 07/29/2022 Pneumococcal Conjugate PCV 13 04/24/2018, 015 Pneumococcal Conjugate PCV 20 06/18/2022 Pneumococcal Polysaccharide PPSV23 11/04/2016 RSV Adjuvant 05/25/2023 Tdap 10/21/2020,11/04/2016 Social History Tobacco Use Types Packs/Day Years [...] Orientation Straight 08/05/2022 10 :27 AM EDT Last Filed Vital Signs Vital Sign Reading Time Taken Comments Blood Pressure 128/70 06/27/2025 10:01 AM EDT Pulse 72 06/27/2025 10:01 AM EDT Temperature 36.7 C (98.1 F) 06/27/2025 10:01 AM EDT Respiratory Rate 16 06/27/2025 10:01 AM EDT Oxygen Saturation 99% 05/06/2025 1:47 PM EDT Inhaled Oxygen Concentration - - Weight 83.6 kg (184 lb 3.2 oz) 06/27/2025 10:01 AM EDT Height 154.9 cm (5' 1 ) 06/27/2025 10:01 AM EDT Body Mass Index 34.8 06/27/2025 10:01 AM EDT Plan of Treatment Health Maintenance Due Date Last Done Comments CT Colonography 1951 FIT DNA/Cologuard 1950 FIT 1950 FOBT 1950 Sigmoidoscopy 1950 Hepatitis C Screening 1969 Zoster Vaccines (1 of 2) 2001 Dental Oral Exam 08/08/2016 02/05/2016 Dental Prophylaxis 12/04/2016 06/04/2016 Dental X-Ray: Bitewings 02/05/2017 02/05/2016 Dental X-Ray: Full Mouth 02/05/2019 02/05/2016 Mammogram 07/31/2024 07/31/2022, 07/07, 05/22/2018, Additional history exists COVID-19 Vaccine ( season) 2025 09/15/2024, 07/29/2022, 07/29/2022, Additional history exists Influenza Vaccine (#1) 2025 , 07/01/2023, 06/18/2022, Additional history exists Lipid Panel 07/28/2025 07/28/2024, 06/06, 06/27/2021 Eye Exam 07/31/2025 07/31/2023 Alcohol/Substance Use Screening 09/15/2025 09/15/2024 Depression Screening 09/15/2025 09/15/2024, 09/15/20 SDOH Screening 09/15/2025 09/15/2024 Diabetes: Hemoglobin A1C 10/28/2025 025, 09/15/2024, 11/11/2023, Additional history exists Diabetes: Foot Exam 05/06/2026 05/06/2025, 05/06/2025, 05/06/2025, Additional history exists Tobacco Screening 06/27/2026 06/27/2025 DTaP/Tdap/Td Vaccines (3 - Td or Tdap) 10/21/2030 10/21/2020, 11/04/2016 Colonoscopy 11/28/2033 11/28/2023, 03/07/2015 Colorectal Cancer Screening 11/28/2033 Hepatitis A Vaccines Aged Out 07/22/2018 No long er eligible based on patient's age to complete this topic Pneumococcal Vaccine: 50+ Years Completed 06/18/2022, 04/24/2018, 11/04/2016, Additional history exists RSV Patients and Patients Aged 60 years or older Completed 05/25/2023 HIB Vaccines Aged Out No longer eligi ble based on patient's age to complete this topic HPV Vaccines Aged Out No longer eligi ble based on patient's age to complete this topic Hepatitis B Vaccines Aged Out No long er eligible based on patient's age to complete this topic IPV Vaccines Aged Out No longer eligi ble based on patient's age to complete this topic Meningococcal B Vaccine Aged Out No l onger eligible based on patient's age to complete this topic Meningococcal Vaccine Aged Out No joseph aakash eligible based on patient's age to complete this topic RSV under 20 months Aged Out No longe r eligible based on patient's age to complete this topic Rotavirus Vaccines Aged Out No longer eligible based on patient's age to complete this topic Procedures Procedure Name Priority Date/Time Associated Diagnosis Comments URIC ACID Routine 06/27/2025 10:35 AM EDT Acute gout involving toe of left foot, unspecified cause POCT GLYCATED HEMOGLOBIN, TOTAL Routine 04/27/2025 9:16 AM EDT Type 2 diabetes mellitus with stage 4 chronic kidney disease, without long-term current use of insulin ([facility]) POCT GLUCOSE Routine 04/27/2025 9:16 AM EDT Type 2 diabetes mellitus with stage 4 chronic kidney disease, without long-term current use of insulin ([facility]) LIPID PANEL, STANDARD Routine 07/28/2024 2:05 PM EDT Stage 5 chronic kidney disease ([facility]) Essential hypertension COLONOSCOPY Routine 11/28/2023 DIABETES EYE EXAM Routine 07/31/2023 MAMMOGRAPHY Routine 07/31/2022 PROPHYLAXIS - ADULT Routine 06/04/2016 1 2:00 AM EDT INTRAORAL - COMPLETE SERIES OF RADIOGRAPHIC IMAGES Routine 02/05/2016 12:00 AM EDT COMPREHENSIVE ORAL EVALUATION - NEW OR ESTABLISHED PATIENT Routine 02/05/2016 12:00 AM EDT from Last 3 Months or Most Recently Relevant to Health Maintenance Results * (ABNORMAL) Uric acid (06/27/2025 10:35 AM EDT) Pathologist [facility] [place] Uric Acid 8.6(H) 2.4 - 5.7 mg/dL [facility] Blood Venous blood specimen / Unknown 06/27/2025 10:35 AM EDT 06/27/2025 11:17 AM EDT Geri Braga MD LAB BLOOD ORDERABLES Final Resul t [facility] [address] [place] [phone] * POCT HGB A1C (04/27/2025 9:16 AM EDT) Pathologist [facility] [place] Hemoglobin A1C 5.5 4.0 - 5.7 % QC Media Lot # [id number] Lot# Expiration Date Blood 04/27/2025 9:16 AM EDT Alex Veras MD POINT OF CARE TEST ENTER/EDIT OR DERABLES Final Result * POCT Glucose (04/27/2025 9:16 AM EDT) Pathologist [facility] [place] Glucose Blood, POC 114 60 - 200 mg/dL QC Media Lot # [id number] Lot# Expiration Date 025 Blood Capillary blood specimen / Unknown 04/27/2025 9:16 AM EDT Alex Veras MD POINT OF CARE TEST ENTER/EDIT OR DERABLES Final Result * (ABNORMAL) Lipid Panel, Standard (07/28/2024 2:05 PM EDT) Pathologist [facility] [place] Triglycerides 87 <150 mg/dL [facility] Comment:Desirable Triglyceri de: less than 150 mg/dLBorderline High Triglyceride 150-199 mg/dLHigh Triglyceride: 200-499 mg/dLVery High Triglyceride: greater than or equal to 5OO mg/dL Cholesterol 183 <200 mg/dL [facility] Comment:Desirable Cholestero l: less than 200 mg/dLBorderline High Cholesterol: 200-239 mg/dLHigh Cholesterol: greater than 239 mg/dL LDL Cholesterol Calculated 106(H) <100 mg/dL [facility] Comment:Desirable LDL: less than 100 mg/dLNear Optimal/Above Optimal LDL: 110- 129 mg/dLBorderline High LDL: 130-159 mg/dLHigh LDL: 160-189 mg/dLVery High LDL: greater than or equal to 190 mg/dL HDL Cholesterol 60 >40 mg/dL [facility] Comment:Desirable HDL: great er than 40 mg/dL Note: This HDL assay may give artificially low results in patients with liver disease. Blood Venous blood specimen / Unknown 07/28/2024 2:05 PM EDT 07/28/2024 4:09 PM EDT us Alex Veras MD LAB BLOOD ORDERABLES Final Resul t Performing Organization Address City/State/[facility] Co de Phone Number [facility] [address] [place] [phone] * Colonoscopy (11/28/2023) Colonoscopy Normal Normal 11/28/2023 us Alex Veras MD HEALTH MAINTENANCE Final Result * Diabetes Eye Exam (07/31/2023) Eye Exam Normal Normal us Alex Veras MD HEALTH MAINTENANCE Final Result * Mammography (07/31/2022) Mammogram Routine Screening Mammogram Anatomical Region Laterality Modality Other us Trina Perez MD HEALTH MAINTENANCE Final Result from Last 3 Months or Most Recently Relevant to Health Maintenance Insurance [address] [place] [id number] [facility] OPT[employer] (HMO D-SNP) [facility] [address] [place] [address] Care Teams Admitting Counselor Relationship Specialty Start Date End Date Name, MD Alex [address] [place] [address] PCP - General Family Medicine 01/10/16
--- OUTSIDE RECORDS SUMMARY | 2025-06-27 12:50 | XMS_ITS | Encounter Summary ---
Author Organization [facility] Address [address] [place] [phone] Phone Care Team Providers Care Cryptographer Name Role Phone Name, Alex MONTANEZ Primary Care Provider [phone] Lakesha Cruz PA-C Unavailable [phone] Encounter Details Date Type Department Care Team (Latest Contact Info) Description 05/10/2019 Ancillary Orders Virtual Department [address] [place] [phone] Elías Hernadez MD [address] [place] [address], [address] [place] [address] [email or web address] Cerebrovascular accident (CVA), unspecified mechanism; Headache, unspecified headache type; Dizziness Social History Tobacco Use Types Packs/Day Years [...] as of this encounter Visit Diagnoses Diagnosis Cerebrovascular accident (CVA), unspecified mechanism Headache, unspecified headache type Dizziness Dizziness and giddiness documented in this encounter Additional Health Concerns Infection Onset Date Last Indicated Resolved Time CoV-Exposed Comment:Recent close contact documented in the Travel/Symptom Screening Form 10/03/2021 10/07/2021 10/18/2021 1:[address] CoV-Risk 12/08/2024 12/08/2024 12/19/2024 1:21 AM EDT documented as of this encounter Care Teams Cryptographer Relationship Specialty Start Date End Date Name, MD Alex [address] [place] [phone] PCP - General Geriatric Psychiatry 10/02/17 Lakesha Cruz PA-C [address] [place] [phone] [email or web address] Physician Ham Trimmer Hematology 01/05/22 documented as of this encounter Additional Source Comments The information contained in this document represents components of the legal health record. It is not the complete legal health record.[facility]
--- OUTSIDE RECORDS SUMMARY | 2025-06-27 12:50 | XMS_ITS | Encounter Summary ---
Author Organization [facility] Address [address] [place] [phone] Phone Care Team Providers Care Auto Hiker Name Role Phone Name, Alex MONTANEZ Primary Care Provider [phone] Lakesha Cruz PA-C Unavailable [phone] Encounter Details Date Type Department Care Team (Late st Contact Info) Description 02/03/2019 Procedure Pass [facility], [address] [place] [address] Social History Tobacco Use Types Packs/Day Years [...] documented as of this encounter Care Teams Auto Hiker Relationship Specialty Start Date End Date Name, MD Alex [address] [place] [phone] PCP - General Geriatric Psychiatry 10/02/17 Lakesha Cruz PA-C [address] [place] [phone] [email or web address] Physician Econometrics Professor Hematology 01/05/22 documented as of this encounter Additional Source Comments The information contained in this document represents components of the legal health record. It is not the complete legal health record.[facility]
--- OUTSIDE RECORDS SUMMARY | 2025-06-27 12:50 | XMS_ITS | Encounter Summary ---
Author Organization [facility] Address [address] [facility] [address] [place] [address] Phone Care Team Providers Care Front End Engineer Name Role Phone Name, Alex MONTANEZ Primary Care Provider [phone] Lakesha Cruz PA-C Unavailable [phone] Encounter Details Date Type Department Care Team (Late st Contact Info) Description 06/14/2020 Transcribe Orders [facility] [address] [place] [address] [place] [address] Mio Marx MD [address] [place] [address] Dr [address] [address] [email or web address] Essential (primary) hypertension (Primary Dx); Stage 3 chronic kidney disease; Iron deficiency anemia secondary to inadequate dietary iron intake Social History Tobacco Use Types Packs/Day Years [...] documented as of this encounter Results * (ABNORMAL) TOTAL PROTEIN CREATININE RATIO, RANDOM URINE (06/14/2020 2:11 PM EDT) URINE TOTAL PROTEIN 61.0 mg/dL [facility] URINE CREATININE 135 mg/dL [facility] URINE TP CRE RATIO 0.45(H) 0 - 0.19 [facility] Urine (Urine) 06/14/2020 2:1 1 PM EDT 06/14/2020 2:15 PM EDT Mio Marx MD URINE ORDERABLES Final Result Performing Organization Address [facility]/ZIP Co de Phone Number [address] [address] * (ABNORMAL) Urinalysis w/reflex Urine Culture (06/14/2020 2:11 PM EDT) COLOR Yellow Yellow [facility] CLARITY Clear [facility] GLUCOSE Negative Negative [facility] BILI Negative Negative [facility] KETONES Negative Negative [facility] SPECIFIC GRAVITY <1.005 1.005 - 1.030 [facility] BLOOD Negative Negative [facility] PH 6.0 5.0 - 8.0 [facility] Protein-UA 1+(A) Negative [facility] NITRITE Negative Negative [facility] Leukocyte esterase, ur Negative Negative [facility] Urine (Urine) 06/14/2020 2:1 1 PM EDT 06/14/2020 2:15 PM EDT Mio Marx MD URINE ORDERABLES Final Result Performing Organization Address [facility]/ZIP Co de Phone Number [address] [address] * Magnesium (06/14/2020 2:11 PM EDT) MAGNESIUM 2.2 1.6 - 2.6 mg/dL [facility] Blood 06/14/2020 2:11 PM EDT 06/14/2020 2:15 PM EDT us Mio Marx MD LAB BLOOD ORDERABLES Final Re sult [facility] [address] [place] [address] * (ABNORMAL) CBC and differential (06/14/2020 2:11 PM EDT) WBC 6.30 4.00 - 11.00 K/uL [facility] Comment:Note Reference Range updates to all CBC and Differential results. RBC 3.76 3.72 - 5.30 M/uL [facility] HGB 10.9(L) 11.4 - 15.9 g/dL [facility] Comment:Note updated Referen ce Ranges for all CBC and Differential results. HCT 33.8(L) 34.2 - 46.8 % [facility] PLT 237 140 - 430 K/uL [facility] MCV 89.9 78.0 - 97.0 fL [facility] MCH 29.0 25.0 - 33.0 pg [facility] MCHC 32.2 32.0 - 36.0 g/dL [facility] RDW 13.0 11.0 - 16.0 % [facility] MPV 11.1 8.4 - 12.8 [facility] NRBC 0.00 0 /100 WBCs [facility] ABSOLUTE NRBC 0.00 0 K/uL [facility] DIFF METHOD Auto [facility] NEUTS 69.9 43.0 - 75.0 % [facility] LYMPHS 20.3 18.2 - 47.4 % [facility] MONOS 7.9 4.00 - 11.00 % [facility] EOS 1.3 0.0 - 8.0 % [facility] BASOS 0.3 0.0 - 2.0 % [facility] Granulocytes, immature (%) 0.3 0.0 - 0.9 % [facility] ABSOLUTE NEUTS 4.40 1.80 - 7.70 K/uL [facility] ABSOLUTE LYMPHS 1.28 1.00 - 3.10 K/uL [facility] ABSOLUTE MONOS 0.50 0.20 - 0.80 K/uL [facility] ABSOLUTE EOS 0.08 0.00 - 0.80 K/uL [facility] ABSOLUTE BASOS 0.02 0.00 - 0.09 K/uL [facility] Granulocytes, immature 0.02 0.00 - 0.05 K/uL [facility] Blood 06/14/2020 2:11 PM EDT 06/14/2020 2:15 PM EDT Mio Marx MD LAB BLOOD ORDERABLES Final Re sult [address] [address] * (ABNORMAL) Parathyroid hormone (PTH) (06/14/2020 2:11 PM EDT) PARATHYROID HORMONE 129(H) 15 - 65 pg/mL [facility] Blood 06/14/2020 2:11 PM EDT 06/14/2020 2:15 PM EDT Mio Marx MD LAB BLOOD ORDERABLES Final Re sult Performing Organization Address [facility]/ZIP Co de Phone Number [address] [address] * (ABNORMAL) 25-OH vitamin D (06/14/2020 2:11 PM EDT) 25 OH VIT D (TOTAL) 28(L) 30 - 60 ng/mL [facility] Blood 06/14/2020 2:11 PM EDT 06/14/2020 2:15 PM EDT Mio Marx MD LAB BLOOD ORDERABLES Final Re sult Performing Organization Address City/[facility]/ZIP Co de Phone Number [address] [address] * (ABNORMAL) Renal panel (06/14/2020 2:11 PM EDT) SODIUM 139 133 - 146 mmol/L [facility] POTASSIUM 4.4 3.3 - 5.1 mmol/L [facility] CHLORIDE 104 96 - 108 mmol/L [facility] CO2 23 21 - 35 mmol/L [facility] GLUCOSE 148(H) 70 - 99 mg/dL [facility] BUN 20(H) 6 - 19 mg/dL [facility] CREATININE 1.40 0.5 - 1.5 mg/dL [facility] CALCIUM 9.6 8.4 - 10.3 mg/dL [facility] PHOSPHORUS 3.6 2.7 - 4.5 mg/dL [facility] ALBUMIN 4.1 3.9 - 4.8 g/dL [facility] EGFR 39(L) >59 mL/min/1.7 3m2 [facility] Comment:Estimated glomerular filtration rate calculated using the CKD-EPI equation. ANION GAP 16 10 - 20 mmol/L [facility] Blood 06/14/2020 2:11 PM EDT 06/14/2020 2:15 PM EDT Mio Marx MD LAB BLOOD ORDERABLES Final Re sult [address] [address] documented in this encounter Visit Diagnoses Diagnosis Essential (primary) hypertension- Primary Unspecified essential hypertension Stage 3 chronic kidney disease Iron deficiency anemia secondary to inadequate dietary iron intake documented in this encounter Additional Health Concerns Infection Onset Date Last Indicated Resolved Time CoV-Exposed Comment:Recent close contact documented in the Travel/Symptom Screening Form 10/03/2021 10/07/2021 10/18/2021 1:[address] CoV-Risk 12/08/2024 12/08/2024 12/19/2024 1:21 AM EDT documented as of this encounter Care Teams Front End Engineer Relationship Specialty Start Date End Date Name, MD Alex [address] [place] [address] PCP - General Geriatric Psychiatry 10/02/17 Lakesha Cruz, ARAMISC [address] [place] [address] [email or web address] Physician Telephone Mechanic Hematology 01/05/22 documented as of this encounter Additional Source Comments The information contained in this document represents components of the legal health record. It is not the complete legal health record.[facility]
--- OUTSIDE RECORDS SUMMARY | 2025-06-27 12:50 | XMS_ITS | Encounter Summary ---
Author Organization [facility] Address [address] [place] [address] Phone Care Team Providers Care Aviation Safety Inspector Name Role Phone Name, Alex MONTANEZ Primary Care Provider [phone] Lakesha Cruz PA-C Unavailable [phone] Encounter Details Date Type Department Care Team (Late st Contact Info) Description 07/27/2019 Procedure Pass [facility], [facility] [address] [place] [address] Social History Tobacco Use Types Packs/Day Years [...] franci e documented as of this encounter Functional Status documented as of this encounter Plan of [...] documented as of this encounter Care Teams Aviation Safety Inspector Relationship Specialty Start Date End Date Name, MD Alex [address] [place] [address] PCP - General Geriatric Psychiatry 10/02/17 Lakesha Cruz PA-C [address] [place] [address] [email or web address] Physician Machine Setter Automatic Hematology 01/05/22 documented as of this encounter Additional Source Comments The information contained in this document represents components of the legal health record. It is not the complete legal health record.[facility]
--- OUTSIDE RECORDS SUMMARY | 2025-06-27 12:50 | XMS_ITS | Encounter Summary ---
Author Organization [facility] Address [address] [place] [address] Phone Care Team Providers Care Valve Setter Name Role Phone Name, Alex MONTANEZ Primary Care Provider [phone] Lakesha Cruz PA-C Unavailable [phone] Encounter Details Date Type Department Care Team (Late st Contact Info) Description 07/27/2019 Procedure Pass [facility], [facility] [address] [place] [address] Social History Tobacco Use Types Packs/Day Years [...] documented as of this encounter Care Teams Valve Setter Relationship Specialty Start Date End Date Name, MD Alex [address] [place] [phone] PCP - General Geriatric Psychiatry 10/02/17 Lakesha Cruz PA-C [address] [place] [address] [email or web address] Physician Software Sales Manager Hematology 01/05/22 documented as of this encounter Additional Source Comments The information contained in this document represents components of the legal health record. It is not the complete legal health record.[facility]
--- OUTSIDE RECORDS SUMMARY | 2025-06-27 12:50 | XMS_ITS | Clinical Summary ---
Author Organization [facility] Address [address] [address] Phone Care Team Providers Care Sausage Canner Name Role Phone Name, Alex MONTANEZ Primary Care Provider [phone] Allergies Active Allergy Reactions Criticality Noted Date Comments Acyclovir 01/01/2022 Amitriptyline Palpitations Medium 08/25/2017 Beta Adrenergic Blockers Nausea And Vomiting High Dichloralphenazone 01/01/2022 Ergotamine Nausea And Vomiting High 08/25/2017 Isometheptene 01/01/2022 Nwliqvbzohchy-Cctapkrcp-Aiii Nausea And Vomiting High 08/25/2017 Metoclopramide 01/01/2022 Midodrine 01/01/2022 Ergotamine-Caffeine Other (see comments) 2020 Morphine Palpitations,Other ( see comments) High 08/25/2017 Prochlorperazine Nausea And Vomiting High 08/25/2017 Promethazine Nausea And Vomiting High 08/25/2017 Propranolol Nausea And Vomiting High 08/25/2017 Sumatriptan Nausea And Vomiting 08/25/2017 Medications aspirin (ST ALEKS) 81 MG EC tablet Take 81 mg by mouth 1 (one) time each day Active citalopram (CeleXA) 20 MG tablet Take 30 mg by mouth 1 (one) time each day Active levothyroxine (SYNTHROID, LEVOTHROID) 112 MCG tablet Take 112 mcg by mouth 1 (one) time each day Active Trulicity 1.5 MG/0.5ML solution pen-injector 03/04/ 20 22 Active atorvastatin (LIPITOR) 10 MG tablet Take 10 mg by mouth 1 (one) time each day 12/05/19 22 Active C-Chewable 500 MG chewable tablet CHEW AND SWALLOW 1 TABLET ONCE DAILY 12/03/19 22 Active cetirizine (ZyrTEC) 10 MG tablet 12/06/19 22 Active cyanocobalamin (VITAMIN B-12) 1000 MCG tablet Take 1,000 mcg by mouth 1 (one) time each day 04/22/20 22 Active hydrALAZINE (APRESOLINE) 10 MG tablet Take 10 mg by mouth in the morning and 10 mg in the evening and 10 mg before bedtime. Active Linzess 72 MCG capsule TAKE 1 CAPSULE BY MOUTH ONCE DAILY AT LEAST 1 HOUR BEFORE THE FIRST MEAL OF THE DAY 11/14/19 25 Active bimatoprost (LUMIGAN) 0.01 % ophthalmic drops 1 drop every night Active cholecalciferol (VITAMIN D-3) 50 MCG (2000 UT) tablet Take 2,000 Units by mouth every morning Active losartan (Cozaar) 25 MG tabletIndications:Chron ic kidney disease, stage 4 (severe) ([facility]),Hypertension Take 1 tablet (25 mg total) by mouth 1 (one) time each day 90 tablet 3 11/30/19 25 026 Active Farxiga 10 MG tablet TAKE 1 TABLET BY MOUTH ONCE DAILY IN THE MORNING 90 tablet 12/25/19 25 Active amLODIPine (NORVASC) 10 MG tabletIndications:Hyper tension Take 1 tablet (10 mg total) by mouth 1 (one) time each day 90 tablet 3 03/24/20 25 026 Active calcitriol (ROCALTROL) 0.25 MCG capsuleIndications:Seco ndary hyperparathyroidism of renal origin (HCC) Take 1 capsule by mouth once daily 90 capsule 05/02/20 25 Active chlorthalidone (HYGROTON) 50 MG tablet Take 1 tablet by mouth once daily 90 tablet 05/02/20 25 Active cyanocobalamin (VITAMIN B-12) 1000 MCG tablet Take 1,000 mcg by mouth 1 (one) time each day Active B Complex Vitamins (VITAMIN B COMPLEX PO) Take 1 capsule by mouth 1 (one) time each day 025 Discontin ued(Med List Maintenan ce) Active Problems Problem Noted Date Diagnosed Date Microalbuminuria 06/23/2025 Secondary hyperparathyroidism of renal origin Anemia in chronic kidney disease 11/30/2024 Vitamin D deficiency 03/19/2023 05/27/2023 Stage 5 chronic kidney disease 12/13/2022 Chronic kidney disease, stage 4 (severe) 023 History of cerebrovascular a ccident without residual deficits 08/23/2022 Stage 3a chronic kidney disease 07/11/2022 Stage 3a chronic kidney disease 07/11/2022 Severe obesity 07/05/2022 Has adventism belief 01/01/2022 History of subarachnoid hemorrhage 01/01/2022 Glaucoma 01/01/2022 Depressive disorder 01/01/2022 Atrophic vulva 01/01/2022 Asthma 01/01/2022 Hypothyroidism 01/01/2022 Hypercholesterolemia 01/01/2022 Morbid obesity 01/01/2022 Obstructive sleep apnea syndrome 01/01/2022 Type 2 diabetes mellitus without complication Stage 3b chronic kidney disease 05/03/2021 Type 2 diabetes mellitus wit h diabetic chronic kidney disease 05/03/2021 Renal osteodystrophy 05/03/2021 Hypertension 11/30/2018 Overview (05/03/2021): Last Assessment & Plan: Blood pressure on arrival 149/66. Home medical regimen continued. -Amlodipine 10 mg daily -Chlorthalidone 12.5 mg daily -Lisinopril 10 mg daily Renal insufficiency 11/30/2018 Overview (05/03/2021): Last Assessment & Plan: BUN 26 and creatinine 1.2 on arrival which appears to be new her baseline. She does have chronic hyperkalemia with potassium 5.7. -Recheck BMP at 10 PM. If potassium climbs may need Kayexalate or gentle IV fluids. 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 Metformin continued. No imaging with contrast planned. MRI/MRA of the head only. -Monitor blood glucose Dizziness 07/27/2019 05/03/2021 Overview (05/03/2021): Last Assessment & Plan: Patient presenting with dizziness and vertigo with history of 3-4 similar episodes most recently 1 year ago. Patient has previously been treated by physical therapy with with Linnette-Hallpike maneuvers. She does feel that her symptoms [...] MRI findings, tele-neurology consult should be considered. Seasonal allergy 04/01/2019 05/03/2021 Closed fracture of left wrist 01/11/2019 05/03/2021 Vaginal bleeding 08/25/2017 05/03/2021 Cobalamin deficiency 08/24/2017 021 H/O: pulmonary embolus 08/24/201705/03 Overview (05/03/2021): Last Assessment & Plan: History of PE, previously on Coumadin which was discontinued in 06/2018. No concerning symptoms at the time of presentation. Denies shortness of breath. No tachycardia or hypoxia. No indication for further testing. Encounters Date Type Department Care Team Description 06/23/2025 7:45 AM EDT Office Visit [facility] [address] [place] [address] Norma Sandoval ARNP Chronic kidney disease, stage 4 (severe) (HCC) (Primary Dx); Hypertension; Anemia in chronic kidney disease; Secondary hyperparathyroidism of renal origin (HCC); Microalbuminuria 04/29/2025 Refill [facility] [address] [place] [address] Norma Sandoval ARNP Hypertension (Primary Dx); Secondary hyperparathyroidism of renal origin (HCC); Chronic kidney disease, stage 4 (severe) (HCC) from Last 3 Months Immunizations Immunization Administration Dates Next Due Hepatitis A 07/22/2018 Influenza Split High Dose Pr eservative Free IM 06/25/2019,07/03/2018 Influenza, Quadrivalent, Preservative Free 07/03 Influenza, Quadrivalent, With Preservative 07/04,07/18/2016 Influenza, Unspecified 06/18/2022,06/27/2021, Moderna SARS-COV-2 01/16/2021,12/19/2020 Pfizer SARS-COV-2 07/29/2022,07/30/2021 Pneumococcal Conjugate 13-Valent 04/24/2018,1006/2015 Pneumococcal Conjugate Pcv 20 06/18/2022 Pneumococcal Polysaccharide 11/04/2016 Tdap 10/21/2020,11/04/2016 Family History Medical History Relation Comments Diabetes Father Hypertension Father Diabetes Mother Hypertension Mother Diabetes Sibling 1 Kidney disease Sibling 2 Relation Status Comments Father Mother Sibling 1 Sibling 2 Social History Tobacco Use Types Packs/Day Years Used Date Smoking Tobacco: Never Smokeless Tobacco: Never Tobacco Cessation:Counseling Given: Not Answered Alcohol Use Standard Drinks/Week Comments No 0 (1 standard drink = 0.6 oz pur e alcohol) Comments Unknown Sex and Gender Information Value Date Recorded Sex Assigned at Not on file Legal Sex Female 4:43 PM EST Gender Identity Not on file Sexual Orientation Not on file Last Filed Vital Signs Vital Sign Reading Time Taken Comments Blood Pressure 120/60 06/23/2025 8:14 AM EDT Pulse 58 06/23/2025 7:54 AM EDT Temperature - - Respiratory Rate - - Oxygen Saturation 100% 06/23/2025 7:54 AM EDT Inhaled Oxygen Concentration - - Weight 83.6 kg (184 lb 6.4 oz) 06/23/2025 7:54 A M EDT Height 157.5 cm (5' 2 ) 08/10/2020 12:00 PM EST Body Mass Index 33.73 08/10/2020 12:00 PM EST Plan of Treatment Upcoming Encounters Date Type Department Care Team (Late st Contact Info) Description 09/22/2025 7:45 AM EST Office Visit [facility] [address] [address] Norma Sandoval ARNP [address] [address] Health Maintenance Due Date Last Done Comments Breast Cancer Screening 1950 Colorectal Cancer Screening: Annual FOBT 2000 Colorectal Cancer Screening: Colonoscopy 2000 Colorectal Cancer Screening: Sigmoidoscopy 2000 Diabetes: Ophthalmology Exam 11/03/2020 Diabetes: Pedal Pulse Checked 11/03/2020 Diabetes: Sensory Foot Exam 11/03/2020 Diabetes: Visual Foot Exam 11/03/2020 Influenza Vaccine (#1) 2025 4, 06/18/2022, 06/27/2021, Additional history exists Diabetes: Hemoglobin A1C 07/28/20252 025, 09/15/2024, 11/11/2023, Additional history exists Pneumococcal Vaccine: 50+ Years Completed 06/18/2022, 04/24/2018, 11/04/2016, Additional history exists Pneumococcal Vaccine: Peds (0 to 5 Years) and At-Risk Patients (6 to 49 Years) Discontinued 06/18/2022, 04/24/2018, 11/04/2016, Additional history exists Hepatitis B Vaccine Aged Out No longe r eligible based on patient's age to complete this topic Procedures Procedure Name Priority Date/Time Associated Diagnosis Comments BLOOD PANEL (HC) Routine 05/19/2020 12:0 0 AM EDT from Last 3 Months or Most Recently Relevant to Health Maintenance Results * (ABNORMAL) Blood Panel (05/19/2020 12:00 AM EDT) LDL,Direct 84 <130 mg/dl [facility] Platelets 233 140 - 440 k/uL [facility] Vitamin D, 25-OH, Total 31 20 - 100 ng/ml [facility] Hematocrit 32.7(L) 38 - 50 % [facility] Sodium 137 137 - 145 mmol/L [facility] BUN 61(H) 9 - 20 mg/dl [facility] Calcium 9.3 8.4 - 10.2 mg/dl [facility] Triglycerides 111 <150 mg/dl [facility] HDL 58 >40 mg/dl [facility] Potassium 3.2(L) 3.5 - 5.1 mmol/L [facility] Carbon Dioxide (CO2) 26 22 - 30 mmol/L [facility] Creatinine 2.60(H) 0.70 - 1.30 mg/dl [facility] eGFR Non- 18(L) >60 ml/min [facility] Cholesterol 164 <200 mg/dl [facility] Hgb 10.6(L) 13.0 - 16.5 g/dl [facility] Hemoglobin A1C 8.8(H) <5 % [facility] 05/19/2020 us [facility] [id number] LICITED RESULTS Final Result [facility] from Last 3 Months or Most Recently Relevant to Health Maintenance Insurance [facility] ([id number]) [facility] ([id number]) VIBHA MEHTA [id number] Care Teams Sausage Canner Relationship Specialty Start Date End Date Name, MD Alex [address] [place] [address] PCP - General 10/16/20
--- OUTSIDE RECORDS SUMMARY | 2025-06-27 12:50 | XMS_ITS | Encounter Summary ---
Author Organization [employer] Address [address] [place] [address] [address] [place] [address] Care Team Providers Care Person Investigator Name Role Phone Name, Alex MONTANEZ Primary Care Provider [phone] Reason for Visit * Reason Onset Date Comments Nurse Triage 06/02/2024 Encounter Details Date Type Department Care Team ([facility] st Contact Info) Description 06/02/2024 Telephone [facility] [address] [place], [place] [phone] Name, MD Alex [address] [place] [address] Nurse Triage Social History Tobacco Use Types Packs/Day Years [...] AM EDT documented as of this encounter Miscellaneous Notes * Telephone Encounter - Patricia Sharma RN - 06/02/2024 4:27 PM EDT Triage call Pt reports Covid + 05/27/24. Pt symptoms have gotten better but, Pt has started having very watery diarrhea since yesterday 06/01/24. Pt reports unable to count how many times diarrhea occurred today. Rectal area is irritated and diarrhea is no longer with soft stool but, watery only. Pt has hx of kidney failure and called senior benefits analyst for advice and was directed to speak with PCP. Pt is offered WIC which is open till 8pm tonight. Pt is going to try to get a ride to come this evening because Pt is wanting some relief. Pt reports drinking liquids well. Insurance is verified as active. Protocol Used: Diarrhea (Adult) Protocol-Based Disposition: See in Office or Video Visit Today Video visit not offered Positive Triage Question: * Severe diarrhea (e.g., 7 or more times / day more than normal) and present > 24 hours (1 day) * All higher-acuity triage questions were negative Care Advice Discussed: * Reassurance and Education - Diarrhea * Reasons To Call Back - Signs of dehydration occur (e.g., no urine over 12 hours, very dry mouth, lightheaded, etc.) - Severe diarrhea lasts more than a day - Diarrhea lasts over 7 days - You become worse * Telephone Encounter - Narinder Christianson - 06/02/2024 4:05 PM EDT Tc from pt returning call regarding message prior. * Telephone Encounter - Narinder Christianson - 06/02/2024 3:31 PM EDT Symptom: Diarrhea Outcome: Schedule an appointment to be seen within 24 hours Reason: Caller denied all higher acuity questions documented in this encounter Plan of Treatment Not on file documented as of this encounter Visit Diagnoses Not on filedocumented in this encounter Care Teams Person Investigator Relationship Specialty Start Date End Date Name, MD Alex [address] [place] [address] PCP - General Family Medicine 01/10/16 documented as of this encounter
--- OUTSIDE RECORDS SUMMARY | 2025-06-27 12:50 | XMS_ITS | Encounter Summary ---
Author Organization [employer] Address [address] [place] [address] 7[address] [place] [address] Care Team Providers Care Boring Machine Operator Name Role Phone Name, Alex MONTANEZ Primary Care Provider [phone] Encounter Details Date Type Department Care Team ([facility] st Contact Info) Description 03/10/2023 Abstract [facility] MED[facility] [address] [place], [place] [id number] Name, MD Alex [address] [place] [address] Social History Tobacco Use Types Packs/Day Years [...] Procedure Name Priority Date/Time Associated Diagnosis Comments COLONOSCOPY Routine 03/07/2015 10:18 AM EDT documented in this encounter Results * Hm Colonoscopy (03/07/2015 10:18 AM EDT) Colonoscopy Normal Normal Narrative Edilma Carrasco - 03/07/2015 10:18 AM EDT Recommended 10 year follow u us Historical Provider HEALTH MAINTENANCE Final Result documented in this encounter Visit Diagnoses Not on filedocumented in this encounter Care Teams Boring Machine Operator Relationship Specialty Start Date End Date Name, MD Alex [address] [place] [address] PCP - General Family Medicine 01/10/16 documented as of this encounter
--- OUTSIDE RECORDS SUMMARY | 2025-06-27 12:50 | XMS_ITS | Encounter Summary ---
Author Organization [employer] Address [address] [place] [address] 7t [place] [address] Care Team Providers Care Pheresis Nurse Name Role Phone Name, Alex MONTANEZ Primary Care Provider [phone] Reason for Visit * Reason Comments Med Refill Encounter Details Date Type Department Care Team ([facility] st Contact Info) Description 06/08/2025 Refill [facility] MED[facility]INE [address] [place], [place] [phone] Name, MD Alex [address] [place] [address] Social History Tobacco Use Types Packs/Day Years [...] documented as of this encounter Care Teams Pheresis Nurse Relationship Specialty Start Date End Date Name, MD Alex [address] [place] [address] PCP - General Family Medicine 01/10/16 documented as of this encounter
--- OUTSIDE RECORDS SUMMARY | 2025-06-27 12:50 | XMS_ITS | Encounter Summary ---
Author Organization [facility] Address [address] [facility] [address] [place] [address] Phone Care Team Providers Care Chemical Preparer Name Role Phone Name, Alex MONTANEZ Primary Care Provider Lkaesha Cruz PA-C Unavailable [phone] Reason for Referral * Outpatient Procedure - Closed Specialty Diagnoses / Procedures Referred By Ayanna t Referred To Contact Diagnoses TIA (transient ischemic attack) Cerebrovascular accident (CVA), unspecified mechanism Procedures Adult Echo TTE Elías Hernadez MD Phone: tel: fax: [email or web address] Referral ID Status Reason Start Date Expiration Date Visits Re quested Visits Authorized [id number] Closed 04/05/2019 06/06/2019 1 1 Encounter Details Date Type Department Care Team (Latest Contact Info) Description 03/31/2019 Transcribe Orders Virtual Department [address] [place] [address] Elías Hernadez MD [address] [place] [address], [address] [place], [place] [id number] [email or web address] TIA (transient ischemic attack) (Primary Dx); Cerebrovascular accident (CVA), unspecified mechanism Social History Tobacco Use Types Packs/Day Years [...] documented as of this encounter Results * TTE COMPREHENSIVE (04/09/2019 11:26 AM EDT) Body Surface Area 2.0 m2 Height 155 cm Weight 102 kg Systolic BP 128 mmHg Diastolic BP 58 mmHg Interventricular Septum Thickness 10 mm Left Ventricle Internal Diameter End Diastole 45 37 - 52 mm Left Ventricle Internal Diameter End Systole 31 22 - 35 mm Left Ventricular Outflow Tract Diameter 19.0 mm LVOT VTI REST 207 mm Left Ventricular Outflow Tract Velocity 0.7 m/s Left Ventricular Outflow Tract Gradient at Rest 2 mmHg Left Ventricular Posterior Wall Thickness 12 mm Ejection Fraction 60 50 - 75 Percent Left Atrium Dimension Anterior-Posterior 38 15 - 40 mm Aortic Valve Peak Velocity 96.4 cm/s Aortic Valve Peak Gradient 4 mmHg Aortic Sinus Diameter 29 mm Ascending Aorta Diameter 27 mm Inferior Vena Cava Diameter 21 0.0 - 21 mm Mitral Valve Deceleration Time 236 ms Mitral Valve A Wave Speed 71.0 cm/s Mitral Valve E Wave Speed 72.8 cm/s Right Ventricle Basal Diameter 28.6 25 - 41 mm Raw LV EF% 53 % Left Atrial Volume 67 mL Left Atrial Volume Index 33.50 mL/m2 Aortic Valve Sinus Index 1 15 19 - 27 mm Ascending Aorta Diameter 14 mm Aortic Sinus Index 15 mm Ascending Aorta Index 14 mm Anatomical Region Laterality Modality Heart Ultrasound Narrative 04/09/2019 11:41 AM EDT The study was technically difficult The predominant rhythm during the study was sinus. There is borderline concentric left ventricular hypertrophy. Left ventricular systolic function is normal. There are no segmental left ventricular wall motion abnormalities noted. The estimated ejection fraction is 60% (Normal 50-75%). No obvious valvular disease. Compared to a prior TTE from 08/22/2010 no important changes Left Ventricle Left ventricular cavity size is normal and the left ventricular wall thickness is increased. There is borderline concentric left ventricular hypertrophy. Left ventricular systolic function is normal. There are no segmental left ventricular wall motion abnormalities noted. The estimated ejection fraction is 60% (Normal 50- 75%). The left ventricular ejection fraction was measured by the bi-plane method of discs. Left ventricular diastolic function appears within normal limits for age. There is no evidence of left ventricular thrombus. Right Ventricle The right ventricular size is normal. No evidence of right ventricular hypertrophy. The right ventricular systolic function is normal. Left Atrium The left atrium is normal in size. The left atrial anterior-posterior dimension measures 38 mm (normal 15-40 mm). The LA volume is 67 mL. The LA volume index is 33.5 mL/m2 (normal indexed value is 16-34 mL/m2). The pulmonary venous flow profiles are normal. Pulmonary vein connections were not well seen. Right Atrium The right atrium is normal in size. The IVC is normal in size (2.1cm or less). The IVC measures 21 mm (normal <=21 mm). The IVC demonstrates normal collapse with inspiration which is consistent with normal RA pressure. Mitral Valve The mitral valve appears normal. The E/A ratio is 1.0. The Med E' Mark is 7.5 cm/s and the Lat E' Mark is 9 cm/s. The E/E' AVG is 8.9. There is no evidence of mitral stenosis. There is no significant mitral regurgitation detected by spectral and color Doppler. Tricuspid Valve The tricuspid valve appears normal. There is no evidence of tricuspid stenosis. There is evidence of trace tricuspid regurgitation by color and spectral Doppler. There is an insufficient tricuspid regurgitation Doppler profile to calculate a right ventricular systolic pressure. Aortic Valve The aortic valve was not well visualized. The aortic valve appears normal. The aortic valve is tricuspid. There is no evidence of valvular aortic stenosis. The peak aortic valve gradient is 4 mmHg. There is no evidence of aortic regurgitation by color and spectral Doppler. The visualized portions of the thoracic aorta appear normal. Pulmonic Valve Pulmonary valve was not well visualized. The pulmonary valve appears normal. There is no evidence of pulmonic stenosis. There is no evidence of pulmonary regurgitation by color and spectral Doppler. Pericardium There is no evidence of pericardial effusion. There no evidence of a pleural effusion. Interatrial Septum The interatrial septum appears normal. Interventricular Septum Interventricular septal motion appears normal. General Findings The study was technically difficult (4). Study quality explanation: obesity and body habitus. Technique(s) used in the evaluation: Color flow Doppler and Spectral Doppler. The predominant rhythm during the study was sinus. Comparison Findings Compared to a prior TTE from 08/22/2010 no important changes. us Elías Hernadez MD CV ECHO ORDERABLES Final Res ult documented in this encounter Visit Diagnoses Diagnosis TIA (transient ischemic attack)- Primary Unspecified transient cerebral ischemia Cerebrovascular accident (CVA), unspecified mechanism TIA (transient ischemic attack) Unspecified transient cerebral ischemia Cerebrovascular accident (CVA), unspecified mechanism documented in this encounter Additional Health Concerns Infection Onset Date Last Indicated Resolved Time CoV-Exposed Comment:Recent close contact documented in the Travel/Symptom Screening Form 10/03/2021 10/07/2021 10/18/2021 1:[address] CoV-Risk 12/08/2024 12/08/2024 12/19/2024 1:21 AM EDT documented as of this encounter Care Teams Chemical Preparer Relationship Specialty Start Date End Date Name, MD Alex [address] [place] [address] PCP - General Geriatric Psychiatry 10/02/17 Lakesha Cruz PA-C [address] [place] [address] [email or web address] Physician Deck Lid Fitter Hematology 01/05/22 documented as of this encounter Additional Source Comments The information contained in this document represents components of the legal health record. It is not the complete legal health record.[facility]
--- OUTSIDE RECORDS SUMMARY | 2025-06-27 12:50 | XMS_ITS | Encounter Summary ---
Author Organization [facility] Address [address] [place] [address] Phone Care Team Providers Care Funeral Pre Arrangement Specialist Name Role Phone Name, Alex MONTANEZ Primary Care Provider [phone] Lakesha Cruz PA-C Unavailable [phone] Encounter Details Date Type Department Care Team (Late st Contact Info) Description 01/27/2023 Procedure Pass [facility], Ct Scan - [facility] [address] [place] [address] Social History Tobacco Use Types Packs/Day Years Used Date Smoking Tobacco: Never Smokeless Tobacco: Never Alcohol Use Standard Drinks/Week Comments Yes 0 (1 standard drink = 0.6 oz pur e alcohol) 1 drink every 5 years Education Answer Date Recorded Are you interested in more education? Not on franci e 01/31/2023 Are you concerned about learning? Not on file 01/31/2023 No 01/31/2023 No 01/31/2023 Intimate Partner Violence Answer Date R ecorded Are you denied basic needs s uch as food, clothing, or medical care? No 01/27/2023 In the past 12 months have y ou been in a relationship with a person who hurts, threatens, or tries to control you? No 01/27/2023 Are you denied basic needs s uch as food, clothing, or medical care? No 01/27/2023 In the past 12 months have y ou been in a relationship with a person who hurts, threatens, or tries to control you? No 01/27/2023 Comments No Sex and Gender Information Value [...] documented as of this encounter Functional Status * Calculated C-SSRS Risk Score (Lifetime/Recent) Answer Date of Assessment Author No Risk Indicated 01/27/2023 7:03 PM EDT Norma Ferrara RN * [place] Suicide Severity Rating Scale (Screener/Recent Self-Report) Question Answer Date of Assessment Author 1. Wish to be (Past 1 Month) No 023 7:03 PM EDT Tiffanie Ferrara RN 2. Non-Specific Active Suici morteza Thoughts (Past 1 Month) No 01/27/2023 7:03 PM EDT Tiffanie Ferrara RN 6. Suicidal Behavior (Lifetime) No 7:03 PM EDT Tiffanie Ferrara RN documented as of this encounter Plan of Treatment Not on file documented as of this encounter Visit Diagnoses Not on filedocumented in this encounter Additional Health Concerns Infection Onset Date Last Indicated Resolved Time CoV-Risk 12/08/2024 12/08/2024 12/19/2024 1:21 AM EDT documented as of this encounter Care Teams Funeral Pre Arrangement Specialist Relationship Specialty Start Date End Date Name, MD Alex [address] [place] [address] PCP - General Geriatric Psychiatry 10/02/17 Lakesha Cruz PA-C [address] [place] [address] [email or web address] Physician Adhesive Bandage Machine Operator Hematology 01/05/22 documented as of this encounter Additional Source Comments The information contained in this document represents components of the legal health record. It is not the complete legal health record.[facility]
--- OUTSIDE RECORDS SUMMARY | 2025-06-27 12:50 | XMS_ITS | Encounter Summary ---
Author Organization [employer] Address [address] [place] [address] 7t [place] [address] Care Team Providers Care Hearing Aid Specialist Name Role Phone Name, Alex MONTANEZ Primary Care Provider [phone] Reason for Visit * Reason Onset Date Comments FYI 02/17/2025 Encounter Details Date Type Department Care Team ([facility] Contact Info) Description 02/17/2025 Telephone [facility] MEDICINE [address] [place], [place] [phone] Name, MD Alex [address] [place] [address] Social History Tobacco Use Types Packs/Day Years [...] encounter Miscellaneous Notes * Telephone Encounter - Baltazar Pak - 02/17/2025 10:17 AM EDT Tc from pt reporting received a call from facility and no message left and will like to know what was the call about , pt said if anyone calls an she don't answer please leave voicemail. documented in this encounter Plan of Treatment Not on file documented as of this encounter Visit Diagnoses Not on filedocumented in this encounter Additional Health Concerns Assessment Noted Time PHQ-9 Depression Total Score: 4 09/15/20 24 2:45 PM EST documented as of this encounter Care Teams Hearing Aid Specialist Relationship Specialty Start Date End Date Name, MD Alex [address] [place] [address] PCP - General Family Medicine 01/10/16 documented as of this encounter
--- OUTSIDE RECORDS SUMMARY | 2025-06-27 12:50 | XMS_ITS | Encounter Summary ---
Author Organization [facility] Address [address] [facility] [address] [place] [address] Phone Care Team Providers Care Byproducts Maker Name Role Phone Name, Alex MONTANEZ Primary Care Provider [phone] Lakesha Cruz PA-C Unavailable [phone] Encounter Details Date Type Department Care Team (Latest Contact Info) Description 03/31/2019 Transcribe Orders [facility] [address] [place] [address] Comfort Mccoy DO [address] [place] [address] [email or web address] Screening for unspecified condition (Primary Dx) Social History Tobacco Use Types [...] as of this encounter Visit Diagnoses Diagnosis Screening for unspecified condition- Primary documented in this encounter Additional Health Concerns Infection Onset Date Last Indicated Resolved Time CoV-Exposed Comment:Recent close contact documented in the Travel/Symptom Screening Form 10/03/2021 10/07/2021 10/18/2021 1:[address] CoV-Risk 12/08/2024 12/08/2024 12/19/2024 1:21 AM EDT documented as of this encounter Care Teams Byproducts Maker Relationship Specialty Start Date End Date Name, MD Alex [address] [place] [address] PCP - General Geriatric Psychiatry 10/02/17 Lakesha Cruz PA-C [address] [place] [address] [email or web address] Physician Impregnator Electrolytic Capacitors Hematology 01/05/22 documented as of this encounter Additional Source Comments The information contained in this document represents components of the legal health record. It is not the complete legal health record.[facility]
--- OUTSIDE RECORDS SUMMARY | 2025-06-27 12:50 | XMS_ITS | Encounter Summary ---
Author Organization [facility] Address [address] [place] [address] Phone Care Team Providers Care Entertainment Centre Manager Name Role Phone Name, Alex MONTANEZ Primary Care Provider [phone] Lakesha Cruz PA-C Unavailable [phone] Encounter Details Date Type Department Care Team (Late st Contact Info) Description 03/05/2018 Procedure Pass [facility], Ct Scan - [address] [address] Social History Tobacco Use Types Packs/Day Years [...] documented as of this encounter Care Teams Entertainment Centre Manager Relationship Specialty Start Date End Date Name, MD Alex [address] [place] [address] PCP - General Geriatric Psychiatry 10/02/17 Lakesha Cruz PA-C [address] [place] [address] [email or web address] Physician Sealer Sander Hematology 01/05/22 documented as of this encounter Additional Source Comments The information contained in this document represents components of the legal health record. It is not the complete legal health record.[facility]
--- OUTSIDE RECORDS SUMMARY | 2025-06-27 12:50 | XMS_ITS | Encounter Summary ---
Author Organization [employer] Address [address] [place] [address] 7t [place] [address] Care Team Providers Care Restaurant Maintenance Technician Name Role Phone Name, Alex MONTANEZ Primary Care Provider [phone] Reason for Visit * Reason Onset Date Comments Referral 04/03/2023 Encounter Details Date Type Department Care Team ([facility] st Contact Info) Description 04/03/2023 Telephone [facility] MEDICINE [address] [place], [place] [phone] Name, MD Alex [address] [place] [address] Referral Social History Tobacco Use Types Packs/Day Years [...] encounter Miscellaneous Notes * Telephone Encounter - Sonali Rae RN - 04/03/2023 2:58 PM EDT Sleep study was ordered by PCP today. Pt will be informed of status once processed. * Telephone Encounter - Paras Griffin - 04/03/2023 9:57 AM EDT Tc from pt requesting a sleep study referral. Please contact patient at [phone] documented in this encounter Plan of Treatment Not on file documented as of this encounter Visit Diagnoses Not on filedocumented in this encounter Care Teams Restaurant Maintenance Technician Relationship Specialty Start Date End Date Name, MD Alex [address] [place] [address] PCP - General Family Medicine 01/10/16 documented as of this encounter
--- OUTSIDE RECORDS SUMMARY | 2025-06-27 12:50 | XMS_ITS | Encounter Summary ---
Author Organization [facility] Address [address] [facility] [address] [place] [address] Phone Care Team Providers Care Fabrication Mig Welder Name Role Phone Name, Alex MONTANEZ Primary Care Provider [phone] Lakesha Cruz PA-C Unavailable [phone] Reason for Referral * MRI/CAT Scan - Closed Specialty Diagnoses / Procedures Referred By Ayanna calderon Referred To Contact Radiology Diagnoses Chronic nonintractable headache, unspecified headache type Procedures MRI Brain Elías Hernadez MD Phone: tel: fax: [email or web address] Referral ID Status Reason Start Date Expiration Date Visits Re quested Visits Authorized [id number] Closed 02/16/2019 04/18/2019 1 1 Encounter Details Date Type Department Care Team (Latest Contact Info) Description 02/03/2019 Transcribe Orders Virtual Department [address] [place] [address] Elías Hernadez MD [address] [place] [address], [address] [place] [address] [email or web address] Chronic nonintractable headache, unspecified headache type (Primary Dx); TIA (transient ischemic attack) Social History Tobacco Use Types Packs/Day Years [...] documented as of this encounter Results * MRI BRAIN WITHOUT CONTRAST (03/11/2019 8:37 AM EDT) Anatomical Region Laterality Modality Head Magnetic Resonan ce 03/11/2019 9:1 0 AM EDT Impressions 03/11/2019 9:14 AM EDT Incomplete examination. No gross large abnormalities identified in these limited images. No bill study. POS - [id number] Narrative 03/11/2019 9:14 AM EDT EXAM: MRI BRAIN WITHOUT CONTRAST COMPARISON: Head CT on October 28, 2018. TECHNIQUE: Exam performed on a 1.5 Jessica high-field MRI scanner. On the sagittal T1 sequences obtained. Patient was not able to tolerate further examination. FINDINGS: No large abnormalities identified on the obtained images. Procedure Note Sol Kearns MD - 03/11/2019 EXAM: MRI BRAIN WITHOUT CONTRAST COMPARISON: Head CT on October 28, 2018. TECHNIQUE: Exam performed on a 1.5 Jessica high-field MRI scanner. On thesagittal T1 sequences obtained. Patient was not able to tolerate furtherexamination. FINDINGS: No large abnormalities identified on the obtained images. IMPRESSION: Incomplete examination. No gross large abnormalities identified in theselimited images. No bill study. POS - [id number] us Eílas Hernadez MD IMG MR HEAD/NECK Final Resul t * US Carotid Duplex (Bilateral) (02/18/2019 12:44 PM EDT) Anatomical Region Laterality Modality Heart, Thoracic Vasculature, Neck Ultrasound 02/18/2019 12:4 5 PM EDT Impressions 02/18/2019 12:47 PM EDT Small amount of soft plaque in the carotid bulb on the right. No significant plaquing on the left. No significant internal carotid artery stenosis is seen. Vertebral arteries are patent with antegrade flow bilaterally. S/S: TIA, headaches POS - [id number] Narrative 02/18/2019 12:47 PM EDT The carotid circulation is visualized well with grayscale imaging, color flow imaging, and Doppler spectral analysis. On the right there is a small amount of soft plaque in the carotid bulb evident. On the left there is no significant plaquing evident. Both external carotid and vertebral arteries are patent bilaterally with antegrade flow. No internal carotid artery stenosis is seen on either side. The right internal carotid artery has a peak systolic velocity of 1.0 m/s with an end-diastolic velocity of 0.32 m/s. On the left the internal carotid artery has a peak systolic velocity of 1.3 m/s with an end-diastolic velocity of 0.40 m/s. Minimal spectral broadening is evident. Any stenosis measurement is relative to the distal ICA diameters. Procedure Note Uri Silva MD - 02/18/2019 The carotid circulation is visualized well with grayscale imaging, colorflow imaging, and Doppler spectral analysis. On the right there is asmall amount of soft plaque in the carotid bulb evident. On the leftthere is no significant plaquing evident. Both external carotid andvertebral arteries are patent bilaterally with antegrade flow. No internal carotid artery stenosis is seen on either side. The right internal carotid artery has a peak systolic velocity of 1.0 m/swith an end-diastolic velocity of 0.32 m/s. On the left the internalcarotid artery has a peak systolic velocity of 1.3 m/s with anend-diastolic velocity of 0.40 m/s. Minimal spectral broadening isevident. Any stenosis measurement is relative to the distal ICA diameters. IMPRESSION: Small amount of soft plaque in the carotid bulb on the right. Nosignificant plaquing on the left. No significant internal carotid arterystenosis is seen. Vertebral arteries are patent with antegrade flowbilaterally. S/S: TIA, headaches POS - [id number] Elías Hernadez MD CV US NEUROVASCULAR Final Re sult documented in this encounter Visit Diagnoses Diagnosis Chronic nonintractable headache, unspecified headache type- Primary TIA (transient ischemic attack) Unspecified transient cerebral ischemia TIA (transient ischemic attack) Unspecified transient cerebral ischemia Chronic nonintractable headache, unspecified headache type Chronic nonintractable headache, unspecified headache type documented in this encounter Additional Health Concerns Infection Onset Date Last Indicated Resolved Time CoV-Exposed Comment:Recent close contact documented in the Travel/Symptom Screening Form 10/03/2021 10/07/2021 10/18/2021 1:[address] CoV-Risk 12/08/2024 12/08/2024 12/19/2024 1:21 AM EDT documented as of this encounter Care Teams Fabrication Mig Welder Relationship Specialty Start Date End Date Name, MD Alex [address] [place] [place] [address] PCP - General Geriatric Psychiatry 10/02/17 Lakesha Cruz PA-C [address] [place] [address] Physician International Freight Forwarder Hematology 01/05/22 documented as of this encounter Additional Source Comments The information contained in this document represents components of the legal health record. It is not the complete legal health record.[facility]
--- OUTSIDE RECORDS SUMMARY | 2025-06-27 12:50 | XMS_ITS | Encounter Summary ---
Author Organization [facility] Address [address] [place] [address] Phone Care Team Providers Care Rfid Specialist Name Role Phone Name, Alex MONTANEZ Primary Care Provider [phone] Reason for Visit * Reason Comments Med Refill Encounter Details Date Type Department Care Team (Late Contact Info) Description 01/01/2023 Refill [facility] [address] [place] [phone] Elliott Jj MD Type 2 diabetes mellitus [...] Visit [facility] [address] [facility] [address] [place] [address] Norma Sandoval ARNP [address] [facility] [address] [place] [address] documented as of this encounter Visit Diagnoses Diagnosis Type 2 diabetes mellitus without complication (HCC) Hypertension documented in this encounter Care Teams Rfid Specialist Relationship Specialty Start Date End Date Name, MD Alex [address] [place] [id number] PCP - General 10/16/20 documented as of this encounter
--- OUTSIDE RECORDS SUMMARY | 2025-06-27 12:50 | XMS_ITS | Encounter Summary ---
Author Organization [facility] Address [address] [place] [address] [address] [place] [address] Care Team Providers Care Senior Wealth Advisor Name Role Phone Name, Alex MONTANEZ Primary Care Provider Reason for Visit * Reason Onset Date Comments Nurse Triage 05/07/2023 Encounter Details Date Type Department Care Team ([facility] st Contact Info) Description 05/07/[address] [facility] [address] [place], [place] [id number] Name, MD Alex [address] [place] [address] Nurse Triage Social History Tobacco Use Types [...] Telephone Encounter - Patricia Sharma RN - 05/07/2023 11:31 AM EDT Triage call Pt reports positive Covid home test 05/06/23. Pt symptoms are mild, light headedness, slight headache, body aches, nasal congestion, cough, tiredness. Pt reports slight tactile fever. Pt denies difficulty breathing. Home care reviewed with Pt thoroughly especially drinking extra liquids encouraged and [place] tele visit number is given [phone]. Pt had no further questions. Pt agreed with disposition and will call if any other needs or concerns. Protocol Used: COVID-19 - Diagnosed or Suspected (Adult) Protocol-Based Disposition: Home Care Positive Triage Question: * [1] COVID-19 diagnosed by positive lab test (e.g., PCR, rapid self-test kit) AND [2] mild symptoms (e.g., cough, fever, others) AND [3] no complications or SOB * All higher-acuity triage questions were negative Care Advice Discussed: * Reassurance and Education - Positive COVID-19 Lab Test and Mild Symptoms * General Care Advice for COVID-19 Symptoms * Cough Medicines * Humidifier * Coughing Spells * Pain and Fever Medicines * Reasons To Call Back - Fever over 103 F (39.4 C) - Fever lasts over 3 days - Fever returns after being gone for 24 hours - Chest pain or difficulty breathing occurs - You become worse * Clean Your Hands Often * COVID-19 - How to Protect Others - When You Are Sick With COVID-19 * Telephone Encounter - Macarena Briggs - 05/07/2023 11:07 AM EDT Symptoms: COVID-19 Exposure, Fever, Cough Outcome: Schedule a same-day appointment or talk to a nurse or provider today Reason: requesting medication for COVID-19 The caller accepted this outcome Please contact pt at [phone] documented in this encounter Plan of Treatment Not on file documented as of this encounter Visit Diagnoses Not on filedocumented in this encounter Care Teams Senior Wealth Advisor Relationship Specialty Start Date End Date Name, MD Alex [address] [place] [address] PCP - General Family Medicine 01/10/16 documented as of this encounter
--- OUTSIDE RECORDS SUMMARY | 2025-06-27 12:50 | XMS_ITS | Encounter Summary ---
Author Organization [facility] Address [address] [facility] [address] [place] [id number] Phone Care Team Providers Care Apparatus Repair Mechanic Name Role Phone Name, Alex MONTANEZ Primary Care Provider [phone] Lakesha Cruz PA-C Unavailable Encounter Details Date Type Department Care Team (Latest Contact Info) Description 05/19/2020 Transcribe Orders [facility] [address] [place] [address] [place] [address] Name, MD Alex [address] [place], [place] [phone] Vitamin B12 deficiency anemia due to intrinsic factor deficiency (Primary Dx); Essential (primary) hypertension; Chronic kidney disease, stage III (moderate); Other fatigue; Hypothyroidism, unspecified type; Vitamin D deficiency, unspecified; Personal history of TIA (transient ischemic attack) Social History Tobacco [...] documented as of this encounter Results * Folate (05/19/2020 11:02 AM EDT) FOLIC ACID 8.4 4.2 - 19.9 ng/mL [facility] Blood 05/19/2020 11:0 2 AM EDT 05/19/2020 11:05 AM EDT us Alex Veras MD LAB BLOOD ORDERABLES Final Resul t Performing Organization Address City/[facility]/ZIP Co de Phone Number [address] [address] * (ABNORMAL) Vitamin B12 (05/19/2020 11:02 AM EDT) VITAMIN B12 >2000(H) 232 - 1245 pg/mL [facility] Blood 05/19/2020 11:0 2 AM EDT 05/19/2020 11:05 AM EDT us Alex Veras MD LAB BLOOD ORDERABLES Final Resul t Performing Organization Address [facility]/ZIP Co de Phone Number [address] [address] * 25-OH vitamin D (05/19/2020 11:02 AM EDT) 25 [place] VIT D (TOTAL) 31 30 - 60 ng/mL [facility] Blood 05/19/2020 11:0 2 AM EDT 05/19/2020 11:05 AM EDT us Alex Veras MD LAB BLOOD ORDERABLES Final Resul t Performing Organization Address [facility]/ZIP Co de Phone Number [address] [address] * (ABNORMAL) Lipid panel (05/19/2020 11:02 AM EDT) HDL 58 mg/dL [facility] Comment: Interpretation <40 mg/dL: Low HDL cholesterol (major risk factor for CHD) Greater than or equal to 60 mg/dL: High HDL cholesterol ( negative risk factor for CHD) HDL - cholesterol is affected by a number of factors, e.g. smoking, excerise, hormones, sex and age. CHOLESTEROL 164 0 - 240 mg/dL [facility] TRIGLYCERIDES 111 30 - 160 mg/dL [facility] LDL 84 50 - 129 mg/dL [facility] Comment: LDL levels in terms of risk for coronary heart disease: <100 mg/dL: Optimal 100-129 mg/dL: Near or above optimal 130-159 mg/dL: Borderline high 160-189 mg/dL: High >190 mg/dL: Very High CARDIAC RISK RATIO 2.8(L) 3.3 - 4.4 C [facility] Blood 05/19/2020 11:0 2 AM EDT 05/19/2020 11:05 AM EDT us Alex Veras MD LAB BLOOD ORDERABLES Final Resul t Performing Organization Address City/[facility]/ZIP Co de Phone Number [address] [address] * (ABNORMAL) Hemoglobin A1c (05/19/2020 11:02 AM EDT) HEMOGLOBIN A1C 8.8(H) 4.3 - 5.8 % [facility] Blood 05/19/2020 11:0 2 AM EDT 05/19/2020 11:05 AM EDT us Alex Veras MD LAB BLOOD ORDERABLES Final Resul t [address] [address] * TSH with reflex (05/19/2020 11:02 AM EDT) TSH 2.61 0.27 - 4.20 uIU/mL [facility] Blood 05/19/2020 11:0 2 AM EDT 05/19/2020 11:05 AM EDT us Alex Veras MD LAB BLOOD ORDERABLES Final Resul t Performing Organization Address [facility] Co de Phone Number [address] [address] * (ABNORMAL) CBC (05/19/2020 11:02 AM EDT) WBC 6.01 4.00 - 11.00 K/uL [facility] Comment:Note Reference Range updates to all CBC and Differential results. RBC 3.66(L) 3.72 - 5.30 M/uL [facility] HGB 10.6(L) 11.4 - 15.9 g/dL [facility] Comment:Note updated Referen ce Ranges for all CBC and Differential results. HCT 32.7(L) 34.2 - 46.8 % [facility] PLT 233 140 - 430 K/uL [facility] MCV 89.3 78.0 - 97.0 fL [facility] MCH 29.0 25.0 - 33.0 pg [facility] MCHC 32.4 32.0 - 36.0 g/dL [facility] RDW 12.7 11.0 - 16.0 % [facility] MPV 10.8 8.4 - 12.8 fl [facility] NRBC 0.00 0 /100 WBCs [facility] ABSOLUTE NRBC 0.00 0 K/uL [facility] Blood 05/19/2020 11:0 2 AM EDT 05/19/2020 11:05 AM EDT Alex Veras MD LAB BLOOD ORDERABLES Final Resul t Performing Organization Address [facility]/ZIP Co de Phone Number [address] [address] * (ABNORMAL) Basic metabolic panel (05/19/2020 11:02 AM EDT) Pathologist [facility] SODIUM 137 133 - 146 mmol/L [facility] CHLORIDE 95(L) 96 - 108 mmol/L [facility] POTASSIUM 3.2(L) 3.3 - 5.1 mmol/L [facility] CO2 26 21 - 35 mmol/L [facility] BUN 61(H) 6 - 19 mg/dL [facility] CREATININE 2.60(H) 0.5 - 1.5 mg/dL [facility] GLUCOSE 253(H) 70 - 99 mg/dL [facility] CALCIUM 9.3 8.4 - 10.3 mg/dL [facility] EGFR 18(L) >59 mL/min/1.7 3m2 [facility] Comment:Estimated glomerular filtration rate calculated using the CKD-EPI equation. ANION GAP 19 10 - 20 mmol/L [facility] Blood 05/19/2020 11:0 2 AM EDT 05/19/2020 11:05 AM EDT us Alex Veras MD LAB BLOOD ORDERABLES Final Resul t [address] [address] documented in this encounter Visit Diagnoses Diagnosis Vitamin B12 deficiency anemia due to intrinsic factor deficiency- Primary Pernicious anemia Essential (primary) hypertension Unspecified essential hypertension Chronic kidney disease, stage III (moderate) Chronic kidney disease, Stage III (moderate) Other fatigue Hypothyroidism, unspecified type Vitamin D deficiency, unspecified Personal history of TIA (transient ischemic attack) Transient ischemic attack (TIA), and cerebral infarction without residual deficits documented in this encounter Additional Health Concerns Infection Onset Date Last Indicated Resolved Time CoV-Exposed Comment:Recent close contact documented in the Travel/Symptom Screening Form 10/03/2021 10/07/2021 10/18/2021 1:[address] CoV-Risk 12/08/2024 12/08/2024 12/19/2024 1:21 AM EDT documented as of this encounter Care Teams Apparatus Repair Mechanic Relationship Specialty Start Date End Date Name, MD Alex [address] [place] [id number] PCP - General Geriatric Psychiatry 10/02/17 Lakesha Cruz PA-C [address] [place] [address] Physician Service And Repair Supervisor Hematology 01/05/22 documented as of this encounter Additional Source Comments The information contained in this document represents components of the legal health record. It is not the complete legal health record.[facility]
--- OUTSIDE RECORDS SUMMARY | 2025-06-27 12:51 | XMS_ITS | Clinical Summary ---
Author Organization [facility] Address [email or web address] [facility] [address] [place] [phone] Phone Care Team Providers Care Vp Securities Name Role Phone Name, Alex MONTANEZ Primary Care Provider [phone] Lakesha Cruz PA-C Unavailable [phone] Allergies Active Allergy Reactions Criticality Noted Date Comments Acyclovir 01/01/2022 Amitriptyline Palpitations Medium 08/25/2017 Beta-Blockers (Beta-Adrenergic Blocking Agts) Nausea and/or Vomiting,Nausea And Vomiting High 08/25/2017 Prochlorperazine Edisylate Nausea and/or Vomiting High 08/25/2017 Dichloralphenazone 02/05/2016 Other reaction(s): Nausea / Vomiting Ergotamine Tartrate Nausea and/or Vomiting High 08/25/2017 Ergotamine-Caffeine 05/03/2021 Other reaction(s): Other (see comments) Sumatriptan Succinate 08/25/2017 Propranolol Nausea and/or Vomiting High 08/25/2017 Isometheptene 02/05/2016 Other reaction(s): Nausea / Vomiting Metoclopramide 01/01/2022 Midodrine 01/01/2022 Bemrmwh-Igflrawiw-Gdkrqqxh ophn Nausea and/or Vomiting High 08/25/2017 Morphine Palpitations High 08/25/2017 Other Nausea And Vomiting High 08/25/2017 Promethazine Nausea and/or Vomiting High 08/25/2017 Sumatriptan Nausea and/or Vomiting 08/25/2017 Medications aspirin 81 MG EC tablet Take 81 mg by mouth daily. Active atorvastatin (LIPITOR) 10 MG tablet Take 10 mg by mouth nightly at bedtime. Active citalopram (CELEXA) 20 MG tablet Take 40 mg by mouth nightly at bedtime. Active fluticasone (FLOVENT HFA) 110 mcg/actuation inhaler Inhale 1 puff into the lungs 2 (two) times a day as needed. Active amLODIPine (NORVASC) 10 MG tablet Take 10 mg by mouth daily. Active ondansetron (ZOFRAN-ODT) 4 MG disintegrating tablet Take 4 mg by mouth every 8 (eight) hours as needed for nausea. Active albuterol 90 mcg/actuation inhaler Inhale 2 puffs into the lungs every 4 (four) hours. 1 Inhaler 10/05/20 17 Active cyanocobalamin (VITAMIN B-12) 1,000 mcg/mL injection INJECT 1ml INTRAMUSCULARLY EVERY MONTH 11 01/01/20 19 Active levothyroxine (SYNTHROID, LEVOTHROID) 112 MCG tablet Take 112 mcg by mouth every morning. 3 Active cetirizine (ZYRTEC) 10 MG tablet Take 10 mg by mouth daily. Active hydrALAZINE (APRESOLINE) 10 MG tablet Take 10 mg by mouth 2 (two) times a day. Active TRULICITY 1.5 mg/0.5 mL subcutaneous injection INJECT 1/2 (ONE-HALF) ML SUBCUTANEOUSLY ONCE A WEEK IN THE ABDOMEN, THIGH OR UPPER ARM ROTATING INJECTION SITES 11/22/19 23 Active FARXIGA 10 mg tablet Take 10 mg by mouth daily. Active LINZESS 72 mcg capsule Take 72 mcg by mouth daily as needed. 01/13/20 24 Active ascorbic acid, vitamin C, (VITAMIN C) 500 mg Chew Take 500 mg by mouth nightly at bedtime. Active calcitriol (ROCALTROL) 0.25 MCG capsule Take 0.25 mcg by mouth daily. 05/02/20 25 Active bimatoprost (LUMIGAN) 0.01 % Drop Place 1 drop into each eye nightly at bedtime. Active losartan (COZAAR) 25 MG tablet Take 25 mg by mouth daily. 11/30/19 25 026 Active chlorthalidone (HYGROTON) 50 MG tablet Take 50 mg by mouth daily. 05/02/20 25 Active cholecalciferol (VITAMIN D3) 2,000 unit tablet Take 1 tablet by mouth every morning. 01/14/20 25 Active Active Problems Patient Care Coordination No te Formatting of this note migh t be different from the original. Height 155.6cm no shoes 10/29 Problem Noted Date Diagnosed Date Back pain 05/24/2025 Assessment & Plan (05/24/2025 12:44 AM EDT): Patient states that she frequently has back pain. Usually starts with pain and progresses to feeling stiff and then she starts getting spasms. This time she started with spasms so she felt she needed to come to the emergency department for medications. Back pain resolved with 1 dose of Toradol. Elevated d-dimer 05/23/2025 Assessment & Plan (05/24/2025 12:44 AM EDT): History of right lower lobe pulmonary embolism in 2016 due to sedentary lifestyle. Still has a sedentary lifestyle. D-dimer elevated. ED discussed the case with nephrology about possibly pretreating and doing a CTA chest. They wished to pursue VQ scan instead. This will be ordered for the morning. I gave a dose of therapeutic Lovenox empirically. Pretest probability is low and if VQ scan is indeterminant or low risk I would say she could be discharged without anticoagulation given her history of subarachnoid bleed in 2016 History of subarachnoid hemorrhage 05/23/2025 Assessment & Plan (05/24/2025 12:44 AM EDT): Had a spontaneous subarachnoid hemorrhage shortly after anticoagulation for pulmonary embolism in 2015. Had 2 angiograms with no source of bleeding. She was able to resume anticoagulation until completion in April 2016. Secondary hyperparathyroidism of renal origin Stage 4 chronic kidney disease 12/13/2022 Assessment & Plan (05/24/2025 12:44 AM EDT): Renal function stable. Avoid nephrotoxic medications. BPPV (benign paroxysmal positional vertigo) 07/07 Seasonal allergies 04/01/2019 History of pulmonary embolism 08/24/2017 Assessment & Plan (07/27/2019 5:17 PM EDT): History of PE, previously on Coumadin which was discontinued in 06/2018. No concerning symptoms at the time of presentation. Denies shortness of breath. No tachycardia or hypoxia. No indication for further testing. Iron deficiency anemia secon levi to inadequate dietary iron intake 08/24/2017 Essential hypertension 07/03/2015 Assessment & Plan (07/27/2019 5:21 PM EDT): Blood pressure on arrival 149/66. Home medical regimen continued. -Amlodipine 10 mg daily -Chlorthalidone 12.5 mg daily -Lisinopril 10 mg daily Obstructive sleep apnea syndrome 07/03/2015 Obesity 07/03/2015 No blood products Overview (05/24/2025): Confucianist Type 2 diabetes mellitus with complication Overview (05/24/2025): With CKD stage 4 Assessment & Plan (05/24/2025 12:44 AM EDT): Will continue home medications. Will have as needed lispro. Resolved Problems Problem Noted Date Diagnosed Date Resolved Date Closed fracture of wrist, le ft, with routine healing, subsequent encounter 01/11/2019 05/23/2025 Vaginal spotting 08/25/2017 05/23/2025 B12 deficiency 08/24/2017 05/23/2025 Encounters Date Type Department Care Team Description 06/20/2025 11:41 AM EDT - 06/20/2025 11:59 PM EDT Hospital Encounter [facility] [address] [place] [address] [place] [address] Discharge Disposition: Home or Self Care 05/23/2025 7:36 PM EDT - 05/24/2025 4:54 PM EDT Hospital Encounter [facility] Tele[facility] [address] [place] [address] Apolinar Mckenzie, DO Discharge Disposition: Home or Self Care 05/07/2025 1:57 AM EDT - 05/07/2025 9:06 AM EDT Emergency [facility] Emergency [address] [place] [address] Kimberlyn Lai MD Discharge Disposition: Home or Self Care 05/03/2025 11:03 AM EDT - 05/03/2025 2:09 PM EDT Emergency [facility] Emergency [address] [place] [address] Kal Humphrey MD, NIKOLAI Discharge Disposition: Home or Self Care 03/31/2025 Orders Only Located Within [facility] [address] [place] [address] Lakesha Cruz, PAEvelynC 03/28/2025 8:46 AM EDT - 03/28/2025 11:59 PM EDT Hospital Encounter [facility] [address] [place] [address] Norma Sandoval, DONNELL Discharge Disposition: Home or Self Care from Last 3 Months Immunizations Immunization Administration Dates Next Due COVID-19 (Pre-07/28) Moderna Vaccine, mRNA, PF 12/19/2020 Hepatitis A, Adult 07/22/2018 Influenza High-Dose Quadriva lent Preservative Free IM 07/01/2023,06/18/2022,06/27/2021,10/21 Influenza High-Dose Trivalen t Preservative Free IM 06/25/2019,07/03/2018 Influenza Quadrivalent Prese rvative Free IM 07/03/2015 Influenza Quadrivalent w/ Pr eservative IM 07/04/2017,07/18/2016 Influenza, Unspecified Formulation 06/18/2022,,10/21/2020 Pneumococcal conjugate PCV13 07/28/2019(),2017,07/14/2015 Pneumococcal conjugate PCV20 06/18/2022 Pneumococcal polysaccharide PPSV23 11/04/2016 RSV Vaccine (monovalent, adjuvanted) 05/25/2023 Tdap 10/21/2020,11/04/2016 Family History Medical History Relation Comments Pancreatitis Father Schizophrenia Father Cancer Maternal Grandfather Diabetes mellitus Mother Hypertension Mother Asthma Sister Heart disease Sister Hypertension Sister Stroke Sister Relation Status Comments Father Maternal Grandfather Mother Alive Sister Alive Social History Tobacco Use Types Packs/Day Years [...] on file 01/31/2023 No 01/31/2023 No 01/31/2023 Food Answer Date Recorded Within the past 6 months we worried whether our food would run out before we got money to buy more. Never True 05/07/2025 Within the past 6 months the food we bought just didn't last and we didn't have enough money to get more. Never True Residential Stability Answer Date Recor ded What is your housing situation today? I have jayy sing 05/07/2025 How many times have you move d in the past 12 months? Zero (I did not move) 05/07/2025 Paying for Meds Answer Date Recorded Do you have trouble paying for medicines? No 05/07/2025 Paying Utility Bills Answer Date Record ed Do you have trouble paying your heating or elect ricity bill? No 05/07/2025 Transportation Answer Date Recorded Has the lack of transportati on kept you from medical appointments or from getting medications? No 05/07/2025 Digital Access Answer Date Recorded No 05/07/2025 Yes 05/07/2025 Do you have reliable internet access at home? Ye s 05/07/2025 Do you have a device (e.g., phone, tablet, computer) with a working camera? Yes 05/07/2025 Intimate Partner Violence Answer Date R ecorded Are you denied basic needs s uch as food, clothing, or medical care? No 05/23/2025 In the past 12 months have y ou been in a relationship with a person who hurts, threatens, or tries to control you? No 05/23/2025 Are you denied basic needs s uch as food, clothing, or medical care? No 05/23/2025 In the past 12 months have y ou been in a relationship with a person who hurts, threatens, or tries to control you? No 05/23/2025 Comments No Sex and Gender Information Value Date Recorded Sex Assigned at Female 03/05/2018 8:20 PM EDT Legal Sex Female 10:00 PM EDT Gender Identity Female 03/05/2018 8:20 PM EDT Sexual Orientation Straight 03/05/2018 8: 20 PM EDT Occupation Industry Job Start Date Job End Date Disabled, retired Not on file Not on file Not on franci e Last Filed Vital Signs Vital Sign Reading Time Taken Comments Blood Pressure 121/63 05/24/2025 3:50 PM EDT Pulse 57 05/24/2025 3:50 PM EDT Temperature 36.9 C (98.4 F) 05/24/2025 3:50 PM EDT Respiratory Rate 18 05/24/2025 3:50 PM EDT Oxygen Saturation 98% 05/24/2025 3:50 PM EDT Inhaled Oxygen Concentration - - Weight 82.2 kg (181 lb 3.5 oz) 05/24/2025 1:22 A M EDT Height 157.5 cm (5' 2 ) 05/24/2025 1:22 AM EDT Body Mass Index 33.15 05/24/2025 1:22 AM EDT Plan of Treatment Health Maintenance Due Date Last Done Comments DEPRESSION SCREENING 1963 HEPATITIS C SCREENING 1969 COLOGUARD 1996 COLONOSCOPY 1996 COLORECTAL CANCER SCREENING 1996 FIT TEST 1996 FOBT 1996 SIGMOIDOSCOPY 1996 VIRTUAL COLONOSCOPY 1996 ZOSTER VACCINES (1 of 2) 2001 OSTEOPOROSIS SCREENING INITIAL (ONE-TIME) 2016 DIABETIC EYE EXAM 10/22/2017 MAMMOGRAM 05/22/2020 05/22/2018 TSH LEVEL 06/14/2021 06/14/2020, 05/06, 07/27/2019 INFLUENZA VACCINE (#1) 2025 , 07/01/2023, 06/18/2022, Additional history exists COVID-19 VACCINE ( season) 2025 09/15/2024, 07/29/2022, 01/13/2022, Additional history exists BLOOD PRESSURE 07/26/2025 01/24/2025 HEMOGLOBIN A1C 07/28/2025 04/27/2025, 09/05, 11/11/2023, Additional history exists CREATININE LEVEL 06/20/2026 06/20/2025, , 05/23/2025, Additional history exists POTASSIUM LEVEL 06/20/2026 06/20/2025, 05/06, 05/23/2025, Additional history exists Adult Td,Tdap Booster 10/21/2030 10/21/2020, 017 HEPATITIS A VACCINES Aged Out 07/22/2018 No long er eligible based on patient's age to complete this topic PNEUMOCOCCAL VACCINES (50+ years) Completed 06/18/2022, 04/24/2018, 11/04/2016, Additional history exists RSV VACCINE Completed 05/25/2023 SMOKING STATUS SCREENING (Once After 26 Yrs) Completed 01/24/2025 HIB VACCINES Aged Out No longer eligi ble based on patient's age to complete this topic MENINGOCOCCAL VACCINES (ACWY) Aged Out No longer eligible based on patient's age to complete this topic MENINGOCOCCAL VACCINES (B) Aged Out N o longer eligible based on patient's age to complete this topic Medical Devices Not on file Procedures Procedure Name Priority Date/Time Associated Diagnosis Comments TOTAL PROTEIN, RANDOM URINE Routine 06/20/2025 12:27 PM EDT MICROALBUMIN/CREAT ININE RATIO, RANDOM URINE Routine 06/20/2025 12:27 PM EDT Chronic kidney disease, stage IV (severe) Essential hypertension, malignant Anemia of chronic renal failure, unspecified CKD stage Secondary hyperparathyroidism of renal origin PARATHYROID HORMONE (PTH) Routine 06/20/2025 11:58 AM EDT Chronic kidney disease, stage IV (severe) Essential hypertension, malignant Anemia of chronic renal failure, unspecified CKD stage Secondary hyperparathyroidism of renal origin RENAL PANEL Routine 06/20/2025 11:58 AM EDT Chronic kidney disease, stage IV (severe) Essential hypertension, malignant Anemia of chronic renal failure, unspecified CKD stage Secondary hyperparathyroidism of renal origin CBC Routine 06/20/2025 11:58 AM EDT Chronic kidney disease, stage IV (severe) Essential hypertension, malignant Anemia of chronic renal failure, unspecified CKD stage Secondary hyperparathyroidism of renal origin FERRITIN Routine 06/20/2025 11:58 AM EDT Chronic kidney disease, stage IV (severe) Essential hypertension, malignant Anemia of chronic renal failure, unspecified CKD stage Secondary hyperparathyroidism of renal origin IRON AND IRON BINDING CAPACITY Routine 06/20/2025 11:58 AM EDT Chronic kidney disease, stage IV (severe) Essential hypertension, malignant Anemia of chronic renal failure, unspecified CKD stage Secondary hyperparathyroidism of renal origin POCT GLUCOSE Routine 05/24/2025 12:38 PM EDT NM LUNG PERFUSION IMAGING Imaging within next 12 hours 05/24/2025 12:25 PM EDT XR CHEST PA AND LATERAL 2 VIEWS Routine 05/24/2025 12:23 PM EDT POCT GLUCOSE Routine 05/24/2025 7:23 AM EDT CBC Routine 05/24/2025 5:24 AM EDT PHOSPHORUS Routine 05/24/2025 5:24 AM EDT MAGNESIUM Routine 05/24/2025 5:24 AM EDT BASIC METABOLIC PANEL Routine 05/24/2025 5:24 AM EDT TROPONIN STAT 05/23/2025 9:36 PM EDT D-DIMER STAT 05/23/2025 9:36 PM EDT XR CHEST PA AND LATERAL 2 VIEWS Routine 05/23/2025 8:59 PM EDT NT-PROBNP Routine 05/23/2025 8:47 PM EDT TROPONIN STAT 05/23/2025 8:47 PM EDT LFTS (HEPATIC PANEL) STAT 05/23/2025 8:47 PM EDT BASIC METABOLIC PANEL STAT 05/23/2025 8:47 PM EDT CBC AND DIFFERENTIAL STAT 05/23/2025 8:47 PM EDT TROPONIN STAT 05/07/2025 6:23 AM EDT TROPONIN STAT 05/07/2025 5:09 AM EDT BASIC METABOLIC PANEL STAT 05/07/2025 5:09 AM EDT CBC AND DIFFERENTIAL STAT 05/07/2025 5:09 AM EDT POCT GLUCOSE Routine 05/06/2025 9:15 PM EDT ECG 12-LEAD STAT 05/06/2025 9:11 PM EDT URIC ACID STAT 05/03/2025 12:56 PM EDT XR FOOT 3 OR MORE VIEWS (LEFT) Routine 05/03/2025 12:13 PM EDT MICROALBUMIN, URINE Routine 03/28/2025 9:36 AM EDT MICROALBUMIN/CREAT ININE, RANDOM URINE Routine 03/28/2025 9:36 AM EDT TOTAL PROTEIN CREATININE RATIO, RANDOM URINE Routine 03/28/2025 9:36 AM EDT Chronic kidney disease, stage IV (severe) Essential hypertension, malignant Anemia of chronic renal failure, unspecified CKD stage Secondary hyperparathyroidism of renal origin CBC AND DIFFERENTIAL Routine 03/28/2025 9:24 AM EDT Iron deficiency anemia secondary to inadequate dietary iron intake B12 deficiency FOLATE Routine 03/28/2025 9:24 AM EDT Iron deficiency anemia secondary to inadequate dietary iron intake B12 deficiency VITAMIN B12 Routine 03/28/2025 9:24 AM EDT B12 deficiency PARATHYROID HORMONE (PTH) Routine 03/28/2025 9:24 AM EDT Chronic kidney disease, stage IV (severe) Essential hypertension, malignant Anemia of chronic renal failure, unspecified CKD stage Secondary hyperparathyroidism of renal origin RENAL PANEL Routine 03/28/2025 9:24 AM EDT Chronic kidney disease, stage IV (severe) Essential hypertension, malignant Anemia of chronic renal failure, unspecified CKD stage Secondary hyperparathyroidism of renal origin FERRITIN Routine 03/28/2025 9:24 AM EDT Chronic kidney disease, stage IV (severe) Essential hypertension, malignant Anemia of chronic renal failure, unspecified CKD stage Secondary hyperparathyroidism of renal origin IRON AND IRON BINDING CAPACITY Routine 03/28/2025 9:24 AM EDT Chronic kidney disease, stage IV (severe) Essential hypertension, malignant Anemia of chronic renal failure, unspecified CKD stage Secondary hyperparathyroidism of renal origin TSH WITH REFLEX Routine 06/14/2020 2:11 PM EDT Fatigue, unspecified type HEMOGLOBIN A1C Routine 05/19/2020 11:02 AM EDT Vitamin B12 deficiency anemia due to intrinsic factor deficiency Essential (primary) hypertension Chronic kidney disease, stage III (moderate) Other fatigue Hypothyroidism, unspecified type Vitamin D deficiency, unspecified Personal history of TIA (transient ischemic attack) from Last 3 Months or Most Recently Relevant to Health Maintenance Results * (ABNORMAL) Microalbumin/creatinine ratio, random urine (06/20/2025 12:27 PM EDT) URINE MICROALBUMIN 38.0(H) 0 - 2.3 mg/dL [facility] URINE CREATININE 108 mg/dL [employer] [facility] MICROALB/CRE RATIO 351.9(H) 0 - 20 mg/g Cre [facility] Urine (Urine) 06/20/2025 12: 27 PM EDT 06/20/2025 12:29 PM EDT us Norma Sandoval [employer] HEAD URINE ORDERABLES Final Resu lt [address] [address] * Total protein, random urine (06/20/2025 12:27 PM EDT) URINE TOTAL PROTEIN 65.0 mg/dL [facility] 06/20/2025 12:2 7 PM EDT 06/20/2025 12:29 PM EDT Norma Sandoval PRODUCT SAFET[employer] HEAD URINE ORDERABLES Final Resu lt Performing Organization Address City/[facility]/ZIP Co de Phone Number [address] [address] * (ABNORMAL) Renal panel (06/20/2025 11:58 AM EDT) Only the most recent of2 resultswithin the time period is included. SODIUM 140 133 - 146 mmol/L [facility] POTASSIUM 4.8 3.3 - 5.1 mmol/L [facility] CHLORIDE 107 96 - 108 mmol/L [facility] CO2 23 21 - 35 mmol/L [facility] GLUCOSE 170(H) 70 - 99 mg/dL [facility] BUN 40(H) 6 - 19 mg/dL [facility] CREATININE 2.70(H) 0.5 - 1.5 mg/dL [facility] CALCIUM 9.0 8.4 - 10.3 mg/dL [facility] PHOSPHORUS 4.0 2.7 - 4.5 mg/dL [facility] ALBUMIN 3.7(L) 3.9 - 4.8 g/dL [facility] EGFR 18(L) >59 mL/min/1.7 3m2 [facility] Comment:Estimated glomerular filtration rate calculated using the CKD-EPI refit equation. ANION GAP 15 10 - 20 mmol/L [facility] Blood 06/20/2025 11:5 8 AM EDT 06/20/2025 12:02 PM EDT Norma Sandoval [employer] LAB BLOOD ORDERABLES Final Result Performing Organization Address [facility] Co de Phone Number [address] [address] * Iron and iron binding capacity (06/20/2025 11:58 AM EDT) Only the most recent of2 resultswithin the time period is included. IRON 41 30 - 160 ug/dL [facility] IRON BINDING CAPACITY 241 228 - 428 ug/dL [facility] TRANSFERRIN SATURAT. 17 15 - 50 % [facility] Blood 06/20/2025 11:5 8 AM EDT 06/20/2025 12:02 PM EDT Norma Sandoval LAB BLOOD ORDERABLES Final Result Performing Organization Address [facility] Co de Phone Number [address] [address] * (ABNORMAL) CBC (06/20/2025 11:58 AM EDT) Only the most recent of2 resultswithin the time period is included. WBC 5.30 4.00 - 11.00 K/uL [facility] RBC 3.44(L) 4.00 - 5.20 M/uL [facility] HGB 10.6(L) 12.0 - 16.0 g/dL [facility] HCT 34.3(L) 36.0 - 46.0 % [facility] PLT 195 150 - 450 K/uL [facility] MCV 99.7 80.0 - 100.0 fL [facility] MCH 30.8 27.0 - 31.0 pg [facility] MCHC 30.9(L) 32.0 - 36.0 g/dL [facility] RDW 13.2 11.5 - 14.5 % [facility] MPV 10.6 8.4 - 12.0 fL [facility] NRBC 0.00 0.00 /100 WBCs [facility] ABSOLUTE NRBC 0.00 0.00 K/uL [facility] Blood 06/20/2025 11:5 8 AM EDT 06/20/2025 12:02 PM EDT us Norma Sandoval [employer] LAB BLOOD ORDERABLES Final Result Performing Organization Address [facility]/ZIP Co de Phone Number [address] [address] * (ABNORMAL) Parathyroid hormone (PTH) (06/20/2025 11:58 AM EDT) Only the most recent of2 resultswithin the time period is included. PARATHYROID HORMONE 170(H) 15 - 65 pg/mL [facility] Blood 06/20/2025 11:5 8 AM EDT 06/20/2025 12:02 PM EDT us Norma Sandoval [employer] LAB BLOOD ORDERABLES Final Result Performing Organization Address [facility] Co de Phone Number [address] [address] * (ABNORMAL) Ferritin (06/20/2025 11:58 AM EDT) Only the most recent of2 resultswithin the time period is included. FERRITIN 190(H) 13 - 150 ug/L [facility] Blood 06/20/2025 11:5 8 AM EDT 06/20/2025 12:02 PM EDT us Norma Sandoval [employer] LAB BLOOD ORDERABLES Final Result Performing Organization Address [facility] Co de Phone Number [address] [address] * POCT Glucose (05/24/2025 12:38 PM EDT) Only the most recent of3 resultswithin the time period is included. Glucose, POCT 96 70 - 100 mg/dL [facility] 05/24/2025 12:3 8 PM EDT 05/24/2025 12:41 PM EDT Apolinar Mckenzie DO POINT OF CARE TEST ORDERABLES Final Result [address] [address] * NM Lung Perfusion Imaging (05/24/2025 12:25 PM EDT) Anatomical Region Laterality Modality Chest, Lung Nuclear Medicine 05/24/2025 1:07 PM EDT Impressions 05/24/2025 1:22 PM EDT Low probability of pulmonary embolism. Narrative 05/24/2025 1:22 PM EDT NM LUNG PERFUSION IMAGING Lung Perfusion Scan COMPARISON: XR CHEST PA AND LATERAL 2 VIEWS 12:28:18.000 TECHNIQUE: 8.8 mCi of technetium-99m MAA were injected intravenously and images of the lungs were obtained in multiple projections. FINDINGS: Perfusion images demonstrate heterogeneous deposition of radiotracer in both lungs, with more apparent decreased radiotracer deposition in the left middle and lower lung zones as seen only on the posterior view and favored to be related to technique. No definite moderate or large segmental defects to suggest pulmonary embolism. Procedure Note Christian Albarado MD - 05/24/2025 NM LUNG PERFUSION IMAGING Lung Perfusion Scan COMPARISON: XR CHEST PA AND LATERAL 2 VIEWS 12:28:18.000 TECHNIQUE: 8.8 mCi of technetium-99m MAA were injected intravenously andimages of the lungs were obtained in multiple projections. FINDINGS: Perfusion images demonstrate heterogeneous deposition of radiotracer inboth lungs, with more apparent decreased radiotracer deposition in theleft middle and lower lung zones as seen only on the posterior view andfavored to be related to technique. No definite moderate or largesegmental defects to suggest pulmonary embolism. IMPRESSION: Low probability of pulmonary embolism. us Apolinar Mckenzie DO IMG NM LUNG SCAN Final Result * XR CHEST PA AND LATERAL 2 VIEWS (05/24/2025 12:23 PM EDT) Anatomical Region Laterality Modality Chest Computed Radiogr aphy 05/24/2025 12:3 6 PM EDT Impressions 05/24/2025 1:05 PM EDT No acute changes. Narrative 05/24/2025 1:05 PM EDT XR CHEST PA AND LATERAL 2 VIEWS Referring clinician's provided indication for this examination in [facility]: Pain COMPARISON: Compared with prior relevant chest imaging. FINDINGS: Devices/Tubes/Lines: None. Lungs: Similar low lung volumes. No evidence of developing infiltrate or mass. No other significant change. Pleura: No pleural effusion or pneumothorax. Heart/Mediastinum: Stable cardiomediastinal contour. Bones/Soft Tissues: No significant change. Procedure Note Mendez Canseco MD - 05/24/2025 XR CHEST PA AND LATERAL 2 VIEWS Referring clinician's provided indication for this examination in [facility]:Pain COMPARISON: Compared with prior relevant chest imaging. FINDINGS: Devices/Tubes/Lines: None. Lungs: Similar low lung volumes. No evidence of developing infiltrate ormass. No other significant change. Pleura: No pleural effusion or pneumothorax. Heart/Mediastinum: Stable cardiomediastinal contour. Bones/Soft Tissues: No significant change. IMPRESSION: No acute changes. Danat [place] [employer] IMG XR CHEST Final Result * Phosphorus (05/24/2025 5:24 AM EDT) PHOSPHORUS 3.4 2.7 - 4.5 mg/dL [facility] Blood 05/24/2025 5:24 AM EDT 05/24/2025 5:57 AM EDT us Apolinar Mckenzie DO LAB BLOOD ORDERABLES Final Re sult [facility] [address] [place] [address] * Magnesium (05/24/2025 5:24 AM EDT) MAGNESIUM 1.9 1.6 - 2.6 mg/dL [facility] Blood 05/24/2025 5:24 AM EDT 05/24/2025 5:57 AM EDT Apolinar Mckenzie LAB BLOOD ORDERABLES Final Re sult Performing Organization Address City/[facility]/ZIP Co de Phone Number [address] [address] * (ABNORMAL) Basic metabolic panel (05/24/2025 5:24 AM EDT) Only the most recent of3 resultswithin the time period is included. SODIUM 140 133 - 146 mmol/L [facility] CHLORIDE 109(H) 96 - 108 mmol/L [facility] POTASSIUM 5.0 3.3 - 5.1 mmol/L [facility] CO2 24 21 - 35 mmol/L [facility] BUN 40(H) 6 - 19 mg/dL [facility] CREATININE 2.30(H) 0.5 - 1.5 mg/dL [facility] GLUCOSE 120(H) 70 - 99 mg/dL [facility] CALCIUM 8.6 8.4 - 10.3 mg/dL [facility] EGFR 22(L) >59 mL/min/1.7 3m2 [facility] Comment:Estimated glomerular filtration rate calculated using the CKD-EPI refit equation. ANION GAP 12 10 - 20 mmol/L [facility] Blood 05/24/2025 5:24 AM EDT 05/24/2025 5:57 AM EDT Apolinar Mckenzie LAB BLOOD ORDERABLES Final Re sult [address] [address] * (ABNORMAL) D-dimer (05/23/2025 9:36 PM EDT) Pathologist [facility] D-DIMER 4,816(H) <500 ng/mL FEU [facility] Comment:In patients with low to moderate pre-test probability scores for VTE (PE or DVT), a D-Dimer cut-off less than 500 ng/mL (FEU) has a negative predictive value (NPV) of 97 to 100%. Blood 05/23/2025 9:36 PM EDT 05/23/2025 10:00 PM EDT us Leda Solorzano PA-C LAB BLOOD ORDERABLES Fi nal Result Performing Organization Address City/[facility] Co de Phone Number [address] [address] * (ABNORMAL) Troponin (05/23/2025 9:36 PM EDT) Only the most recent of4 resultswithin the time period is included. Troponin-T, HS Gen5 27(H) 0 - 9 ng/L [facility] Blood 05/23/2025 9:36 PM EDT 05/23/2025 10:00 PM EDT Leda Solorzano PA-C LAB BLOOD ORDERABLES Fi nal Result Performing Organization Address [facility] Co de Phone Number [address] [address] * XR CHEST PA AND LATERAL 2 VIEWS (05/23/2025 8:59 PM EDT) Anatomical Region Laterality Modality Chest Computed Radiogr aphy 05/23/2025 10:4 6 PM EDT Impressions 05/23/2025 11:03 PM EDT No acute abnormality. ATTESTATION: I, Charly Nielsen as teaching physician, have reviewed the images for this case and if necessary edited the report originally created by Leda Harmon. Narrative 05/23/2025 11:03 PM EDT XR CHEST PA AND LATERAL 2 VIEWS Referring clinician's provided indication for this examination in Epic: Pain COMPARISON: XR CHEST PA AND LATERAL 2 VIEWS FINDINGS: Devices/Tubes/Lines: None. Lungs: No focal consolidation or pulmonary edema. Pleura: No pleural effusion or pneumothorax. Heart/Mediastinum: Heart size is normal. Aortic atherosclerosis. Bones/Soft Tissues: Degenerative changes of the thoracic spine. Procedure Note Charly Nielsen MD - 05/23/2025 XR CHEST PA AND LATERAL 2 VIEWS Referring clinician's provided indication for this examination in Epic:Pain COMPARISON: XR CHEST PA AND LATERAL 2 VIEWS FINDINGS: Devices/Tubes/Lines: None. Lungs: No focal consolidation or pulmonary edema. Pleura: No pleural effusion or pneumothorax. Heart/Mediastinum: Heart size is normal. Aortic atherosclerosis. Bones/Soft Tissues: Degenerative changes of the thoracic spine. IMPRESSION: No acute abnormality. ATTESTATION: I, Charly Nielsen as teaching physician, have reviewedthe images for this case and if necessary edited the report originallycreated by Leda Harmon. us Leda Solorzano PA-C IMG XR CHEST Final R esult * (ABNORMAL) LFTs (hepatic panel) (05/23/2025 8:47 PM EDT) ALKALINE PHOSPHATASE 82 39 - 117 U/L [facility] TOTAL BILIRUBIN <0.2 0.0 - 1.2 mg/dL [facility] DIRECT BILIRUBIN <0.1 0.0 - 0.2 mg/dL [facility] Bilirubin (Indirect) NOT CALCULATED 0 - 1.5 mg/dL [facility] AST 14 0 - 37 U/L [facility] ALT 12 0 - 40 U/L [facility] TOTAL PROTEIN 7.3 6.5 - 8.0 g/dL [facility] ALBUMIN 3.8(L) 3.9 - 4.8 g/dL [facility] GLOBULIN 3.5 1 - 4.8 g/dL [facility] A/G Ratio 1.09 1.00 - 4.80 RATIO [facility] Blood 05/23/2025 8:47 PM EDT 05/23/2025 8:57 PM EDT us Leda Solorzano PA-C LAB BLOOD ORDERABLES Fi nal Result [facility] [address] [place] [address] * (ABNORMAL) CBC and differential (05/23/2025 8:47 PM EDT) Only the most recent of3 resultswithin the time period is included. WBC 4.89 4.00 - 11.00 K/uL [facility] RBC 3.49(L) 4.00 - 5.20 M/uL [facility] HGB 10.6(L) 12.0 - 16.0 g/dL [facility] HCT 34.5(L) 36.0 - 46.0 % [facility] PLT 165 150 - 450 K/uL [facility] MCV 98.9 80.0 - 100.0 fL [facility] MCH 30.4 27.0 - 31.0 pg [facility] MCHC 30.7(L) 32.0 - 36.0 g/dL [facility] RDW 13.2 11.5 - 14.5 % [facility] MPV 10.7 8.4 - 12.0 fL [facility] NRBC 0.00 0.00 /100 WBCs [facility] ABSOLUTE NRBC 0.00 0.00 K/uL [facility] DIFF METHOD Auto [facility] NEUTS 55.6 48.0 - 76.0 % [facility] LYMPHS 27.6 18.0 - 41.0 % [facility] MONOS 13.9(H) 4.0 - 11.0 % [facility] EOS 2.5 0.0 - 5.0 % [facility] BASOS 0.4 0.0 - 1.5 % [facility] Granulocytes, immature (%) 0.0 0.0 - 0.9 % [facility] ABSOLUTE NEUTS 2.72 1.92 - 7.60 K/uL [facility] ABSOLUTE LYMPHS 1.35 0.72 - 4.10 K/uL [facility] ABSOLUTE MONOS 0.68 0.16 - 1.10 K/uL [facility] ABSOLUTE EOS 0.12 0.00 - 0.50 K/uL [facility] ABSOLUTE BASOS 0.02 0.00 - 0.15 K/uL [facility] Granulocytes, immature 0.00 0.00 - 0.09 K/uL [facility] Blood 05/23/2025 8:47 PM EDT 05/23/2025 8:57 PM EDT Leda Solorzano PA-C LAB BLOOD ORDERABLES Fi nal Result [address] [address] * NT-proBNP (05/23/2025 8:47 PM EDT) NT-PROBNP 354 0 - 450 pg/mL [facility] 05/23/2025 8:47 PM EDT 05/23/2025 8:57 PM EDT Leda Solorzano PA-C LAB BLOOD ORDERABLES Fi nal Result Performing Organization Address City/[facility]/ZIP Co de Phone Number [address] [address] * ECG 12-LEAD (05/06/2025 9:11 PM EDT) Ventricular Rate EKG/MIN 64 BPM [facility] Atrial Rate 64 BPM [facility] FL Interval 164 ms [facility] QRS Duration 88 ms [facility] QT Interval 416 ms [facility] QTC Interval 429 ms [facility] P [place] 41 degrees [facility] R Wave [place] 7 degrees [facility] T Wave [place] 45 degrees [facility] 05/06/2025 9:11 PM EDT 05/07/2025 9:24 AM EDT Narrative [facility] - 05/07/2025 9:24 AM EDT Normal sinus rhythm Normal ECG When compared with ECG of 09-Dec-2024 00:00, No significant change was found Confirmed by Luke [id number]) on 05/07/2025 9:24:40 AM us Christian Reyes MD ECG ORDERABLES Final Result Performing Organization Address City/[facility] Co de Phone Number [facility] * (ABNORMAL) Uric acid (05/03/2025 12:56 PM EDT) URIC ACID 8.7(H) 2.4 - 7.0 mg/dL [facility] Blood 05/03/2025 12:5 6 PM EDT 05/03/2025 1:02 PM EDT Kal Humphrey MD, NIKOLAI LAB BLOOD ORDERABLES Fi nal Result Performing Organization Address [facility] Co de Phone Number [address] [address] * XR FOOT 3 OR MORE VIEWS (LEFT) (05/03/2025 12:13 PM EDT) Anatomical Region Laterality Modality Foot Left Computed Radiogr aphy 05/03/2025 12:5 5 PM EDT Impressions 05/03/2025 12:56 PM EDT No fracture or dislocation. Narrative 05/03/2025 12:56 PM EDT XR FOOT 3 OR MORE VIEWS (LEFT) Referring clinician's provided indication for this examination in Epic: Pain; left great toe pain. ? fracture vs gout COMPARISON: None FINDINGS: No fracture. Normal alignment. Normal joint spaces. No soft tissue swelling. Small calcaneal spur. Procedure Note Norma Beltrán MD - 05/03/2025 XR FOOT 3 OR MORE VIEWS (LEFT) Referring clinician's provided indication for this examination in Epic:Pain; left great toe pain. ? fracture vs gout COMPARISON: None FINDINGS: No fracture. Normal alignment. Normal joint spaces. No soft tissueswelling. Small calcaneal spur. IMPRESSION: No fracture or dislocation. us Kal Humphrey MD, NIKOLAI IMG XR LOWER EXTREMITY Final Result * (ABNORMAL) MICROALBUMIN/CREATININE, RANDOM URINE (03/28/2025 9:36 AM EDT) MICROALB/CRE RATIO 994.9(H) 0 - 20 mg/g Cre [facility] 03/28/2025 9:36 AM EDT 03/28/2025 9:44 AM EDT us Norma Sandoval [employer] HEAD URINE ORDERABLES Final Resu lt Performing Organization Address [facility] Co de Phone Number [address] [address] * (ABNORMAL) TOTAL PROTEIN CREATININE RATIO, RANDOM URINE (03/28/2025 9:36 AM EDT) URINE TOTAL PROTEIN 88.0 mg/dL [facility] URINE CREATININE 59 mg/dL [facility] URINE TP CRE RATIO 1.49(H) 0 - 0.19 [facility] Urine (Urine) 03/28/2025 9:3 6 AM EDT 03/28/2025 9:44 AM EDT us Norma Tex Sandoval [employer] HEAD URINE ORDERABLES Final Resu lt Performing Organization Address [facility] Co de Phone Number [address] [address] * (ABNORMAL) Microalbumin, Urine (03/28/2025 9:36 AM EDT) URINE MICROALBUMIN 58.7(H) 0 - 2.3 mg/dL [facility] 03/28/2025 9:36 AM EDT 03/28/2025 9:44 AM EDT us Norma Tex Sandoval [employer] HEAD URINE ORDERABLES Final Resu lt Performing Organization Address [facility]/ZIP Co de Phone Number [address] [address] * Folate (03/28/2025 9:24 AM EDT) FOLIC ACID 5.8 4.2 - 19.9 ng/mL [facility] Blood 03/28/2025 9:24 AM EDT 03/28/2025 9:27 AM EDT Lakesha Cruz PA-C LAB BLOOD ORDERABLES Final Result [address] [address] * Vitamin B12 (03/28/2025 9:24 AM EDT) VITAMIN B12 633 232 - 1,245 pg/mL [facility] Blood 03/28/2025 9:24 AM EDT 03/28/2025 9:27 AM EDT Lakesha Cruz PA-C LAB BLOOD ORDERABLES Final Result [address] [address] * TSH with reflex (06/14/2020 2:11 PM EDT) TSH 3.53 0.27 - 4.20 uIU/mL [facility] Blood 06/14/2020 2:11 PM EDT 06/14/2020 2:15 PM EDT Alex Veras MD LAB BLOOD ORDERABLES Final Resul t [address] [address] * (ABNORMAL) Hemoglobin A1c (05/19/2020 11:02 AM EDT) HEMOGLOBIN A1C 8.8(H) 4.3 - 5.8 % [facility] Blood 05/19/2020 11:0 2 AM EDT 05/19/2020 11:05 AM EDT us Alex Veras MD LAB BLOOD ORDERABLES Final Resul t [facility] [address] [place] [address] from Last 3 Months or Most Recently Relevant to Health Maintenance Insurance [facility] MEDICARE REPLACEMENT MEDICARE PART A & B [facility] MEDICARE REPLACEMENT MEDICARE PART A & B [facility] MEDICARE REPLACEMENT [facility] MEDICARE REPLACEMENT [facility] MEDICARE REPLACEMENT MEDICARE PART A & B [facility] MEDICARE REPLACEMENT [facility] MEDICARE REPLACEMENT MEDICARE PART A & B [facility] MEDICARE REPLACEMENT [place] [id number] MED[place]ARE PART [place] [id number] [facility] MEDICARE REPLACEMENT MEDICARE PART A & B Advance Directives For more information, please contact: [phone] (9AM - 5PM [facility] [place], Friday-Friday) Documents on File Type Date Recorded 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 [employer] Healthcare Proxy 05/26/2025 2:12 PM Healthcare Proxy 05/25/2025 9:29 AM health care proxy * Full Code (Latest Code Status on File) Date Activated Date Inactivated Comments 05/24/2025 1:27 AM Question Answer Comments Code Status Confirmed With: Patient * Full Code (Confirmed) Date Activated Date Inactivated Comments 07/27/2019 5:15 PM 07/28/2019 8:35 PM Question Answer Comments Code Status Confirmed With: PatientFamily Healthcare Agents on File Name Relationship Healthcare Agent [facility] Communication [facility] Sister .Primary Health Care Agent (Proxy form on file) Care Teams [employer] Relationship Specialty Start Date End Date Name, MD Alex [address] [place] [id number] PCP - General Geriatric Psychiatry 10/02/17 Lakesha Cruz PA-C [address] [place] [phone] [email or web address] Analyst Hematology 01/05/22 Additional Source Comments The information contained in this document represents components of the legal health record. It is not the complete legal health record.[facility]
== END 2025-06-27 10:30 | disposition home or self-care (01) ==
LOC: HO.HHCL 10:29
PROVIDERS: PCP Internal Medicine Geriatric Medicine; Visit Provider Student in an Organized Health Care Education/Training Program
DX: M10.9 Gout, unspecified (principal)
CPT/HCPCS: 36415; 84550

== ENCOUNTER 2025-09-15 10:23 | Outpatient (REF) | payer OTHER, SELFPAY ==
[2025-09-15 14:29] LABS: Cholesterol 209 mg/dL (<200); HDL Cholesterol 75 mg/dL (>40); Triglycerides 79 mg/dL (<150); Uric Acid 8.4 mg/dL (2.4-5.7)
== END 2025-09-15 10:24 ==
LOC: HO.HHCL 10:23
PROVIDERS: PCP Internal Medicine Geriatric Medicine; Visit Provider Internal Medicine Geriatric Medicine
DX: E11.22 Type 2 diabetes mellitus with diabetic chronic kidney disease (principal); N18.4 Chronic kidney disease, stage 4 (severe); M10.9 Gout, unspecified
CPT/HCPCS: 36415; 80061; 84550